=== PATIENT | male | born 1950 | race African-American/Black ===

== ENCOUNTER 2017-03-06 18:01 | Emergency (ER) | payer OTHER ==
[~2017-03-06] VITALS: Ht 175.3 cm; Wt 79.8 kg
[2017-03-06 18:10] VITALS: BP 149/79
--- NOTE | 2017-03-06 18:29 | NUR ---
Patient being evaluated by Dr. Elizabeth at bedside.
--- NOTE | 2017-03-06 18:31 | NUR ---
66/M c/o hypoglycemia since [id number] this afternoon. Hx DM, HTN. Patient is AOX4, at this time. Denies pain. Denies chest pain or SOB. Pt denies having an episode of hypoglycemia in the past, takes Metformin, no insulin use per patient. VSS at this time. No distress noted.
--- NOTE | 2017-03-06 18:42 | NUR ---
Lab at bedside for blood draw.
[2017-03-06] MEDS ORDERED: DEXTROSE 50% 50 ML SYR IVP ONE ×2 (18:45→21:00)
[2017-03-06 18:56] LABS: BASOPHILS # (AUTO) 0.2 K/uL (0.00-0.22); BASOPHILS % (AUTO) 2.3 % (0.0-2.0); EOSINOPHILS # (AUTO) 0.5 K/uL (0-0.4); EOSINOPHILS % (AUTO) 6.7 % (0.0-4.0); HEMATOCRIT 41.6 % (36-52); HEMOGLOBIN 13.8 g/dL (12.0-18.0); MEAN CORPUSCULAR HEMOGLOBIN 28 pg (27-31); MEAN CORPUSCULAR HGB CONC 33 g/dL (33-37); MEAN CORPUSCULAR VOLUME 85 fL (80-94); MONOCYTES # (AUTO) 0.7 K/uL (0.8-1.0); MONOCYTES % (AUTO) 9.8 % (1.7-9.3); NEUTROPHILS % (AUTO) 67.2 % (42.2-75.2); PLATELET COUNT (AUTO) 210 K/uL (140-450); RED BLOOD CELL COUNT(AUTO) 4.93 MIL/uL (4.20-6.10); RED CELL DISTRIBUTION WIDTH 13.6 % (11.6-13.7); WHITE BLOOD COUNT (AUTO) 7.4 K/uL (4.8-10.8)
[2017-03-06 18:58] LABS: APPEARANCE,URINE CLEAR (CLEAR); BILIRUBIN,URINE NEGATIVE (NEGATIVE); BLOOD, URINE TRACE-L (NEGATIVE); COLOR,URINE YELLOW (YELLOW); LEUKOCYTE ESTERASE ,URINE NEGATIVE (NEGATIVE); NITRITE, URINE NEGATIVE (NEGATIVE); PH,URINE 6.5 (5.0-9.0); UGLUCOSE NEGATIVE (NEGATIVE)
[2017-03-06 19:08] LABS: RBC,URINE 0-5 (RARE) /HPF (0-5); WBC,URINE NONE SEEN /HPF (0-5)
--- NOTE | 2017-03-06 19:16 | NUR ---
Pt report given to Magan LEVINE. Transfer of care at this time.
--- NOTE | 2017-03-06 19:17 | NUR ---
Food tray provided to pt.
[2017-03-06 19:18] LABS: ALBUMIN 3.6 g/dL (3.4-5.0); ANION GAP 11.1 (8-16); CARBON DIOXIDE 30.7 mmol/L (21-32); CREATININE 1.1 mg/dL (0.7-1.3); TOTAL BILIRUBIN 0.3 mg/dL (0.0-1.0)
[2017-03-06 19:22] LABS: POTASSIUM 2.8 mmol/L (3.5-5.1)
[2017-03-06] MEDS ORDERED: DEXTROSE 25% 10 ML SYR IVP ONE (20:40)
--- NOTE | 2017-03-06 20:53 | NUR ---
DEX 25 NOT AVAILABLE IN [facility], HOUSE SUP NOTIFIED, MOHAMMED.
--- NOTE | 2017-03-06 20:56 | NUR ---
PT GIVEN 2 CARTONS OF ORANGE JUICE, WHILE WAITING FOR DEX 25
--- NOTE | 2017-03-06 22:40 | NUR ---
PT PROVIDED WITH JUICE AND CRACKERS OTHERWISE, PT CALM AND COOPERATIVE. PT STATES HE IS JUST COLD, PT PROVIDED WITH WARM BLANKET
--- NOTE | 2017-03-07 00:05 | NUR ---
IV removed, catheter intact and site benign. Applied folded 4x4 gauze and tape to stop bleeding.
--- NOTE | 2017-03-07 00:09 | NUR ---
Patient discharged with v/s stable. Written and verbal after care instructions given and explained. Patient verbalized understanding. Ambulatory with steady gait. All questions addressed prior to discharge. Advised to follow up with PMD. PT GIVEN JUICE AND CRACKERS AND ENCOURAGED TO CHECK BLOOD SUGAR ROUTINELY WELL DIET AND NUTRITION TO MAINTAIN NORMAL BLOOD SUGAR RANGE >70 AND SIGNS AND SYMPTOMS OF HYPOGLYCEMIA AND HYPERGLYCEMIA.
[2017-03-07 00:11] VITALS: BP 129/76
== END 2017-03-07 00:09 | disposition home or self-care (01) ==
LOC: MED 18:01
DX: E11.649 Type 2 diabetes mellitus with hypoglycemia without coma (principal); I10 Essential (primary) hypertension; F17.210 Nicotine dependence, cigarettes, uncomplicated
CPT/HCPCS: 36415; 71010; 80053; 81001; 82948; 84484; 85025; 93005; 96374; 96375; 99285

== ENCOUNTER 2018-12-02 15:52 | Inpatient (IN) | payer OTHER ==
[~2018-12-02] VITALS: Ht 175.3 cm; Wt 114.3 kg
--- NOTE | 2018-12-02 16:00 | NUR ---
PT AMB TO BED 6 WITH STEADY GAIT
--- NOTE | 2018-12-02 16:01 | NUR ---
WITH CANE ASSISTANCE
[2018-12-02 16:02] VITALS: BP 124/58
--- NOTE | 2018-12-02 16:02 | NUR ---
DR CARCAMO AT BEDSIDE
--- NOTE | 2018-12-02 16:02 | NUR ---
C/O SOB X 2 DAYS. UPON TRIAGE PATIENT AT 72% RA. PT STARTED ON 5 L NC AND WENT UP TO 83%. PATIENT PLACED ON MASK AT 10L NOW AT 96%. WHEEZING BILATERALLY. RR 13. PITTING EDEMA IN LOWER EXTREMITIES. DENIES COPD, ASTHMA, CP, DIZZINESS, NAUSEA. BED DOWN, LOCKED, BED RAIL X 1, ERMD TO SEE PT. PMH- HTN, DM
[2018-12-02] MEDS ORDERED: ALBUTEROL 0.083% 2.5 MG/3 ML NEBU INH ONE (16:25)
[2018-12-02] MEDS ORDERED: IPRATROPIUM 0.02% 0.5 MG/2.5 ML NEBU INH ONE (16:25)
[2018-12-02] MEDS ORDERED: methylPREDNISolone SS 125 MG in WATER STERILE 2 ML IV ONE (16:25)
--- NOTE | 2018-12-02 16:30 | NUR ---
XRAY AT BEDSIDE
--- NOTE | 2018-12-02 16:36 | NUR ---
RT AT BEDSIDE
--- NOTE | 2018-12-02 16:57 | NUR ---
PATIENT STATES HE HAS BEEN SMOKING SINCE HE WAS 18
--- NOTE | 2018-12-02 16:59 | NUR ---
PT ON 5 L NC AT 93%
[2018-12-02] MEDS ORDERED: NACL 0.9% 3,000 ML IV ONE (17:44)
[2018-12-02] MEDS ORDERED: LEVOFLOXACIN 750 MG/D5W PREMIX 150 ML IV ONE (17:45)
[2018-12-02] MEDS ORDERED: VANCOMYCIN 1,000 MG in DEXTROSE 5% 250 ML IV ONE (17:45)
--- NOTE | 2018-12-02 18:01 | NUR ---
LAB AT BEDSIDE FOR BLOOD CULTURES
--- NOTE | 2018-12-02 18:02 | NUR ---
PT PLACED ON 10 L MASK. CONTINUED TO DROP INTO 80'S ON NC
[2018-12-02] MEDS ORDERED: VANCOMYCIN 1,000 MG VIAL ONE (18:04)
--- NOTE | 2018-12-02 18:23 | NUR ---
PT STATES HE DOESNT KNOW THE NAME OF ANY OF HIS MEDICATIONS
[2018-12-02 18:26] LABS: BASOPHILS % (AUTO) 0.3 % (0.0-2.0); EOSINOPHILS # (AUTO) 0.4 K/uL (0-0.4); EOSINOPHILS % (AUTO) 5.4 % (0.0-4.0); HEMATOCRIT 28.2 % (36-52); HEMOGLOBIN 8.7 g/dL (12.0-18.0); LYMPHOCYTES # (AUTO) 0.7 K/uL (2.0-11.5); LYMPHOCYTES % (AUTO) 9.6 % (20.5-51.1); MEAN CORPUSCULAR HEMOGLOBIN 22 pg (27-31); MEAN CORPUSCULAR HGB CONC 31 g/dL (33-37); MEAN CORPUSCULAR VOLUME 71.3 fL (80-94); MONOCYTES # (AUTO) 0.4 K/uL (0.8-1.0); MONOCYTES % (AUTO) 6.2 % (1.7-9.3); NEUTROPHILS # (AUTO) 5.5 K/uL (1.8-7.7); NEUTROPHILS % (AUTO) 78.5 % (42.2-75.2); PLATELET COUNT (AUTO) 204 K/uL (140-450); RED BLOOD CELL COUNT(AUTO) 3.95 MIL/uL (4.20-6.10); RED CELL DISTRIBUTION WIDTH 17.9 % (11.6-13.7)
[2018-12-02 18:45] LABS: PROTHROMBIN TIME 9.9 secs (10.8-13.4)
--- NOTE | 2018-12-02 18:45 | NUR ---
RECEIVED ENDORSEMENT FROM ED NURSE TEE. PATIENT IS AAOX4, SYRIAC SPEAKING. PATIENT IS ON 10L SIMPLE FACE MASK. RIGHT AC 20G IV INTACT, PATENT, AND INFUSING IVF. PATIENT AMBULATED TO BED WITH UNSTEADY GAIT, CANE AT BEDSIDE. VS OBTAINED, WILL ENDORSE TO OFFAL SEPARATOR. PATIENT IS STABLE AT THIS TIME.
[2018-12-02 18:47] LABS: POTASSIUM 3.6 mmol/L (3.5-5.1)
[2018-12-02 18:48] LABS: ALBUMIN 3.4 g/dL (3.4-5.0); ANION GAP 11.6 (8-16); CREATININE 1.6 mg/dL (0.7-1.3); TOTAL BILIRUBIN 0.6 mg/dL (0.0-1.0)
[2018-12-02 18:48] LABS: APPEARANCE,URINE CLEAR (CLEAR); BILIRUBIN,URINE NEGATIVE (NEGATIVE); BLOOD, URINE NEGATIVE (NEGATIVE); COLOR,URINE YELLOW (YELLOW); LEUKOCYTE ESTERASE ,URINE NEGATIVE (NEGATIVE); NITRITE, URINE NEGATIVE (NEGATIVE); PH,URINE 5.5 (5.0-9.0); UGLUCOSE NEGATIVE (NEGATIVE)
--- NOTE | 2018-12-02 18:53 | NUR ---
Patient will be admitted to care of GROBLER. Admited to TELE. Will go to room 120B. Belongings list completed. Report to ROSIE LEVINE. 100 ML OF LEVAQUIN STILL RUNNING UPON ADMIT, 2700ML OF NACL STILL RUNNING UPON ADMIT. PENDING MEDS- ODALYS
--- NOTE | 2018-12-02 19:20 | NUR ---
ENDORSED TO MANAGER FIELD SERVICE NURSE FOR CONTINUITY OF CARE. PATIENT IS STABLE AT THIS TIME.
--- NOTE | 2018-12-02 19:21 | NUR ---
REPORT RECEIVED FROM AM NURSE AT BEDSIDE. PT IN STABLE CONDITION. AAOX4. INTRODUCED SELF TO PT. BOARD UPDATED. NO COMPLAINTS OF PAIN. PT HAS SOB BUT IS ON 10L VIA SIMPLE MASK. AFEBRILE. IV SITE R AC 20G RUNNING 1/2NS@50ML/HR PATENT AND INTACT. SKIN WARM, DRY AND INTACT WITH NO OPEN WOUNDS. BED LOCKED IN LOW POSITION. CALL RUFFIN WITHIN REACH. SAFETY PRECAUTION IN PLACE. ALL NEEDS MET AT THIS TIME.
[2018-12-02 20:00] VITALS: BP 136/64
--- NOTE | 2018-12-02 20:38 | NUR ---
ODALYS JOSUE AND RUNNING. PT TOLERATING WELL.
--- NOTE | 2018-12-02 21:45 | NUR ---
PT AWAKE AND ALERT WATCHING TV AND RECEIVING BREATHING TREATMENT. PT IS SOB BUT NO OTHER S/S OF DISTRESS NOTED. WILL CONTINUE TO MONITOR.
[2018-12-02] MEDS: ALBUTEROL 0.083% 2.5 MG/3 ML NEBU IH PRN (21:51)
--- NOTE | 2018-12-02 23:45 | NUR ---
DILAUDID GIVEN FOR 01/02 GENERALIZED PAIN. PT TOLERATED WELL. BS 109. NO INSULIN COVERAGE NEEDED. Addendum: 12/02/18 at 2353 by Renzo Sherwood RN WRONG PATIENT WRONG INTERVENTION.
[2018-12-03] VITALS (66 sets, daily range): BP systolic 80–167; BP diastolic 45–114
[2018-12-03] MEDS ORDERED: methylPREDNISolone SS 40 MG in WATER STERILE 1 ML IV ONE ×2
[2018-12-03] MEDS: methylPREDNISolone SS 40 MG/ML VIAL IVP SCH ×5 (00:06→23:09)
--- NOTE | 2018-12-03 00:06 | NUR ---
SOLUMEDROL GIVEN IVP. PT TOLERATED WELL.
[2018-12-03] MEDS: ALBUTEROL 0.083% 2.5 MG/3 ML NEBU IH PRN ×2 (00:47→03:48)
[2018-12-03] MEDS: NACL 0.45% 1,000 ML IV SCH ×2 (01:00→13:16)
--- NOTE | 2018-12-03 01:01 | NUR ---
PATIENT HAVING SHORTNESS OF BREATH. HHNTX GIVEN. NO IMPROVED. PATIENT STATES HE CAN NOT BREATH. PLACED PATIENT ON BIPAP. IPAP12 EPAP 5 RR 16 FIO2 50%. WILL TITRATE FIO2 TO KEEP SATS GREATER THAN 88%. PT IS TOLERATING BIPAP AT THIS TIME. DR GREEN CALLED. NO REPONSE
--- NOTE | 2018-12-03 01:05 | NUR ---
MD NOTIFIED OF PATIENTS INCREASED WORK OF BREATHING. AWAITING CALL BACK FROM .
--- NOTE | 2018-12-03 01:15 | NUR ---
CALLED BACK. RECOMMENDED BIPAP ORDER AND ATIVAN. ORDERED [email or web address]. RR 16. FIO2 TOLERATED. ATIVAN 1MG IVP Q6H PRN FOR ANXIETY. TORB.
[2018-12-03] MEDS: LORazepam 2 MG/ML VIAL IM/IVP PRN ×2 (01:40→05:46)
--- NOTE | 2018-12-03 01:40 | NUR ---
ATIVAN GIVEN FOR AGITATION. PT TOLERATED WELL.
--- NOTE | 2018-12-03 01:50 | NUR ---
MD CALLED. TOLD TO CHANGE BIPAP SETTINGS TO IPAP 14/EPAP10 AND WANTS TO KEEP O2 SAT 90-94%. ORDERED ABG 1 HOUR AFTER BEING ON BIPAP. TORB
--- NOTE | 2018-12-03 02:04 | NUR ---
placed patient on ipap of 10 and epap of 14. patient could not tolerate it. pt became agitated. placed pt on ipap12 epap6 and patient tolerated that setting. abg pending
--- NOTE | 2018-12-03 02:49 | NUR ---
post abg dr machado asked to change bipap to ipap 18 and epap 10. pt will be transfered to icu
--- NOTE | 2018-12-03 03:15 | NUR ---
TRANS IN FROM TELEMETRY THIS 68 YEAR OLF MALE PATIENT DUE RESPIRATORY DISTRESS; ON 4O% BIPAP. PATIENT IS ALERT,BUT SOMEWHAT RESTLESS. IVF IN PROGRESS 1/2 NS AT 50 ML/HR VIA G 20 IV CANNULA ON RIGHT AC; PATENT AND INTACT.ABDOMEN SOFT, BOWEL SOUNDS ACTIVE.
--- NOTE | 2018-12-03 03:15 | NUR ---
PT TRANSFERRED TO ICU. PT NOT IN STABLE CONDITION. REPORT GIVEN TO ELTON CHARGE NURSE.
--- NOTE | 2018-12-03 03:22 | NUR ---
0315 PT TRANSFERED TO ICU 3 ON BIPAP
--- NOTE | 2018-12-03 03:53 | NUR ---
PT GIVEN HHNTX DUE TO SOB
--- NOTE | 2018-12-03 04:50 | NUR ---
CALLED RT FOR PATIENT DESATTING TO 70'S%. RT AT PATIENT BEDSIDE TO ADJUST SETTINGS
[2018-12-03 05:48] LABS: BASOPHILS % (AUTO) 0.2 % (0.0-2.0); HEMATOCRIT 30.4 % (36-52); HEMOGLOBIN 9.2 g/dL (12.0-18.0); LYMPHOCYTES # (AUTO) 0.4 K/uL (2.0-11.5); LYMPHOCYTES % (AUTO) 4.3 % (20.5-51.1); MEAN CORPUSCULAR HEMOGLOBIN 22 pg (27-31); MEAN CORPUSCULAR HGB CONC 30 g/dL (33-37); MEAN CORPUSCULAR VOLUME 72.3 fL (80-94); MONOCYTES # (AUTO) 0.1 K/uL (0.8-1.0); MONOCYTES % (AUTO) 1.2 % (1.7-9.3); NEUTROPHILS # (AUTO) 8.4 K/uL (1.8-7.7); NEUTROPHILS % (AUTO) 94.3 % (42.2-75.2); PLATELET COUNT (AUTO) 195 K/uL (140-450); RED BLOOD CELL COUNT(AUTO) 4.21 MIL/uL (4.20-6.10); RED CELL DISTRIBUTION WIDTH 17.4 % (11.6-13.7); WHITE BLOOD COUNT (AUTO) 8.9 K/uL (4.8-10.8)
--- NOTE | 2018-12-03 05:48 | NUR ---
PATIENT VERY ANXIOUS AND THRASHING HANDS UP AND AROUND, YELLING HE IS COLD, ATTEMPTED TO REORIENT PATIENT AND CALM HIM DOWN, PATIENT CONTINUING TO SCREAM AND DEGOWN. GIVEN PRN MEDS. RN AT BEDSIDE TO MONITOR CLOSELY
[2018-12-03] MEDS ORDERED: PROPOFOL 1000 MG/100 ML PREMIX 100 ML IV PRN (06:25)
--- NOTE | 2018-12-03 06:44 | NUR ---
0547 ab drawn and results given to dr machado. dr machado said to have er dr holder intubate.
--- NOTE | 2018-12-03 06:46 | NUR ---
0600 dr holder came to intubate. pt was a hard intubation so lma had to be used. size 5. pt placed on ac 12 vt 500 peep 5 and fio2 100%.
[2018-12-03 06:50] LABS: ALBUMIN 3.5 g/dL (3.4-5.0); ANION GAP 11.7 (8-16); CARBON DIOXIDE 30.7 mmol/L (21-32); CREATININE 1.3 mg/dL (0.7-1.3); POTASSIUM 4.4 mmol/L (3.5-5.1); TOTAL BILIRUBIN 0.5 mg/dL (0.0-1.0)
--- NOTE | 2018-12-03 06:52 | NUR ---
CALLED PATIENT'S FAMILY, NATALIE GRANDA TO UPDATE ON PATIENT'S MEDICAL CONDITION BUT NOBODY PRINT COLOR OPERATOR THE PHONE; LEFT MESSAGE.
--- NOTE | 2018-12-03 06:55 | NUR ---
DR. GREEN CALLED, UPDATED ON PATIENT'S MEDICAL CONDITION, NO FURTHER ORDER MADE.
[2018-12-03] MEDS ORDERED: PROPOFOL 1000 MG/100 ML PREMIX 100 ML IV ONE (06:57)
--- NOTE | 2018-12-03 07:10 | NUR ---
ORDERED ANESTHESIOLOGIST TO INTUBATE PATIENT. ONLY LMA STARTED WILL ENDORSE
--- NOTE | 2018-12-03 07:16 | NUR ---
PATIENT STABLE AT THIS TIME, ON PROPOFOL DRIP, 5MCG/KG/MIN. DRY WEIGHT OF 116KG. RASS -3
--- NOTE | 2018-12-03 07:28 | NUR ---
RECEIVED BEDSIDE REPORT FROM CANTEEN MANAGER RNCIPRIANO. PATIENT IS SEDATED, IN PREPARATION FOR INTUBATION BE DR. WILHELM, ANESTHESIOLOGIST. DR. GREEN IS AT BEDSIDE, UPDATED ON PATIENT'S CONDITION. PATIENT SKIN IS WARM, DRY, NOT INTACT, HAS OPEN WOUND TO LEFT LOWER LEG. PATIENT HAS PERIPHERAL IV SITE TO RIGHT AC, 20 GAUGE. NO SIGNS OF DISTRESS AT THIS TIME, WILL CONTINUE TO MONITOR
--- NOTE | 2018-12-03 07:35 | NUR ---
, ANESTHESIOLOGIST, AND RT AT BEDSIDE TO START INTUBATION
[2018-12-03] MEDS ORDERED: FUROSEMIDE 40 MG/4 ML VIAL IVP SCH (07:46)
--- NOTE | 2018-12-03 07:48 | NUR ---
PATIENT INTUBATED BY DR. WILHELM, RT AT BEDSIDE, DR. GREEN AT BEDSIDE. PATIENT TOLERATED WELL.
--- NOTE | 2018-12-03 08:27 | NUR ---
PATIENT HAS BEEN SCREENED AND CATEGORIZED MODERATE NUTRITION RISK. PATIENT WILL BE SEEN WITHIN 3-5 DAYS OF ADMISSION. 12/05/18JAY [address]
--- NOTE | 2018-12-03 09:00 | NUR ---
Dr ordered intubation via glide scope, hard intubation, used LMA and then pt was placed on ventilator per Dr Burnetter vent order.
[2018-12-03] MEDS ORDERED: ETOMIDATE 20 MG/10 ML VIAL IVP ONE (09:15)
[2018-12-03] MEDS ORDERED: SUCCINYLCHOLINE CHLORIDE 200 MG/10 ML VIAL IVP ONE ×2 (09:15)
[2018-12-03] MEDS: ENOXAPARIN 40 MG/0.4 ML SYR SUBQ SCH (09:27)
--- NOTE | 2018-12-03 09:33 | NUR ---
DR. WALTERS IS HERE TO SEE PATIENT, UPDATED ON PATIENT'S CONDITION
--- NOTE | 2018-12-03 09:45 | NUR ---
DR. WALTERS IS AWARE THAT WE ARE UNABLE TO GET IN CONTACT WITH PATIENT'S DAUGHTER TO OBTAIN CONSENT, HE STATES THAT CT SCAN IS NOT URGENT AND CAN WAIT UNTIL CONSENT IT OBTAINED.
[2018-12-03] MEDS ORDERED: POTASSIUM CHLORIDE 10 MEQ TABER PO PRN (09:55)
[2018-12-03] MEDS: fentaNYL 1 MG in NACL 0.9% 80 ML IV PRN (10:41)
--- NOTE | 2018-12-03 10:59 | NUR ---
STARTED PATIENT ON PROPOFOL AT 5MCG/KG/MIN, PATIENT'S DRY WEIGHT IS 116KG. ORDER IS TO MAINTAIN RASS OF -2
[2018-12-03] MEDS: PROPOFOL 1000 MG/100 ML PREMIX 100 ML IV PRN ×3 (11:08→23:07)
[2018-12-03] MEDS ORDERED: ALBUTEROL 0.083% 2.5 MG/3 ML NEBU INH PRN (11:35)
--- NOTE | 2018-12-03 12:09 | NUR ---
CONTACTED PATIENT'S PCP DR WILBERTO NAVARRO'S OFFICE AT [phone], ABLE TO SPEAK TO CRYSTAL. SHE PROVIDED ME WITH Nov AT 2155. COPY OF APPOINTMENT PROVIDED TO THE PATIENT.
[2018-12-03] MEDS: ALBUTEROL SULFATE/IPRATROPIU 3 ML SOL IH SCH ×2 (13:06→20:39)
[2018-12-03] MEDS: MIDODRINE 5 MG TAB PO SCH ×3 (13:15→23:09)
--- NOTE | 2018-12-03 14:51 | NUR ---
PATIENT'S BROTHER, OXANA JAMISON, IS HERE, STATES THAT HE WILL GET INTO CONTACT WITH PATIENT'S DAUGHTER.
--- NOTE | 2018-12-03 15:33 | NUR ---
WOUND CARE EVALUATION NOTE: REASON FOR CONSULTATION: LLE ULCER AND LOW FAUSTO SCALE WOUND ASSESSMENT DONE TO LLE TO THIS 68 Y/O MALE WITH INITIAL DX: OF SOB X 2 DAYS. PT IS SEDATED AND INTUBATED. POC DISCUSSED WITH PRIMARY RN INTEGUMENTARY: -LEFT LOWER EXTREMITY WITH OLD SKIN GRAFT / HEALED SCARS -LEFT LOWER MEDIAL LEG 2 ULCERATIONS WITH WOUND EDGE ALMOST MERGED: PROXIMAL SITE 3X3X0.8CM WOUND BED IS PINK WITH TRACE YELLOW SLOUGH, MILD SEROUS DRAINAGE, NO ODOR. DISTAL SITE 5X3X0.5 CM WOUND BED IS PINK WITH TRACE YELLOW SLOUGH, MILD SEROUS DRAINAGE, NO ODOR, PINA-WOUNDS SKIN INTACT. -XEROSIS TO RIGHT AND LEFT FEET WITH DRY CRUSTED SKIN -SACRAL COCCYX HEALING SCAR AT REMODELING STAGE, PINA WOUND BLANCHABLE REDNESS EXTENDED TO LEFT AND RIGHT BUTTOCKS. -BLANCHABLE REDNESS TO SACRALCOCCYX AND BUTTOCKS -BILATERAL HEELS BLANCHABLE REDNESS RECOMMENDATIONS: -APPLY SKIN MOISTURIZER TO L/R FEET BID -CLEANSE LLE VASCULAR ULCER WITH WOUND CLEANSING SOLUTION, PAT DRY, APPLY THERAHONEY DRESSING AND COVER WITH DRY DRESSING AND SECURE WITH TAPE 3XWEEK, M-W-F AND PRN IF SOILING -CLEANSE SACRAL COCCYX, R/L BUTTOCKS WITH SOAP AND WATER, PAT DRY, COVER WITH OPTIFORM DRESSING QD AND PRN IF SOILING -TURN AND REPOSITION Q2H, OFFLOAD RIGHT EAR, SACROCOCCYX AND BUTTOCKS -OFFLOAD BILATERAL HEELS BY PLACING PILLOWS UNDER CALVES ALWAYS, UNLESS OTHERWISE CONTRAINDICATED -PRESSURE REDISTRIBUTION SURFACE THERAPY RECOMMENDATIONS DISCUSSED WITH PRIMARY RN WILL FOLLOW UP PATIENT Q 7 -10 DAYS AND PRN. PLEASE CONTACT WOUND CARE NURSE FOR ANY CONCERNS AND CHANGES IN WOUND CONDITION
--- NOTE | 2018-12-03 16:54 | NUR ---
DR. MARTINEZ IN TO SEE PATIENT, UPDATED ON PATIENT'S CONDITION.
--- NOTE | 2018-12-03 17:31 | NUR ---
RT AT BEDSIDE, FIO2 TITRATED TO 60%, O2 SAT IS 95
--- NOTE | 2018-12-03 17:52 | NUR ---
After ABG Per DR. Carmona cont. current setting with follow-up ABG in the morning. Will indorse to LADARIUS. RN aware.
--- NOTE | 2018-12-03 19:30 | NUR ---
RECEIVED REPORT FROM DAY SHIFT RN NO ACUTE DISTRESS NOTED WILL CONTINUE TO OBSERVE.
--- NOTE | 2018-12-03 19:45 | NUR ---
PT HAS EYES CLOSED; AROUSABLE, NODS HEAD WHEN PROMPTED. PT DENIES PAIN. FLACC 0. PERIORBITAL EDEMA NOTED. 7.5 ETT TO VENT ON 60% FIO2 TV 500 PEEP 5 R 25. LUNGS CLEAR/DIMINISHED, SCANT SPUTUM THORUGH INLINE SUCTION. SR 60-70S, GENERALIZED EDEMA +1. +1 WEAK PULSES TO BILAT RADIAL AND BILAT PEDAL +1. NGT TO R NARES. FLUSHED, + PLACEMENT. ACTIVE BOWEL SOUNDS X4 QUADRANTS. NICOLE CATH IN PLACE, YELLOW URINE NOTED. SKIN NON INTACT; L LOWER LEG OPEN WOUND, DRESSING IN PLACE, CDI. PIV TO R AC 20 G. PT ON PROPOFOL DRIP @ 10 MCG/KG/MIN. FENTANYL DRIP @ 50 MCG/KG/HR. BED LOCKED IN LOWEST POSITION. SAFETY PRECAUTIONS IN PLACE. ALARMS CHECKED AND VERIFIED. DRY WEIGHT: 116 KG Addendum: 12/05/18 at 2223 by Rico Becker RN 0.5 MCG/KG/HR
[2018-12-03] MEDS: LEVOFLOXACIN 500 MG/D5W PREMIX 100 ML IV SCH (20:27)
--- NOTE | 2018-12-03 21:10 | NUR ---
RECEIVED PATIENT ENDOTRACHEALLY INTUBATED WITH 7.5 ETT TO MECHANICAL VENTILATOR AT SETTINGS: AC/VC 25, 500, +5, 60%. VENT CHECK DONE. VENT ALARMS ON AND AUDIBLE. VENT PLUGGED INTO RED OUTLET. VENT WHEELS LOCKED. AMBU BAG AT [facility]. AIRWAY SECURE AND PATENT. SUCTIONED SCANT AMOUNT OF THIN, CLEAR SECRETIONS. SCHEDULED BREATHING TREATMENT ADMINISTERED. TOLERATED TX WELL WITHOUT ADVERSE SIDE EFFECTS. NO ACUTE DISTRESS NOTED AT THIS TIME. WILL CONTINUE TO MONITOR. Addendum: 12/04/18 at 0123 by Génesis Funes RT FIO2 TITRATED TO 50%, PULSE OX SAT 98%.
--- NOTE | 2018-12-03 23:17 | NUR ---
VENT CHECK DONE. VENT ALARMS ON AND AUDIBLE. SUCTIONED SCANT AMOUNT OF THIN, CLEAR/YELLOW SECRETIONS. NO ACUTE DISTRESS. WILL CONTINUE TO MONITOR.
[2018-12-04] VITALS (102 sets, daily range): BP systolic 95–154; BP diastolic 54–116
--- NOTE | 2018-12-04 00:24 | NUR ---
PT TURNED AND REPOSITIONED. FLACC 0. VSS. NO ACUTE DISTRESS NOTED. WILL CONTINUE TO OBSERVE.
[2018-12-04] MEDS: fentaNYL 1 MG in NACL 0.9% 80 ML IV PRN (00:52)
[2018-12-04] MEDS: ALBUTEROL SULFATE/IPRATROPIU 3 ML SOL IH SCH ×4 (01:15→19:45)
--- NOTE | 2018-12-04 01:28 | NUR ---
VENT CHEK DONE. VENT ALARMS ON AND AUDIBLE. SCHEDULED BREATHING TREATMENT ADMINISTERED. TOLERATED TX WELL WITHOUT ADVERSE SIDE EFFECTS. NO ACUTE RESPIRATORY DISTRESS NOTED AT THIS TIME. WILL CONTINUE TO MONITOR.
--- NOTE | 2018-12-04 03:15 | NUR ---
AM CARE PROVIDED; LINEN CHANGED, X1 BM NOTED. PT TOLERATED WELL.
[2018-12-04] MEDS: MIDODRINE 5 MG TAB PO SCH ×3 (05:57→17:37)
[2018-12-04] MEDS: methylPREDNISolone SS 40 MG/ML VIAL IVP SCH ×3 (05:57→17:37)
[2018-12-04] MEDS: PROPOFOL 1000 MG/100 ML PREMIX 100 ML IV PRN ×3 (06:25→20:26)
--- NOTE | 2018-12-04 07:22 | NUR ---
BEDSIDE REPORT RECEIVED FROM GLOVE SEWER NURSE ERIC, POC REVIEWED, PT ON ETT TO VENT ON PROPOFOL AND FENTANYL DRIP, RESTING QUIETLY WITH EYES CLOSED, OPENS EYES TO VOICE, FOLLOWS COMMANDS, PROPERTY CONSULTANT HANDS ON COMMANDS, FLACC 0, VENT SETTING: FIO2 50%, VT 500, RR 25, PEEP 5, ETT 7.5FR, 22CM AT GUM, GOOD CHEST RISE AND FALL NOTED, HR 67, NSR ON SLASHER TENDER HELPER, 20G PIV TO RIGHT AC AND RIGHT UPPER ARM, INFUSING WELL, SITES WNL, PROPOFOL INFUSING AT 15MCG/KG/MIN (DRY WT 116KG), FENTANYL INFUSING AT 0.5MCG/KG/HR, GENERALIZED EDEMA TO BILAT UPPER AND LOWER EXT, +1-2 PITTING, NGT IN RIGHT NARE CLAMPED, ABD ROUND, SOFT, + BS TO ALL 4 QUADS, NICOLE CATH IN PLACE, DRAINING CLEAR YELLOW TO GRAVITY, SKIN WARM AND DRY, OPEN WOUND TO POSTERIOR LEFT LOWER LEG COVERED WITH DRESSING, CDI, PT WITH SOFT WRIST RESTRAINTS TO PREVENT PULLING ON LINES AND TUBINGS. BED LOCKED IN LOW POSITION, PT IN NO ACUTE DISTRESS AT THIS TIME, WILL CONTINUE TO MONITOR.
--- NOTE | 2018-12-04 07:33 | NUR ---
RECEIVED PT ON [place]ESCAPE ON DOCUMENTED SETTINGS, ALARMS ARE ON AND AUDIBLE, PTS ETT IS SECURE SIZE 7.5 AT 24 CM, PT IN HF QUIET, BS MODESTO, HHN GIVEN I\L WITH 3 MG DUONEB, BMV HOB, VENT PLUGGED INTO RED OUTET PT IS RESTRAINED
--- NOTE | 2018-12-04 07:44 | NUR ---
DECREASED FIO2 TO 35 SPO2 93
[2018-12-04 08:02] LABS: HEMATOCRIT 28.4 % (36-52); HEMOGLOBIN 8.7 g/dL (12.0-18.0); LYMPHOCYTES # (AUTO) 0.3 K/uL (2.0-11.5); LYMPHOCYTES % (AUTO) 3.5 % (20.5-51.1); MEAN CORPUSCULAR HEMOGLOBIN 22 pg (27-31); MEAN CORPUSCULAR HGB CONC 31 g/dL (33-37); MEAN CORPUSCULAR VOLUME 70.9 fL (80-94); MONOCYTES # (AUTO) 0.6 K/uL (0.8-1.0); MONOCYTES % (AUTO) 6.1 % (1.7-9.3); NEUTROPHILS # (AUTO) 8.4 K/uL (1.8-7.7); NEUTROPHILS % (AUTO) 90.4 % (42.2-75.2); PLATELET COUNT (AUTO) 194 K/uL (140-450); RED BLOOD CELL COUNT(AUTO) 4.01 MIL/uL (4.20-6.10); RED CELL DISTRIBUTION WIDTH 17.7 % (11.6-13.7); WHITE BLOOD COUNT (AUTO) 9.3 K/uL (4.8-10.8)
--- NOTE | 2018-12-04 08:35 | NUR ---
PT RESTLESS, KICKING LEGS, FENTANYL DRIP TITRATED UP TO 1MCG/KG/HR.
--- NOTE | 2018-12-04 08:40 | NUR ---
PT CALM QUIET RESTING WITH EYES CLOSED.
[2018-12-04] MEDS: ENOXAPARIN 40 MG/0.4 ML SYR SUBQ SCH (09:07)
[2018-12-04] MEDS ORDERED: DEXTROSE 50% 50 ML SYR IVP PRN (09:45)
--- NOTE | 2018-12-04 09:45 | NUR ---
DR WALTERS AT BEDSIDE FOR EVAL.
--- NOTE | 2018-12-04 09:50 | NUR ---
PROPOFOL AND FENTANYL DRIPS STOPPED PER DR WALTERS FOR WEANING, CPAP TRIAL, WILL CONTINUE TO MONITOR.
--- NOTE | 2018-12-04 09:54 | NUR ---
CPAP TRIAL STARTED BY RT.
--- NOTE | 2018-12-04 10:04 | NUR ---
SW contacted patient's daughter, Lizett Perdue [phone] to conduct assessment. SW left voicemail. SW will follow up.
--- NOTE | 2018-12-04 10:10 | NUR ---
CPAP TRIAL ENDED, VENT AUTOMATICALLY TURNED BACK TO AV/VC MODE. RT CALI MADE AWARE. PROPOFOL DRIP RESTARTED. WILL CONTINUE TO MONITOR.
--- NOTE | 2018-12-04 10:40 | NUR ---
DAUGHTER NATALIE GRANDA AT BEDSIDE, CONSENT FOR CONTRAST INJECTION SIGNED.
--- NOTE | 2018-12-04 11:12 | NUR ---
ADVANCED ETT 3 CM TO 24 CM CXR ORDERED
--- NOTE | 2018-12-04 11:28 | NUR ---
CXR AT BEDSIDE TO CONFIRM ETT PLACEMENT
[2018-12-04] MEDS ORDERED: MORPHINE SULFATE 4 MG/ML SYR IVP PRN (11:30)
--- NOTE | 2018-12-04 11:45 | NUR ---
DAUGHTER NATALIE AND FAMILY MEMBERS AT BEDSIDE. PT OPENS EYES TO VOICE, RESPONDS BY NODDING/SHAKING HEAD. PT REMAINS ON PROPOFOL DRIP, ETT TO VENT AT FIO2 35%, VT 500, RR 25, PEEP 5.
[2018-12-04 11:53] LABS: ANION GAP 13.8 (8-16); CARBON DIOXIDE 27.6 mmol/L (21-32); POTASSIUM 4.4 mmol/L (3.5-5.1)
[2018-12-04 11:54] LABS: TOTAL BILIRUBIN 0.5 mg/dL (0.0-1.0)
[2018-12-04 11:55] LABS: ALBUMIN 3.1 g/dL (3.4-5.0)
[2018-12-04] MEDS: BLOOD GLUCOSE MONITORING 1 DEV DEV FS SCH ×3 (11:56→20:49)
[2018-12-04] MEDS: INSULIN LISPRO SLIDING SCALE 100 UNITS/ML VIAL SUBQ PRN ×2 (11:57→20:48)
[2018-12-04 12:50] LABS: CREATININE 1.5 mg/dL (0.7-1.3)
--- NOTE | 2018-12-04 12:50 | NUR ---
ORAL CONTRAST VIA NGT STARTED AT THIS TIME.
--- NOTE | 2018-12-04 13:22 | NUR ---
WOUND CARE DONE, LLE WOUND CLEANED WITH NS, PAT DRY, THERAHONEY APPLIED, COVERED WITH DRESSING, SACRAL AREA WITH SLIGHT REDNESS, NO OPEN WOUND, CLEANED, PAT DRY, COVERED WITH OPTIFOAM, PT JEREL WELL, NICLOE CARE DONE, PT CONTINUES WITH ORAL CONTRAST VIA NGT,JEREL WELL, PT RESTING QUIETLY IN NO ACUTE DISTRESS AT THIS TIME, WILL CONTINUE TO MONITOR.
[2018-12-04] MEDS: THERAHONEY WOUND DRESSING TP SCH (14:01)
--- NOTE | 2018-12-04 14:22 | NUR ---
PT RESTING COMFORTABLY, APPEARS IN NO ACUTE DISTRESS, DAUGHTER NATALIE AND BROTHER AT BEDSIDE, PT OCCASIONALLY OPENS EYES TO VOICE. WILL CONTINUE TO MONITOR.
--- NOTE | 2018-12-04 14:23 | NUR ---
12/04/18 RD INITIAL ASSESSMENT COMPLETED PLEASE REFER TO NUTRITION ASSESSMENT UNDER CARE ACTIVITY FOR ESTIMATED NUTRITIONAL NEEDS. 1. RECOMMEND INCREASING TUBE FEEDINGS WITH GLUCERNA 1.2 TO 60 ML/HR WITH PROSOURCE BID -THIS WILL PROVIDE 1848 CALORIES AND 116 GM OF PROTEIN WHICH MEETS 100% OF ESTIMATED NEEDS 2. RECOMMEND FREE WATER FLUSH [address] TO FOLLOW-UP 2-3 DAYS, HIGH RISK JAY HIGHTOWER RD
--- NOTE | 2018-12-04 16:15 | NUR ---
PT TO RADIOLOGY FOR CT ABD AND CHEST WITH CONTRAST WITH RN AND RT ON MONITOR.
--- NOTE | 2018-12-04 16:50 | NUR ---
PT BACK FROM CT.
--- NOTE | 2018-12-04 16:55 | NUR ---
PT AWAKE WITH EYES OPEN, RESTLESS, WAVING HANDS, PROPOFOL RATE INCREASED, WILL CONTINUE TO MONITOR.
--- NOTE | 2018-12-04 17:15 | NUR ---
PT RESTING WITH EYES CLOSED, NO RESP DISTRESS, WILL CONTINUE TO MONITOR.
--- NOTE | 2018-12-04 18:03 | NUR ---
TUBE FEEDING GLUCERNA STARTED VIA NGT, STARTED AT 10ML/HR GOAL OF 40ML/HR WITH WATER FLUSH 50ML EVERY 6 HRS.
--- NOTE | 2018-12-04 19:17 | NUR ---
BEDSIDE REPORT GIVEN TO SURGICAL ASST NURSE, PT RESTING WITH EYES CLOSED, NO ACUTE DISTRESS NOTED AT THIS TIME.
[2018-12-04] MEDS: LEVOFLOXACIN 500 MG/D5W PREMIX 100 ML IV SCH (20:42)
[2018-12-05] VITALS (50 sets, daily range): BP systolic 121–178; BP diastolic 55–92
[2018-12-05] MEDS: ALBUTEROL SULFATE/IPRATROPIU 3 ML SOL IH SCH ×4 (01:00→19:41)
[2018-12-05] MEDS: MIDODRINE 5 MG TAB PO SCH ×4 (01:07→17:23)
[2018-12-05] MEDS ORDERED: methylPREDNISolone SS 40 MG/ML VIAL ONE ×2 (01:18→06:51)
[2018-12-05] MEDS: methylPREDNISolone SS 40 MG/ML VIAL IVP SCH ×4 (01:40→17:24)
[2018-12-05] MEDS: PROPOFOL 1000 MG/100 ML PREMIX 100 ML IV PRN ×2 (01:43→06:55)
--- NOTE | 2018-12-05 07:25 | NUR ---
RECIVED PT ON VENT WITH SETTINGS CHARTED BREATH SOUNDS PRESENT BILAT WITH RALES SXN PT WITH MOD AMT OFF WHITE SECS TRACH SITE SECURE AMBU BAG AT BEDSIDE VENT PLUGGED INTO RED OUTLET WILL CONTINUE TO MONITOR PT ON VENT
--- NOTE | 2018-12-05 07:30 | NUR ---
BEDSIDE REPORT RECEIVED FROM CHILD HEALTH ASSOCIATE RN. PT IS SEDATED, RASS -2. AFEBRILE. FLACC 0. NORMAL SINUS RHYTHM ON MONITOR. S1 +S2 HEARD. ETT TO VENT: AC VC FIO2 35%, VT 500, RR 25, PEEP 5. RHONCHI HEARD BILATERALLY. BREATHING EVEN AND UNLABORED. NGT IN PLACE TO RIGHT NARE, PLACEMENT CONFIRMED. NO RESIDUALS NOTED. PT IS ON TUBE FEEDING GLUCERNA AT 40 ML/HR AND WATER FLUSH 50 ML Q6H. PERIPHERAL IVS G20 TO RIGHT AC AND RIGHT UPPER ARM ASYMPTOMATIC, PATENT AND INTACT, RUNNING PROPOFOL DRIP AT 25 MCG/KG/MIN (DRY WEIGHT 116 KG). NICOLE CATH IN PLACE DRAINING CLEAR YELLOW URINE. SKIN IS DRY AND WARM TO TOUCH. OPEN SKIN AND SKIN GRAFT TO LEFT LOWER LEG, DRESSING CDI. PULSES PALPABLE TO ALL EXTREMITIES. HOB 30 DEGREES, BED IN LOWEST POSITION AND CALL LIGHT WITHIN REACH. WILL CONTINUE TO MONITOR.
[2018-12-05] MEDS: BLOOD GLUCOSE MONITORING 1 DEV DEV FS SCH ×4 (08:07→21:29)
[2018-12-05] MEDS: INSULIN LISPRO SLIDING SCALE 100 UNITS/ML VIAL SUBQ PRN ×3 (08:12→21:42)
[2018-12-05] MEDS: ENOXAPARIN 40 MG/0.4 ML SYR SUBQ SCH (08:12)
--- NOTE | 2018-12-05 08:30 | NUR ---
MEDICATIONS ADMINISTERED ORDERED. PT TOLERATED WELL.
--- NOTE | 2018-12-05 08:45 | NUR ---
SEDATION OFF FOR CPAP WEANING TRIAL. VSS. WILL CONTINUE TO MONITOR.
--- NOTE | 2018-12-05 09:00 | NUR ---
PT PLACED ON CPAP WITH SETTINGS CHARTED
[2018-12-05 09:36] LABS: BASOPHILS # (AUTO) 0.1 K/uL (0.00-0.22); HEMOGLOBIN 9.6 g/dL (12.0-18.0); LYMPHOCYTES # (AUTO) 0.4 K/uL (2.0-11.5); LYMPHOCYTES % (AUTO) 4.8 % (20.5-51.1); MEAN CORPUSCULAR HEMOGLOBIN 22 pg (27-31); MEAN CORPUSCULAR HGB CONC 31 g/dL (33-37); MEAN CORPUSCULAR VOLUME 70.1 fL (80-94); MONOCYTES # (AUTO) 0.4 K/uL (0.8-1.0); MONOCYTES % (AUTO) 4.5 % (1.7-9.3); NEUTROPHILS # (AUTO) 8.3 K/uL (1.8-7.7); NEUTROPHILS % (AUTO) 89.7 % (42.2-75.2); PLATELET COUNT (AUTO) 228 K/uL (140-450); RED BLOOD CELL COUNT(AUTO) 4.42 MIL/uL (4.20-6.10); RED CELL DISTRIBUTION WIDTH 18.1 % (11.6-13.7); WHITE BLOOD COUNT (AUTO) 9.2 K/uL (4.8-10.8)
[2018-12-05 09:52] LABS: ANION GAP 11.1 (8-16); CARBON DIOXIDE 27.9 mmol/L (21-32); CREATININE 1.1 mg/dL (0.7-1.3); TOTAL BILIRUBIN 0.5 mg/dL (0.0-1.0)
--- NOTE | 2018-12-05 11:45 | NUR ---
PT EXTUBATED AND PLACED ON BIPAP WITH SETTINGS CHARTED PER DR WALTERS
--- NOTE | 2018-12-05 11:50 | NUR ---
PT EXTUBATED, PUT ON BIPAP BY RT. VSS. NO SIGNS OF DISTRESS NOTED AT THIS TIME. WILL CONTINUE TO MONITOR.
--- NOTE | 2018-12-05 15:00 | NUR ---
BEDSIDE SWALLOW EVAL DONE. PT ABLE TO SWALLOW JELLO AND APPLE SAUCE WITHOUT ANY DIFFICULTY. NO COUGHING NOTED. VSS. CHARGE NURSE AT BEDSIDE AWARE.
--- NOTE | 2018-12-05 16:00 | NUR ---
PT'S BLOOD PRESSURE 160/90. DR. WALTERS MADE AWARE. ORDER RECEIVED.
[2018-12-05] MEDS: NIFEdipine 10 MG CAPLF PO SCH (16:40)
--- NOTE | 2018-12-05 17:30 | NUR ---
PT HAVING DINNER. ABLE TO EAT INDEPENDENTLY. NEEDS WELL ATTENDED. VSS. NO S/SX OF DISTRESS AT THIS TIME. WILL CONTINUE TO MONITOR.
--- NOTE | 2018-12-05 18:00 | NUR ---
TUBE FEEDING GLUCERNA STARTED VIA G- TUBE AT 15 ML/HR. GOAL RATE 60 ML/HR WITH WATER FLUSH 145 ML Q6H. Addendum: 12/05/18 at 1820 by Geoffrey Quiros RN WRONG PATIENT
--- NOTE | 2018-12-05 19:07 | NUR ---
REPORT GIVEN TO SALES MERCHANDISER RN FOR CONTINUITY OF CARE. PT IS IN STABLE CONDITION.
--- NOTE | 2018-12-05 19:08 | NUR ---
REPORT GIVEN TO BRAND ADVOCATE RN FOR CONTINUITY OF CARE. NO S/SX OF DISTRESS NOTED AT THIS TIME.
--- NOTE | 2018-12-05 19:15 | NUR ---
RECEIVED CHANGE OF SHIFT REPORT FROM AM NURSE. PATIENT IS AWAKE, ALERT, AND A/O X4. PERRLA IS PRESENT WITH PUPILS BILATERAL SIZE 3MM. SKIN IS WARM, DRY, AND INTACT EXCEPT FOR LLE OPEN WOUND FROM PREVIOUS SKIN GRAFT (HX: OF FLESH EATING BACTERIA) - DRESSING IS CLEAN DRY/INTACT PULSES 2+ BILATERAL UPPER AND LOWER EXTREMITIES, HOWEVER LEFT LOWER EXTREMITY IS 1+. NONPITTING EDEMA IS NOTED IN BILATERAL LOWER EXTREMITIES. LUNG SOUNDS ARE CLEAR THROUGHOUT, BUT SLIGHTLY DIMINISHED IN THE BIBASILAR LOBES. PATIENT USES BIPAP AT NIGHT, AND Ss02 IS TO BE KEPT BETWEEN 88-92%. NSR ON ALLOCATION ANALYST. S1 AND S2 SOUND PRESENT. RIGHT AC 20 GAUGE PATENT IV SITE WITH DRESSING/SITE DRY AND INTACT, AND SALINE LOCKED. RIGHT UPPER ARM 20 GAUGE PATENT IV SITE WITH DRESSING/SITE DRY AND INTACT. NO IV MEDICATIONS/FLUIDS RUNNER AT THIS TIME. PATIENT IS ON CCHO 60G NECTAR THICK DIET. NICOLE CATHETER IN PLACE AND URINE IS BERTRAND AND CLEAR. BOWEL MOVEMENT DURING AM SHIFT BUT NONE AT THIS TIME. BED LEFT IN LOW SEMI FOWLERS POSITION, SIDE RAILS UPX2 WITH CALL LIGHT WITHIN REACH. WILL CONTINUE TO MONITOR.
[2018-12-05] MEDS: LEVOFLOXACIN 500 MG/D5W PREMIX 100 ML IV SCH (21:17)
--- NOTE | 2018-12-05 21:25 | NUR ---
PT DESATURATED TO 83% ON 3 L NC. PLACED PT ON BIPAP WITH CHARTED SETTINGS. PT IS TOLERATING WELL. NO DISTRESS OR SOB NOTED. BIPAP CONNECTED TO RED OUTLET. ALARMS AUDIBLE.AMBU BAG AT BEDSIDE. RN AWARE. WILL CONTINUE TO MONITOR.
--- NOTE | 2018-12-05 23:14 | NUR ---
PT ASLEEP. TOLERATING BIPAP WELL. DECREASED FIO2 TO 30%. NO DISTRESS NOTED. WILL CONTINUE TO MONITOR.
[2018-12-06] VITALS (11 sets, daily range): BP systolic 108–147; BP diastolic 50–90
[2018-12-06] MEDS: MIDODRINE 5 MG TAB PO SCH
--- NOTE | 2018-12-06 00:15 | NUR ---
PATIENT ASLEEP AND ON BIPAP AT THIS TIME. WILL CONTINUE TO MONITOR
[2018-12-06] MEDS: methylPREDNISolone SS 40 MG/ML VIAL IVP SCH ×5 (00:27→18:05)
[2018-12-06] MEDS: ALBUTEROL SULFATE/IPRATROPIU 3 ML SOL IH SCH ×4 (00:53→19:00)
[2018-12-06] MEDS: NIFEdipine 10 MG CAPLF PO SCH ×3 (02:09→17:00)
--- NOTE | 2018-12-06 03:14 | NUR ---
PT ASLEEP COMFORTABLY. NO DISTRESS. TOLERATING BIPAP WELL. WILL CONTINUE TO MONITOR.
--- NOTE | 2018-12-06 03:30 | NUR ---
PATIENT ASLEEP AT THIS TIME. ADJUSTED BIPAP MASK ON PATIENT'S FACE DUE TO LEAKING AIR. PROBLEM FIXED NOW. WILL CONTINUE TO MONITOR
--- NOTE | 2018-12-06 05:30 | NUR ---
GAVE PATIENT A DRINK OF THICKENED WATER PER HIS REQUEST. WILL CONTINUE TO MONITOR
[2018-12-06] MEDS: BLOOD GLUCOSE MONITORING 1 DEV DEV FS SCH ×4 (06:58→21:00)
[2018-12-06] MEDS: INSULIN LISPRO SLIDING SCALE 100 UNITS/ML VIAL SUBQ PRN ×4 (07:05→22:38)
--- NOTE | 2018-12-06 07:30 | NUR ---
RECEIVED BEDSIDE REPORT FROM COLLISION TECHNICIAN NURSE, PT IS AAOX4, ABLE TO FOLLOW COMMANDS AND MAKE NEEDS KNOWN, VSS, DENIES PAIN, NO S/S OF DISTRESS, RHONCHI LUNG SOUNDS ENEIDA, ON O2 AT 2 L VIA NC, O2 SAT 94%, USING BIPAP AT NIGHT PER REPORT, DENIES CHEST PAIN, SR ON COMPUTER TECHNOLOGY TEACHER, SOFT ABDOMEN WITH ACTIVE BOWEL SOUNDS, NICOLE CATHETER IN PLACE WITH CLEAR YELLOW URINE VIA GRAVITY, ABLE TO MOVE ALL EXTREMITIES, BLE WEAKNESS NOTED, SKIN IS WARM AND DRY TO TOUCH, OPEN WOUND PRESENT (SEE WOUND ASSESSMENT), IV SITE TO RIGHT AC, PATENT AND SL. EXPLAINED PLAN OF CARE TO PATIENT, PATIENT VERBALIZED UNDERSTANDING, HOB ELEVATED TO 30 DEGREES, SAFETY MEASURE IN PLACE, POSITION CHANGED FOR COMFORT, CALL LIGHT WITHIN REACH, WILL CONTINUE TO MONITOR.
--- NOTE | 2018-12-06 08:10 | NUR ---
PT FINISHED 100% OF BREAKFAST, ABLE TO SWALLOW WELL AT THIS TIME.
[2018-12-06 08:47] LABS: ANION GAP 10.8 (8-16); CARBON DIOXIDE 30.9 mmol/L (21-32); POTASSIUM 4.7 mmol/L (3.5-5.1)
[2018-12-06 08:48] LABS: ALBUMIN 2.7 g/dL (3.4-5.0); CREATININE 1.1 mg/dL (0.7-1.3); TOTAL BILIRUBIN 0.5 mg/dL (0.0-1.0)
[2018-12-06] MEDS: ENOXAPARIN 40 MG/0.4 ML SYR SUBQ SCH (08:51)
--- NOTE | 2018-12-06 09:18 | NUR ---
SCHEDULED MEDICATION GIVEN, PATIENT ABLE TO SWALLOW PILLS WHOLE AND TOLERATED WELL.
[2018-12-06] MEDS: THERAHONEY WOUND DRESSING TP SCH (09:26)
--- NOTE | 2018-12-06 10:00 | NUR ---
PT RESTING IN BED, TALKING TO FAMILY MEMBERS ON THE PHONE, VSS, DENIES PAIN, POSITION CHANGED FOR COMFORT.
[2018-12-06 10:15] LABS: BASOPHILS % (AUTO) 0.4 % (0.0-2.0); EOSINOPHILS # (AUTO) 0.1 K/uL (0-0.4); EOSINOPHILS % (AUTO) 0.8 % (0.0-4.0); HEMATOCRIT 29.5 % (36-52); HEMOGLOBIN 9.1 g/dL (12.0-18.0); LYMPHOCYTES # (AUTO) 0.5 K/uL (2.0-11.5); LYMPHOCYTES % (AUTO) 6.1 % (20.5-51.1); MEAN CORPUSCULAR HEMOGLOBIN 22 pg (27-31); MEAN CORPUSCULAR HGB CONC 31 g/dL (33-37); MEAN CORPUSCULAR VOLUME 70.1 fL (80-94); MONOCYTES # (AUTO) 0.8 K/uL (0.8-1.0); MONOCYTES % (AUTO) 9.3 % (1.7-9.3); NEUTROPHILS # (AUTO) 6.8 K/uL (1.8-7.7); NEUTROPHILS % (AUTO) 83.4 % (42.2-75.2); PLATELET COUNT (AUTO) 210 K/uL (140-450); RED BLOOD CELL COUNT(AUTO) 4.21 MIL/uL (4.20-6.10); RED CELL DISTRIBUTION WIDTH 17.9 % (11.6-13.7); WHITE BLOOD COUNT (AUTO) 8.2 K/uL (4.8-10.8)
--- NOTE | 2018-12-06 10:20 | NUR ---
DR. WALTERS CAME IN TO SEE PATIENT AT BEDSIDE, UPDATED PATIENT CONDITION, OK TO DOWN GRADE PATIENT TO MED/SURG, POSSIBLE D/C HOME TOMORROW.
--- NOTE | 2018-12-06 11:25 | NUR ---
PT TRANSFERRED TO ROOM 107B VIA BED, REPORT GIVEN TO NAILA RN AT BEDSIDE, PT IS IN STABLE CONDITION, VSS, ALL BELONGS GOES WITH PATIENT INCLUDING CANE AND TEETH, NO INCIDENT OCCUR.
--- NOTE | 2018-12-06 11:30 | NUR ---
RECEIVED PT FROM ICU NURSE SANYA. PT IS AWAKE AND ALERT, NO S/S OF ACUTE DISTRESS NOTED. PT IS ON 2 L O2 NC. PT IS A FALL RISK AND USES A CANE TO AMBULATE. LLE STASIS ULCER IS DRESSED WITH THERAHONEY AND WRAPPED WITH GAUZE. LLE IS ALSO NOTED TO HAVE OLD SCARRING, ACCORDING TO PT IT IS DUE TO FLESH-EATING BACTERIA. OTHERWISE SKIN IS INTACT. TWO IV SITES NOTED RUE 20 G, AND R FA 20 G, SALINE LOCKED. ACCORDING TO ICU NURSE PT USES BIPAP AT NIGHT. PT IS ON A PUREED CCHO 60 DIET AND NECTAR THICK LIQUIDS. FALL PRECAUTIONS ARE IN PLACE, CALL LIGHT GIVEN WITHIN REACH. WILL CONTINUE TO MONITOR.
--- NOTE | 2018-12-06 11:45 | NUR ---
PT PROVIDED A BEDSIDE COMMODE AND URINAL. PT WAS CLEANED AND CHANGED, HE ACCIDENTALLY HAD A BM IN BED.
--- NOTE | 2018-12-06 13:01 | NUR ---
CALLED ICU NURSE SANYA TO MAKE SURE PT CAN EAT HIS LUNCH, SINCE HE IS STATING THAT HE ATE BREAKFAST THIS MORNING, AND HAS A PENDING SWALLOW EVAL. SANYA SAID THAT PT CAN EAT LUNCH. PT CURRENTLY EATING AND TOLERATING HIS PUREED CONSISTENCY LUNCH WELL.
--- NOTE | 2018-12-06 14:18 | NUR ---
ASSISTED PT TO THE BEDSIDE COMMODE, PT HAD A LARGE SOFT BM.
--- NOTE | 2018-12-06 14:36 | NUR ---
*S.T. Bedside swallow eval completed* Pt presents w/ adequate oropharyngeal swallow function w/o overt s/s aspiration. Pt able to self-feed without difficulty. Pt has loose-fitting U/L dentures and needs denture adhesive. He reported that he is unable to make outgoing calls to family members to request that they bring adhesive in. Recommend: 1) Advance to regular diet, thin liquids okay. Straws okay. 2) P.O. meds okay whole, one at a time. 3) Nsg to assist w/ tray set up to promote self-feeding 4) Nsg to call family to request denture adhesive. Pt is functioning at reported baseline. No further tx indicated at this time. DC to nsg care. Endorsed to JULIANNA Lubin. Please also note that on 12/05/18, JULIANNA Quiros charted in note that "bedside swallow eval was completed." However, what was performed was a nursing bedside swallow screening. Clarification was made with RN/Director Jo. Time [id number]
--- NOTE | 2018-12-06 16:04 | NUR ---
PT VISITING WITH HIS BROTHER AND GRANDDAUGHTER AT THIS TIME. NO S/S OF ANY DISTRESS. BLOOD GLUCOSE IS 289, WILL NEED INSULIN COVERAGE BEFORE DINNER.
--- NOTE | 2018-12-06 17:55 | NUR ---
PAGED DR GREEN REGARDING WHETHER PT SHOULD TAKE THE ORDERED NIFEDIPINE, SINCE PT'S LATEST BP IS 130/50. ACCORDING TO THE PHARMACIST, THIS MEDICATION CAN CAUSE A RAPID DECREASE IN BP. DR GREEN SAID TO HOLD THE NIFEDIPINE.
--- NOTE | 2018-12-06 19:18 | NUR ---
PT ENDORSED TO DRILLING RIG OPERATOR NURSE IN STABLE CONDITION.
--- NOTE | 2018-12-06 19:18 | NUR ---
RECIEVED PT AAOX4 , WITH SLIGHTLY LABORED BREATHING - O2 SAT -95 % TO 96% , ON O2 2LPM/NC , IV SITES INTACT AND PATENT , WITH LEFT STASIS ULCER AND OLD SCARS ON THE LEFT LEG , PLAN OF CARE DISCUSSED AND VERBALIZED UNDERSTANDING , ON SAFETY/ FALL PRECAUTION PROTOCOL - CALL LIGHT WITH INREACH , USES URINAL , BEDSIDE COMMODE STANDBY ON BEDSIDE , WILL CONT. TO MONITOR.
--- NOTE | 2018-12-06 20:38 | NUR ---
PATIENT REFUSED HHN TX. REPORTS NO SOB OR DISTRESS. ALSO REFUSED BIPAP, STATING IT PREVENTS HIM FROM SLEEPING. RN AWARE. ENCOURAGED PT TO CALL IF HE FEELS ANY SOB OR REQUESTS BIPAP. WILL CONTINUE TO MONITOR.
--- NOTE | 2018-12-06 22:00 | NUR ---
O2 SAT 95% - NO COMPLAIN MADE AT THIS TIME , CALL LIGHT WITHIN REACH.
[2018-12-06] MEDS: LEVOFLOXACIN 500 MG/D5W PREMIX 100 ML IV SCH (22:27)
--- NOTE | 2018-12-07 | NUR ---
MADE ROUNDS , O2 SAT 95% - NO COMPLAIN MADE AT THIS TIME, CALL LIGHT WITHIN REACH.
[2018-12-07] MEDS: ALBUTEROL SULFATE/IPRATROPIU 3 ML SOL IH SCH ×4 (00:39→19:26)
[2018-12-07] MEDS: NIFEdipine 10 MG CAPLF PO SCH ×3 (01:00→18:18)
--- NOTE | 2018-12-07 02:00 | NUR ---
O2 SAT 955 , NO COMPLAIN MADE AT THIS TIME , CALL LIGHT WITHIN REACH.
[2018-12-07] MEDS: methylPREDNISolone SS 40 MG/ML VIAL IVP SCH ×4 (02:49→18:18)
[2018-12-07 04:00] VITALS: BP 130/80
[2018-12-07] MEDS: BLOOD GLUCOSE MONITORING 1 DEV DEV FS SCH ×3 (06:45→16:26)
--- NOTE | 2018-12-07 06:46 | NUR ---
PT REFUSED BREATHING TX NO SIGNS OF DISTRESS NOTED AT THIS TIME
[2018-12-07] MEDS: INSULIN LISPRO SLIDING SCALE 100 UNITS/ML VIAL SUBQ PRN ×3 (06:48→18:20)
--- NOTE | 2018-12-07 07:10 | NUR ---
PT RECEIVED FROM NIGHT RNZINA. PT IN BED. AAOX4. IV SALINE LOCK TO RUE. PULSE OX READS 94% ON ROOM AIR. BREATHING EVEN AND UNLABORED. WILL CONTINUE TO ASSESS FOR CHANGES IN CONDITION.
--- NOTE | 2018-12-07 08:15 | NUR ---
PT 2L NC REMOVED TO ASSESS O2 SAT ON ROOM AIR. O2 SAT WAS 94% ON 2L NC THEN DROPPED TO 84-86% ON ROOM AIR. BREATHING WAS EVEN AND UNLABORED WITH INTERMITTENT COUGHING. SUPPLEMENTAL O2 WAS REAPPLIED AND O2 SAT RETURNED TO 95% ON 2L NC.
[2018-12-07] MEDS ORDERED: PRED20TA5 PO (08:20)
[2018-12-07] MEDS: ENOXAPARIN 40 MG/0.4 ML SYR SUBQ SCH (08:46)
--- NOTE | 2018-12-07 09:00 | NUR ---
Sewage Screen Operator Note: I faxed MD's order for home O2, face sheet, 's consultation, and History of Present Illness to [facility].
--- NOTE | 2018-12-07 09:04 | NUR ---
Magazine Hand Note: I faxed 's home O2 order to [facility] (contracted with [facility]), fax , phone number ([place]) , office .
[2018-12-07 09:42] LABS: BASOPHILS # (AUTO) 0.1 K/uL (0.00-0.22); BASOPHILS % (AUTO) 0.8 % (0.0-2.0); EOSINOPHILS # (AUTO) 0.1 K/uL (0-0.4); EOSINOPHILS % (AUTO) 0.7 % (0.0-4.0); HEMATOCRIT 30.7 % (36-52); HEMOGLOBIN 9.4 g/dL (12.0-18.0); LYMPHOCYTES # (AUTO) 0.4 K/uL (2.0-11.5); LYMPHOCYTES % (AUTO) 4.4 % (20.5-51.1); MEAN CORPUSCULAR HEMOGLOBIN 22 pg (27-31); MEAN CORPUSCULAR HGB CONC 31 g/dL (33-37); MEAN CORPUSCULAR VOLUME 70.5 fL (80-94); MONOCYTES # (AUTO) 0.5 K/uL (0.8-1.0); MONOCYTES % (AUTO) 5.7 % (1.7-9.3); NEUTROPHILS # (AUTO) 7.5 K/uL (1.8-7.7); NEUTROPHILS % (AUTO) 88.4 % (42.2-75.2); PLATELET COUNT (AUTO) 209 K/uL (140-450); RED BLOOD CELL COUNT(AUTO) 4.35 MIL/uL (4.20-6.10); RED CELL DISTRIBUTION WIDTH 17.5 % (11.6-13.7); WHITE BLOOD COUNT (AUTO) 8.5 K/uL (4.8-10.8)
[2018-12-07 10:24] LABS: ALBUMIN 2.9 g/dL (3.4-5.0); ANION GAP 9.5 (8-16); CARBON DIOXIDE 31.1 mmol/L (21-32); CREATININE 0.9 mg/dL (0.7-1.3); POTASSIUM 4.6 mmol/L (3.5-5.1); TOTAL BILIRUBIN 0.5 mg/dL (0.0-1.0)
--- NOTE | 2018-12-07 10:30 | NUR ---
CONSULTED WITH CHARGE NURSE, HAL, ABOUT CONFIRMING WITH DR. GREEN THAT HE STILL WANTED PT ASSESSMENT OF O2 BEFORE AND AFTER AMBULATION BECAUSR O2 SAT AT 84% ON ROOM AIR WHEN LAYING IN BED. CHARGE NURSE STATED MD IS AWARE AND PT ASSESSMENT IS COMPLETE. PT ASSESSMENT NOTES VERIFIED. WILL WAIT FOR HOME O2 CONFIRMATION FOR DISCHARGE.
--- NOTE | 2018-12-07 10:37 | NUR ---
had pt off o2 for resting [id number] and o2 sat was 84% on room air placed pt back on o2 at 2lnc and informed mayra prince with results she will call dr. machado with results to see if dr. machado still wants pt to walk for o2 saturation
[2018-12-07 12:00] VITALS: BP 137/69
--- NOTE | 2018-12-07 12:09 | NUR ---
Churn Tender Note: Per Shabbir from [facility] (contracted with [facility]), fax , , he is not early interventionist on weekends, he referred me to call , I called and spoke with Charo from dispatch dept, she stated someone from early interventionist dept will contact me regarding home O2 referral. I provided Charo with my contact information. Per Migratory Game Bird Biologist Maria Guadalupe from [facility] , home health referral should be faxed to [facility] and home O2 referral to [facility]. I faxed Maria Guadalupe home health order and physical therapy notes. I also faxed inquiry to [facility], phone number .
--- NOTE | 2018-12-07 13:00 | NUR ---
ADMINISTERED ORDERED MEDICATIONS. PT IN BED. PT TOLERATED MEDICATION ADMINISTRATION. NO SIGNS OF ACUTE DISTRESS AT THIS TIME. WILL CONTINUE TO ASSESS FOR CHANGES IN CONDITION.
--- NOTE | 2018-12-07 13:28 | NUR ---
PT REFUSED BREATHING TX NO SIGNS OF DISTRESS NOTED PT WILL CALL IF HE NEEDS TX.
--- NOTE | 2018-12-07 14:02 | NUR ---
PT SITTING AT BEDSIDE. STATED HE WAS TIRED OF LAYING DOWN. BED ALARM ON. PT EDUCATED ABOUT CALLING FOR ANY ASSISTANCE. WILL CONTINUE TO MONITOR FOR CHANGES IN CONDITION.
--- NOTE | 2018-12-07 14:39 | NUR ---
Folding Machine Tender Note: I called [facility] again (contracted with [facility]) and spoke with Shyla from dispatch dept, I explained to her I called earlier and was told someone from their company would contact me regarding home O2 but no one did. I also told her that home O2 referral was faxed around 9am today and plan is to discharge patient today. Per Shyla, she will notify their intermediate manager of this and relay message to call me soon.
--- NOTE | 2018-12-07 15:08 | NUR ---
Tap Out Operator Note: Per Front End Ui Developer Maria Guadalupe from [facility] , authorization for [facility] is [id number] and authorization for [facility] is [id number]. I received a call from Martinez from [facility] (contracted with [facility]) , he stated portable O2 tank will be delivered to hospital before 6pm today. I provided Martinez with authorization from [facility].
--- NOTE | 2018-12-07 16:25 | NUR ---
Lead Ruby On Rails Developer Note: Per Anca from [facility], phone number / , they will send a nurse to patient's home on Sunday12/09/18. I provided Anca with [facility] authorization.
--- NOTE | 2018-12-07 18:22 | NUR ---
OXYGEN DELIVERY AT BEDSIDE.
--- NOTE | 2018-12-07 18:45 | NUR ---
DC INSTRUCTION AND RX GIVEN AND EXPLAINED TO PT, PT GIVEN APPOINTMENT SLIP FOR SUNDAY WITH Noreen FRY. PT TO CALL AGRICULTURAL CONSULTANT FOR APPOINTMENT IN 3-4 WEEKS, PT PROVIDED WITH PHONE NUMBER FOR [facility]. PT INFO GIVEN, PT VERBALIZED FULL UNDERSTANDING. OLIVE GRADER TO ASSIST PATIENT CHANGING CLOTHES.
--- NOTE | 2018-12-07 19:00 | NUR ---
PT ENDORSED TO NIGHT NURSE. PT IN BED. AAOX4. NO SIGNS OF ACUTE DISTRESS.
--- NOTE | 2018-12-07 19:35 | NUR ---
RECIEVED PT - ENDORSED BY CHARGE NURSE FABIAN - PT FOR DISCHARGE TODAY - WITH DISCHARGE ORDER , PT AAOX4 , NID - O2 SAT 95% , STILL WITH SALINE LOCK ON RIGHT UPPER ARM - INTACT AND PATENT . - PT IS JUST WAITING FOR A RIDE - REMIND PT THE SALINE LAOCK WILLBE REMOVED ONCE HE IS ABOUT TO READY TO LEAVE . CALL LIGHT WITHIN REACH .PT REQUESTING PARTIAL SPONGE BATH -LILIA INFORMED. Addendum: 12/07/18 at 2323 by Milagros Nice RN IV CANULLA REMOVED - NEEDLE INTACT - MINIMAL BLEEDING. Addendum: 12/07/18 at 2324 by Milagros Nice RN IV CANNULA REMOVED - NEEDLE INTACT - MIN. BLEEDING
--- NOTE | 2018-12-07 21:20 | NUR ---
DISCHARGED WITH STABLE CONDITION ACCOMPANY WITH NEPHEW.
== END 2018-12-07 21:20 | disposition home health service (06) | DRG 208 ==
LOC: MED 15:52 → MTU 18:13 → MIC 12-03 03:12 → OBSVTOIN 12-03 10:21 → MTU 12-06 11:05
PROVIDERS: ADMIT Internal Medicine; ATTEND Internal Medicine
PROC: 5A1945Z Respiratory Ventilation, 24-96 Consecutive Hours (ICD-10-PCS; principal; 2018-12-03)
PROC: 0BH17EZ Insertion of Endotracheal Airway into Trachea, Via Natural or Artificial Opening (ICD-10-PCS; 2018-12-03)
PROC: 5A09357 Assistance with Respiratory Ventilation, Less than 24 Consecutive Hours, Continuous Positive Airway Pressure (ICD-10-PCS; 2018-12-05)
DX: J69.0 Pneumonitis due to inhalation of food and vomit (principal); J96.21 Acute and chronic respiratory failure with hypoxia; J96.22 Acute and chronic respiratory failure with hypercapnia; J44.1 Chronic obstructive pulmonary disease with (acute) exacerbation; G93.40 Encephalopathy, unspecified; J44.0 Chronic obstructive pulmonary disease with (acute) lower respiratory infection; N17.9 Acute kidney failure, unspecified; Z68.37 Body mass index [BMI] 37.0-37.9, adult; F17.200 Nicotine dependence, unspecified, uncomplicated; F17.210 Nicotine dependence, cigarettes, uncomplicated; E66.01 Morbid (severe) obesity due to excess calories; N18.9 Chronic kidney disease, unspecified; I12.9 Hypertensive chronic kidney disease with stage 1 through stage 4 chronic kidney disease, or unspecified chronic kidney disease; E11.22 Type 2 diabetes mellitus with diabetic chronic kidney disease; I95.9 Hypotension, unspecified; D64.9 Anemia, unspecified; G47.33 Obstructive sleep apnea (adult) (pediatric)
CPT/HCPCS: 96374; 99291; G0378; 36415; 36600; 71045; 71260; 76770; 80053; 81003; 82803; 82948; 83605; 83690; 83880; 85025; 85610; 85730; 87040; 87070; 87081; 87086; 87205; 92610; 93005; 94002; 94003; 94640; 94660; 97116; 97161-GP; 97530; J0330; J1650; J1940; J1956; J2060; J2704; J2920; J2930; J3010; J3370; J3490; J7030; J7060; J7613; J7620; J7644; Q0092; Q9967

== ENCOUNTER 2019-01-13 16:11 | Inpatient (IN) | payer OTHER ==
[~2019-01-13] VITALS: Ht 177.8 cm; Wt 91.6 kg
[~2019-01-13 16:11] MED LIST: PRED20TA5 PO
[2019-01-13 16:17] VITALS: BP 127/57
--- NOTE | 2019-01-13 16:17 | NUR ---
PT BIBA C/O SOB, SYNCOPE AND GEN WEAKNESS X 3 DAYS. PT IS ON 3.5L NC, LUNG SOUNDS CLEAR THORUGHOUT. +1 PTTING EDEMA BLE. NO RESP DISTRESS NOTED. VSS. A &O X4. ATIENT POSITIONED FOR COMFORT; HOB ELEVATED; BEDRAILS UP X2; BED DOWN. ER MD MADE AWARE OF PT STATUS. NKA. PMH: ASTHMA, COPD, DM.
--- NOTE | 2019-01-13 16:25 | NUR ---
PT ON 4 L NC
[2019-01-13] MEDS ORDERED: INSULIN REGULAR, HUMAN 100 UNIT/ML VIAL SUBQ ONE (17:10)
[2019-01-13] MEDS ORDERED: NACL 0.9% 500 ML IV ONE (17:10)
[2019-01-13 17:54] LABS: HEMATOCRIT 32.8 % (36-52); HEMOGLOBIN 9.8 g/dL (12.0-18.0); MEAN CORPUSCULAR HEMOGLOBIN 20 pg (27-31); MEAN CORPUSCULAR HGB CONC 30 g/dL (33-37); MEAN CORPUSCULAR VOLUME 67.6 fL (80-94); PLATELET COUNT (AUTO) 228 K/uL (140-450); RED BLOOD CELL COUNT(AUTO) 4.85 MIL/uL (4.20-6.10); RED CELL DISTRIBUTION WIDTH 18.7 % (11.6-13.7); WHITE BLOOD COUNT (AUTO) 20.4 K/uL (4.8-10.8)
--- NOTE | 2019-01-13 18:12 | NUR ---
RADIOLGOLY AT BEDSIDE TO TRANFERR PT TO GET CT ASCAN VIA GURNEY.
[2019-01-13] MEDS ORDERED: NACL 0.9% 2,000 ML IV ONE (18:15)
[2019-01-13] MEDS ORDERED: ALBUTEROL SULFATE/IPRATROPIU 3 ML SOL IH ONE (18:15)
[2019-01-13] MEDS ORDERED: VANCOMYCIN 1,000 MG in DEXTROSE 5% 250 ML IV ONE (18:15)
[2019-01-13] MEDS ORDERED: PIPERACILLIN/TAZOBACTAM 3.375 GM in DEXTROSE 5% 50 ML IV ONE (18:15)
[2019-01-13] MEDS ORDERED: VANCOMYCIN 1,000 MG VIAL ONE (18:32)
[2019-01-13] MEDS ORDERED: PIPERACILLIN/TAZOBACTAM 3.375 GM VIAL IV ONE (18:32)
[2019-01-13 18:51] LABS: ANION GAP 15.1 (8-16); CARBON DIOXIDE 28.5 mmol/L (21-32); POTASSIUM 3.6 mmol/L (3.5-5.1)
[2019-01-13 18:53] LABS: TOTAL BILIRUBIN 0.8 mg/dL (0.0-1.0)
--- NOTE | 2019-01-13 18:53 | NUR ---
PT RETURNED BACK FROM CT.
[2019-01-13 18:54] LABS: ALBUMIN 2.4 g/dL (3.4-5.0)
--- NOTE | 2019-01-13 19:02 | NUR ---
RT AT BEDSIDE.
[2019-01-13 19:06] LABS: LYMPHOCYTES % (MANUAL) 2 % (20-46); MONOCYTES % (MANUAL) 4 % (5-12)
[2019-01-13 19:09] LABS: APPEARANCE,URINE CLOUDY (CLEAR); BILIRUBIN,URINE 1+ (NEGATIVE); BLOOD, URINE 3+ (NEGATIVE); COLOR,URINE YELLOW (YELLOW); LEUKOCYTE ESTERASE ,URINE 2+ (NEGATIVE); NITRITE, URINE NEGATIVE (NEGATIVE); PH,URINE 5.5 (5.0-9.0); UGLUCOSE NEGATIVE (NEGATIVE)
[2019-01-13 19:10] LABS: PROTHROMBIN TIME 9.8 secs (10.8-13.4)
[2019-01-13 19:18] LABS: BARBITURATE, URINE NEGATIVE ng/ml (NEG <=200); BENZODIAZEPINE, URINE NEGATIVE ng/mL (NEG <=200); CANNABINOID, URINE POSITIVE ng/mL (NEG <=50); COCAINE, URINE NEGATIVE ng/mL (NEG <=300); OPIATE, URINE NEGATIVE ng/mL (NEG <=2000); PHENCYCLIDINE SCREEN,URINE NEGATIVE ng/mL (NEG <=25)
[2019-01-13] MEDS: NACL 0.9% 1,000 ML IV SCH (19:25)
[2019-01-13] MEDS ORDERED: DEXTROSE 50% 50 ML SYR IVP PRN (19:25)
[2019-01-13] MEDS ORDERED: ONDANSETRON 4 MG/2 ML VIAL IVP PRN (19:25)
--- NOTE | 2019-01-13 19:27 | NUR ---
Pt report given to BHARAT LEVINE. Transfer of care at this time.
--- NOTE | 2019-01-13 19:29 | NUR ---
Pt report given to JULIANNA NICHOLSON. Transfer of care at this time.
[2019-01-13 19:33] LABS: WBC,URINE 20-60 /HPF (0-5); YEAST,URINE None Seen /HPF (None Seen)
--- NOTE | 2019-01-13 20:24 | NUR ---
ENDORSED TO NIGHTSHIFT JULIANNA CACERES OF NS BOLUS AND VANCO STILL INFUSING AT TIME OF TRANSFER TO TELE FLOOR. ALL LINES AND MEDS LABELED. PT STABLE. NADR
--- NOTE | 2019-01-13 20:25 | NUR ---
Patient will be admitted to care of GISELA WALTERS Admited to TELE. Will go to room 107A. Belongings list completed. Report to NICKI.
[2019-01-13 20:45] VITALS: BP 140/94
--- NOTE | 2019-01-13 20:45 | NUR ---
RECIEVED PT. AAOX3 , CAN OBEY SIMPLE COMMANDS , BUT POOR HISTORIAN - HAD EPISODE OF SYNCOPE PROIR TO ADMISSION , ON LABORED BREATHING - O2 SAT 91% WITH NASAL FLARRING , ON O2 AT 2LPM/NC , PER TUYET FROM ER , IV SITE INTACT AND PATENT , SKIN INTACT ALTHOUGHT THERE IS OLD SCARS ON THE RIGHT LOWER LEG , TRANSFER TO BED BY 4 PERSONS MANUAL LIFT , ADMISSION ASSESSMENT DONE - MRSA SPECIMEN COLLECTED AND SENT TO LAB. FALL RISK - ON SAFETY / FALL PRECAUTION PROTOCOL - BED ALARM ON . PLAN OF CARE DISCUSSED BUT ONLY FAIR UNDERSTANDING , HE NODS HIS HEAD HIS RESPONSE TO QUESTION AND DISCUSSION BUT NOT SAYING YES OR NO . ON CLOSELY WATCH .
[2019-01-13] MEDS: BLOOD GLUCOSE MONITORING 1 DEV DEV FS SCH (21:00)
--- NOTE | 2019-01-13 22:00 | NUR ---
VOIDED FREELY , ALTHOUGH PT REQUESTING URINAL BUT HE CAN ABLE TO HOLD STILL THE URINAL DUE TO SEV. GEN. WEAKNESS - PUT ON DIAPER TEMP. STILL ON LABORED BREATHING O2 SAT 93% - WILL CONT. TO MNIOTOR - CALL LIGHT WITH IN REACH.
[2019-01-13] MEDS: INSULIN LISPRO SLIDING SCALE 100 UNITS/ML VIAL SUBQ PRN (22:40)
[2019-01-13] MEDS: ACETAMINOPHEN 325 MG TAB PO PRN (22:50)
--- NOTE | 2019-01-13 22:50 | NUR ---
TYLENOL /TAB GIVEN ORDERED - TEMP 100.4 F - WILL CONT. TO MONITOR.
[2019-01-14] VITALS: BP 140/93
[2019-01-14] MEDS: IPRATROPIUM 0.02% 0.5 MG/2.5 ML NEBU INH SCH ×4 (01:20→18:55)
[2019-01-14] MEDS: ALBUTEROL 0.083% 2.5 MG/3 ML NEBU INH PRN (01:20)
--- NOTE | 2019-01-14 02:00 | NUR ---
MADE ROUNDS , SLEEPING ,STILL LABORED BREATHING BUT O2 SAT IS WNL .96%
[2019-01-14] MEDS ORDERED: PIPERACILLIN/TAZOBACTAM 2.25 GM VIAL IV ONE (03:58)
[2019-01-14 04:00] VITALS: BP 140/93
--- NOTE | 2019-01-14 04:00 | NUR ---
O2 SAT 98% , NO COMPLAIN MADE AT THIS TIME -WILL CONT. TO MONITOR.
[2019-01-14] MEDS: PIPERACILLIN/TAZOBACTAM 2.25 GM in DEXTROSE 5% 50 ML IV SCH ×3 (04:08→20:50)
[2019-01-14] MEDS: HYDROcodone/APAP 5/325 MG 1 TAB TAB PO PRN (06:24)
--- NOTE | 2019-01-14 06:24 | NUR ---
C/O ABDOMINAL PAIN - NARCO /TAB GIVEN ORDERED,WILL CONT. TO MONITOR,
[2019-01-14 06:31] LABS: HEMATOCRIT 32.4 % (36-52); HEMOGLOBIN 9.7 g/dL (12.0-18.0); MEAN CORPUSCULAR HEMOGLOBIN 20 pg (27-31); MEAN CORPUSCULAR HGB CONC 30 g/dL (33-37); MEAN CORPUSCULAR VOLUME 67.6 fL (80-94); PLATELET COUNT (AUTO) 198 K/uL (140-450); RED CELL DISTRIBUTION WIDTH 19.4 % (11.6-13.7); WHITE BLOOD COUNT (AUTO) 21.9 K/uL (4.8-10.8)
[2019-01-14] MEDS: INSULIN LISPRO SLIDING SCALE 100 UNITS/ML VIAL SUBQ PRN ×4 (06:47→20:48)
--- NOTE | 2019-01-14 07:30 | NUR ---
ENDORSED TO AM SHIFT FOR CONT. OF CARE WITH LATEST O2 SAT 97%
--- NOTE | 2019-01-14 07:32 | NUR ---
RECEIVED REPORT FROM NIGHT RN. PT RESTING IN BED. AAOX4. NO S/S OF ACUTE DISTRESS. ON O2 2L NC. PT DENIES PAIN. IV SITE PATENT AND INTACT. CALL LIGHT WITHIN REACH. SAFETY MEASURES ENSURED. WILL CONTINUE TO MONITOR.
[2019-01-14] MEDS: BLOOD GLUCOSE MONITORING 1 DEV DEV FS SCH ×4 (07:44→20:55)
[2019-01-14 08:00] VITALS: BP 140/81
--- NOTE | 2019-01-14 08:25 | NUR ---
PATIENT HAS BEEN SCREENED AND CATEGORIZED HIGH NUTRITION RISK. PATIENT WILL BE SEEN WITHIN 1-2 DAYS OF ADMISSION. 01/14/19-01/15/[address]
[2019-01-14 09:05] LABS: LYMPHOCYTES % (MANUAL) 4 % (20-46); MONOCYTES % (MANUAL) 10 % (5-12)
[2019-01-14] MEDS: NACL 0.9% 1,000 ML IV SCH (09:23)
[2019-01-14] MEDS: ENOXAPARIN 30 MG/0.3 ML SYR SUBQ SCH (09:23)
[2019-01-14 10:14] LABS: ANION GAP 18.6 (8-16); CARBON DIOXIDE 23.9 mmol/L (21-32); POTASSIUM 3.5 mmol/L (3.5-5.1)
[2019-01-14 11:57] VITALS: BP 158/87
--- NOTE | 2019-01-14 11:59 | NUR ---
PT RESTING IN BED. NO S/S OF ACUTE DISTRESS. PT DENIES PAIN. IV SITE PATENT AND INTACT. CALL LIGHT WITHIN REACH. SAFETY MEASURE ENSURED. WILL CONTINUE TO MONITOR.
[2019-01-14] MEDS ORDERED: MAG SULF 2000 MG/WATER PREMIX 50 ML IV SCH (12:00)
[2019-01-14] MEDS ORDERED: TAMSULOSIN 0.4 MG CAP PO SCH (12:00)
--- NOTE | 2019-01-14 13:42 | NUR ---
PATIENT REFUSED NICOLE. DR. GROVES AWARE. CONDOM CATHETER USED.
[2019-01-14 16:00] VITALS: BP 148/93
--- NOTE | 2019-01-14 16:40 | NUR ---
PT SLEEPING IN BED. NO S/S OF ACUTE DISTRESS. CALL LIGHT WITHIN REACH. SAFETY MEASURES ENSURED. WILL CONTINUE TO MONITOR.
[2019-01-14] MEDS ORDERED: FUROSEMIDE 40 MG/4 ML VIAL IVP SCH (18:00)
--- NOTE | 2019-01-14 18:00 | NUR ---
SPOKE TO DR. WALTERS REGARDING PATIENT'S CONFUSION, SOB, AND LABORED BREATHING. EXPLAINED PATIENT HAS ONLY HAD 450 OUTPUT DESPITE BEING ON FLUIDS AT 75, PT'S LUNG SOUNDS DIMINISHED WITH RHONCHI. MD ORDERS PUT IN. PT'S BUN AND CREAT LEVELS REPORTED TO MD IN REGARDS TO LASIX. RECOMMENDED LACTIC ACID REPEAT. PER MD NOT NECESSARY AT THIS TIME.
--- NOTE | 2019-01-14 19:30 | NUR ---
PATIENT IS LAYING IN BED AWAKE WITH SON OXANA AT BEDSIDE. PT IS AAOX2 PERSON AND PLACE. CHANGE CONDITION NOTED TODAY PT WAS AAOX4 IN AM PER RN MD IS AWARE. PT IS ON NC 3L O2 SAT 100%. LUNG SOUNDS SOUND DIMINISHED. SKIN INTACT. SOME SWELLING NOTED ON LOWER EXTREMITIES. PT WITH NICOLE CATH DRAINING CLOUDY YELLOW URINE. PT IS ST. MD AWARE WELL. PT ON BREATHING TREATMENTS. BLOOD SUGAR HAS BEEN ELEVATED LATEST PER RN 426. IV ON L HAND 24G TKO. POC DISCUSSED WITH PT. WILL ROUND FREQUENTLY.
[2019-01-14 20:00] VITALS: BP 147/72
[2019-01-14] MEDS: ACETAMINOPHEN 325 MG TAB PO PRN (20:50)
--- NOTE | 2019-01-14 20:50 | NUR ---
VITAL SIGNS: 147/72 HR 106 100% 3L, 26 99.6 DENIES PAIN. ON COOLING MEASURES AND GAVE TYLENOL. BLOOD SUGAR 356 GAVE INSULIN PER ORDERS. WILL CONTINUE TO MONITOR.
--- NOTE | 2019-01-14 21:00 | NUR ---
DR ENGEL IN TO SEE PT. EXPLAINED TO PT IS RR HIGH ON NC HX COPD PT HAD CHANGE IN ALOC TODAY AND MD WALTERS IS AWARE. DR AGREEABLE TO ORDER LACTIC ACID AND NO CHANGE ON ANTIBIOTIC. WILL CONTINUE TO MONITOR.
--- NOTE | 2019-01-14 22:00 | NUR ---
TEMP DOWN 98.2. SITTING UP GAVE WATER PER REQUEST. SAFETY MEASURES ARE IN PLACE. WILL CONTINUE TO MONITOR.
[2019-01-15] VITALS (8 sets, daily range): BP systolic 138–184; BP diastolic 70–98
--- NOTE | 2019-01-15 | NUR ---
PT VITAL SIGNS RR REMAIN IN 26 SAT 90% ON NC 3L O2. HOB ELEVATED. SAFETY MEASURES ARE IN PLACE. WILL CONTINUE TO MONITOR.
[2019-01-15] MEDS: HYDROcodone/APAP 5/325 MG 1 TAB TAB PO PRN ×2 (01:44→11:42)
--- NOTE | 2019-01-15 02:14 | NUR ---
PATIENT IS SLEEPING COMFORTABLY IN BED. NO DISTRESS NOTED. CALL LIGHT IS WITHIN REACH. BED ALARM ON.
--- NOTE | 2019-01-15 03:20 | NUR ---
RECEIVED CALL FROM LAB PTS BLOOD CULTURE POSITIVE FOR NEGATIVE RODS. ALREADY MADE AWARE THIS AM BY CHARGE NURSE ELIZABETH.
--- NOTE | 2019-01-15 04:20 | NUR ---
VITAL SIGNS ARE WITHIN NORMAL LIMITS. CHANGED AND CLEANED PT. PT TRYING TO GET OUT OF BED. REORIENTED PT TO ROOM AND STAFF WILL CONTINUE TO MONITOR.
[2019-01-15] MEDS: PIPERACILLIN/TAZOBACTAM 2.25 GM in DEXTROSE 5% 50 ML IV SCH ×3 (05:18→20:40)
[2019-01-15 06:16] LABS: HEMATOCRIT 31.2 % (36-52); HEMOGLOBIN 9.5 g/dL (12.0-18.0); MEAN CORPUSCULAR HEMOGLOBIN 20 pg (27-31); MEAN CORPUSCULAR HGB CONC 30 g/dL (33-37); MEAN CORPUSCULAR VOLUME 66.8 fL (80-94); PLATELET COUNT (AUTO) 219 K/uL (140-450); RED BLOOD CELL COUNT(AUTO) 4.68 MIL/uL (4.20-6.10); RED CELL DISTRIBUTION WIDTH 19.2 % (11.6-13.7)
[2019-01-15] MEDS: INSULIN LISPRO SLIDING SCALE 100 UNITS/ML VIAL SUBQ PRN ×4 (06:16→20:38)
[2019-01-15] MEDS: BLOOD GLUCOSE MONITORING 1 DEV DEV FS SCH ×4 (06:16→20:41)
--- NOTE | 2019-01-15 06:16 | NUR ---
PT IS SITTING UP IN BED WATCHING TV NO S/S OF DISTRESS. BLOOD SUGAR 278 GAVE INSULIN PER SLIDING SCALE. WILL CONTINUE TO MONITOR.
[2019-01-15 06:41] LABS: ALBUMIN 1.9 g/dL (3.4-5.0); ANION GAP 15.9 (8-16); CARBON DIOXIDE 27.3 mmol/L (21-32); CREATININE 3.8 mg/dL (0.7-1.3); POTASSIUM 3.2 mmol/L (3.5-5.1); TOTAL BILIRUBIN 0.7 mg/dL (0.0-1.0)
[2019-01-15 06:42] LABS: PHOSPHORUS 2.7 mg/dL (2.5-4.9)
[2019-01-15] MEDS: IPRATROPIUM 0.02% 0.5 MG/2.5 ML NEBU INH SCH ×3 (07:08→20:05)
--- NOTE | 2019-01-15 07:18 | NUR ---
GAVE BEDSIDE REPORT TO DAY RN. PT ENDORSED IN STABLE CONDITION.
--- NOTE | 2019-01-15 07:25 | NUR ---
Received report from hotel night auditor nurse. Pt sleeping in bed. No signs of distress noted. No C/O pain. Call light in reach. [id number]
--- NOTE | 2019-01-15 08:10 | NUR ---
Noted left hand IV pulled out. IV cath lying in bed, intact, site with scant bleeding, covered with gauze and tape. Pt states "I don't know why it came off."
[2019-01-15 08:36] LABS: EOSINOPHILS % (MANUAL) 1 % (0-4); LYMPHOCYTES % (MANUAL) 10 % (20-46); MONOCYTES % (MANUAL) 7 % (5-12)
[2019-01-15] MEDS: TAMSULOSIN 0.4 MG CAP PO SCH (09:14)
[2019-01-15] MEDS: ENOXAPARIN 30 MG/0.3 ML SYR SUBQ SCH (09:20)
[2019-01-15] MEDS: ACETAMINOPHEN 325 MG TAB PO PRN (10:13)
[2019-01-15] MEDS ORDERED: CALCIUM CARBONATE 500 MG TAB.CHEW PO PRN (11:45)
--- NOTE | 2019-01-15 12:30 | NUR ---
Spoke to Dr Carmona on the phone, notified of elevated BP & low potassium level. New orders received, noted & carried out. Pt currently resting in bed, no signs of distress. Call light within reach.
[2019-01-15] MEDS ORDERED: POTASSIUM CHLORIDE 10 MEQ TABER PO SCH (12:55)
[2019-01-15] MEDS ORDERED: METOPROLOL SUCCINATE 50 MG TABER PO SCH (13:05)
--- NOTE | 2019-01-15 13:20 | NUR ---
01/15/19 RD INITIAL ASSESSMENT COMPLETED PLEASE REFER TO NUTRITION ASSESSMENT UNDER CARE ACTIVITY FOR ESTIMATED NUTRITIONAL NEEDS. 1. CONTINUE CCHO 60GM DIET TOLERATED 2. ENCOURAGE INCREASING PO INTAKE 3. RD TO FOLLOW-UP 3-5 DAYS, MODERATE RISK JAY HIGHTOWER, RD
--- NOTE | 2019-01-15 14:30 | NUR ---
Pt attempting to get out of bed, stating he needs pee. Shaver cath intact & draining clear yellow urine. Explained pt has shaver cath, verbalized understanding & went back to bed with min assist. Bed alarm on. Call light within reach.
--- NOTE | 2019-01-15 19:30 | NUR ---
Report given to pm shift nurse. Pt resting in bed, no signs of distress.
--- NOTE | 2019-01-15 19:31 | NUR ---
PATIENT IS ATTEMPTING TO GET OUT OF BED. STATES, "WHERE ARE MY BOOTS I NEED TO ENGINEER BOOSTER AND EXHAUSTER MY BROTHER." PT IS AAOX1 PERSON. ORIENTED PT TO ROOM AND STAFF. REMAINS CONFUSED. POSITION HIM BACK IN BED WITH ASSIST OF ANOTHER RN. PT IS ON NC 3L O2. LUNG SOUNDS SOUND DIMINISHED. SKIN INTACT. SOME SWELLING NOTED ON LOWER EXTREMITIES. PT WITH NICOLE CATH DRAINING CLOUDY YELLOW URINE. PT IS ST. PT ON BREATHING TREATMENTS. HOB ELEVATED. BED ALARM ON AND LOWEST POSITION. IV ON L FA 22G SL. POC DISCUSSED WITH PT. WILL ROUND FREQUENTLY.
--- NOTE | 2019-01-15 20:40 | NUR ---
VITAL SIGNS: 161/78 HR 100 RR 24 90% 3L NC, NO PAIN TEMP 98.9 BLOOD SUGAR 274 ADMINISTERED INSULIN PER SLIDING SCALE, ALL JOYCE MEDICATIONS GIVEN PER ORDERS, SAFETY MEASURES ARE IN PLACE, WILL CONTINUE TO MONITOR
[2019-01-15] MEDS: METOPROLOL SUCCINATE 50 MG TABER PO SCH (20:42)
--- NOTE | 2019-01-15 20:50 | NUR ---
DR CLARKE IN TO SEE PT. NO NEW CHANGES AT THIS TIME. PER DOCTOR CONTINUE ANTIBIOTICS.
[2019-01-15] MEDS: LORazepam 2 MG/ML VIAL IVP PRN (21:40)
--- NOTE | 2019-01-15 21:40 | NUR ---
PATIENT KEEPS TRYING TO GET OUT OF BED DESPITE ORIENTING HIM TO ROOM AND STAFF. PT REMAINS AAOX1 PERSON. ADMINISTERED ATIVAN IVP WILL CONTINUE TO MONITOR. BED ALARM ON AND BED NEAR NURSES STATION
[2019-01-15] MEDS ORDERED: cefTRIAXone 1,000 MG VIAL ONE (22:14)
--- NOTE | 2019-01-15 22:17 | NUR ---
ROCEPHIN NOW INFUSING PER ORDERS. SAFETY MEASURES ARE IN PLACE. WILL CONTINUE TO MONITOR
--- NOTE | 2019-01-15 23:00 | NUR ---
PAGED MULTIPLE SCLEROSIS NURSE MD FOR B/P 180/94 HR 97 NEW ORDERS PUT IN WILL F/U
--- NOTE | 2019-01-15 23:30 | NUR ---
RECHECKED B/P 138/87 HR 97 SAT 90% RR HIGH WITH LABORED BREATHING. PAGED RT. WILL WAIT FOR RECOMMENDATIONS.
--- NOTE | 2019-01-15 23:40 | NUR ---
RT AT BEDSIDE. PT IS MAINLY MOUTH BREATHER. SAT 90% RR 25. PER RT WILL GIVE BREATHING TX.
[2019-01-16] MEDS: IPRATROPIUM 0.02% 0.5 MG/2.5 ML NEBU INH SCH ×4 (00:10→21:36)
[2019-01-16] MEDS: cloNIDine 0.1 MG TAB PO PRN ×5 (00:27→23:02)
--- NOTE | 2019-01-16 02:00 | NUR ---
PATIENT IS SLEEPING COMFORTABLY IN BED WITH EYES CLOSED. RESPIRATIONS ARE SYMMETRICAL REMAIN ON NC 3L O2. HOB ELEVATED. BED ALARM ON. CALL LIGHT IS WITHIN REACH. WILL CONTINUE TO MONITOR.
[2019-01-16 04:00] VITALS: BP 167/92
--- NOTE | 2019-01-16 04:11 | NUR ---
VITAL SIGNS: 167/92 HR 106 90% ON 3L 98.6 RR 25. PT WAS CLEANED AND REPOSITION FOR COMFORT. HOB ELEVATED. EMPTIED NICOLE TOTAL 1300 OUTPUT. PT REMAINS ASLEEP WITH TACHYPNEA. ALL SAFETY MEASURES ARE IN PLACE. CALL LIGHT IS WITHIN REACH.
[2019-01-16] MEDS: INSULIN LISPRO SLIDING SCALE 100 UNITS/ML VIAL SUBQ PRN ×4 (06:44→21:01)
[2019-01-16] MEDS: BLOOD GLUCOSE MONITORING 1 DEV DEV FS SCH ×4 (06:47→20:55)
[2019-01-16 06:55] LABS: HEMATOCRIT 33.2 % (36-52); HEMOGLOBIN 9.9 g/dL (12.0-18.0); MEAN CORPUSCULAR HEMOGLOBIN 20 pg (27-31); MEAN CORPUSCULAR HGB CONC 30 g/dL (33-37); PLATELET COUNT (AUTO) 265 K/uL (140-450); RED BLOOD CELL COUNT(AUTO) 4.95 MIL/uL (4.20-6.10); RED CELL DISTRIBUTION WIDTH 19.4 % (11.6-13.7); WHITE BLOOD COUNT (AUTO) 19.3 K/uL (4.8-10.8)
--- NOTE | 2019-01-16 07:18 | NUR ---
GAVE BEDSIDE REPORT TO DAY RN. PT ENDORSED IN STABLE CONDITION.
[2019-01-16 07:25] LABS: ALBUMIN 1.8 g/dL (3.4-5.0); ANION GAP 15.4 (8-16); CARBON DIOXIDE 27.4 mmol/L (21-32); CREATININE 3.5 mg/dL (0.7-1.3); POTASSIUM 3.8 mmol/L (3.5-5.1); TOTAL BILIRUBIN 0.6 mg/dL (0.0-1.0)
[2019-01-16 08:00] VITALS: BP 176/94
[2019-01-16] MEDS: TAMSULOSIN 0.4 MG CAP PO SCH (08:50)
[2019-01-16] MEDS: METOPROLOL SUCCINATE 50 MG TABER PO SCH (08:51)
[2019-01-16] MEDS: LORazepam 2 MG/ML VIAL IVP PRN (08:51)
--- NOTE | 2019-01-16 09:00 | NUR ---
Pt was agitating. Pt was given lorazepam. [id number]
[2019-01-16] MEDS: ENOXAPARIN 30 MG/0.3 ML SYR SUBQ SCH (09:06)
[2019-01-16] MEDS: ALBUTEROL 0.083% 2.5 MG/3 ML NEBU INH PRN (09:09)
[2019-01-16 09:54] LABS: LYMPHOCYTES % (MANUAL) 12 % (20-46); MONOCYTES % (MANUAL) 8 % (5-12)
--- NOTE | 2019-01-16 10:00 | NUR ---
On reassessment pt was calm and resting in bed. No distress. No C/O pain. Call light in reach.
--- NOTE | 2019-01-16 11:10 | NUR ---
Pt was restless. On assessing his blood pressure. Pt's blood pressure was 173/87. Blood pressure medication catapres PRN was given. Call light in reach.
[2019-01-16 12:00] VITALS: BP 187/79
--- NOTE | 2019-01-16 12:00 | NUR ---
On reassessment of his blood pressure. Pt's blood pressure was still high at 187/79. Informed Dr. Carmona.
[2019-01-16] MEDS ORDERED: ENALAPRIL 10 MG TAB PO SCH (12:45)
[2019-01-16] MEDS ORDERED: CARVEDILOL 12.5 MG TAB PO SCH (12:47)
--- NOTE | 2019-01-16 15:07 | NUR ---
SCHEDULE THE F/U APPOINTMENT FOR HIGH RISK CLINIC ON JAN 30 2019 AT 3:[address] ROMEO HIGGINS THE ADDRESS [id number] [facility] [address] REMINDER GIVEN TO THE PT.
[2019-01-16 16:00] VITALS: BP 152/80
--- NOTE | 2019-01-16 17:00 | NUR ---
Pt resting in bed. Pt is restless. Provided comfort measures. Repositioned patient. Benji light in reach. [id number]
--- NOTE | 2019-01-16 19:27 | NUR ---
Shift report given to assistant casino shift manager nurse. Pt in bed resting. Call light in reach. [id number]
--- NOTE | 2019-01-16 19:28 | NUR ---
RECEIVED PT ON BED, AAOX1, RESTLESS AND CONFUSED, UNABLE TO FOLLOW COMMANDS, REORIENT TO PLACE AND TIME, UNABLE TO COMPREHEND, VITAL SIGNS TAKEN, BP ELEVATED, NO SIGNS OF PAIN NOTED, WILL GIVE DUE BP MEDICATION, TACHYPNEIC WITH RR-28, SAT-95% ON 3L NC, IV LINE SALINE LOCK, SAFETY MEASURES WITH SIDE RAILS UP AND BED ALARM ON, WILL DO FREQUENT ROUNDS, CALL LIGHT WITHIN REACH.
[2019-01-16 20:00] VITALS: BP 171/84
[2019-01-16] MEDS: CARVEDILOL 12.5 MG TAB PO SCH (20:52)
--- NOTE | 2019-01-16 21:00 | NUR ---
PT OCCASIONALLY TAKES OFF O2 AND TELE, REORIENT PT TO PLACE AND TIME, DUE BP MEDICATION CRUSHED AND GIVEN WITH APPLE SAUCE, REPOSITIONED AND OFFLOAD PRESSURE AREAS,
--- NOTE | 2019-01-16 21:40 | NUR ---
RT TRACIE GIVING BREATHING TX TO PT, RT AWARE THAT PT IS TACHYPNEIC, SAT RANGING FROM 93-96% ON O2 3L NC, PT MONITORED CLOSELY.
[2019-01-16] MEDS ORDERED: NACL 0.9% 500 ML IV SCH (22:35)
[2019-01-16] MEDS: MORPHINE SULFATE 2 MG/ML SYR IVP PRN (23:06)
--- NOTE | 2019-01-16 23:06 | NUR ---
PT SEEN RESTLESS, MOANING AND GRIMACING, VITAL SIGNS TAKEN, BP STILL ELEVATED, PT NODS WHEN ASK IF HE IS IN PAIN, MEDICATED WITH MORPHINE FOR PAIN AND CLONIDINE FOR ELEVATED BP, TACHYPNEIC WITH RR-26, SAT-95% ON O2 AT 3L NC, IVF INFUSING WELL, SIDE RAILS UP AND BED ALARM ON, CONTINUE TO MONITOR CLOSELY.
[2019-01-16 23:10] VITALS: BP 171/79
[2019-01-17 00:40] VITALS: BP 161/82
--- NOTE | 2019-01-17 00:40 | NUR ---
BP RECHECKED-161/82, HR-97, OPEN EYES TO TOUCH BUT DROWSY, SIDE RAILS UP AND BED ALARM ON, MONITORED CLOSELY.
[2019-01-17] MEDS: IPRATROPIUM 0.02% 0.5 MG/2.5 ML NEBU INH SCH ×4 (02:38→19:19)
[2019-01-17 04:00] VITALS: BP 149/84
--- NOTE | 2019-01-17 04:00 | NUR ---
SEEN PT SLEEPING WITH GOWN OFF, AROUSABLE BUT DROWSY, PUT BACK GOWN, VITAL SIGNS TAKEN, BP STABLE, SAT-96%, NO RESP DISTRESS NOTED, IVF INFUSING WELL, MONITORED CLOSELY.
[2019-01-17] MEDS: INSULIN LISPRO SLIDING SCALE 100 UNITS/ML VIAL SUBQ PRN ×4 (05:55→21:44)
[2019-01-17 06:27] LABS: HEMATOCRIT 31.8 % (36-52); HEMOGLOBIN 9.4 g/dL (12.0-18.0); MEAN CORPUSCULAR HEMOGLOBIN 20 pg (27-31); MEAN CORPUSCULAR HGB CONC 30 g/dL (33-37); MEAN CORPUSCULAR VOLUME 68.2 fL (80-94); PLATELET COUNT (AUTO) 284 K/uL (140-450); RED BLOOD CELL COUNT(AUTO) 4.66 MIL/uL (4.20-6.10); WHITE BLOOD COUNT (AUTO) 17.2 K/uL (4.8-10.8)
[2019-01-17] MEDS: BLOOD GLUCOSE MONITORING 1 DEV DEV FS SCH ×4 (06:37→21:29)
[2019-01-17 07:01] LABS: ALBUMIN 1.8 g/dL (3.4-5.0); ANION GAP 12.5 (8-16); CARBON DIOXIDE 31.5 mmol/L (21-32); CREATININE 3.1 mg/dL (0.7-1.3); TOTAL BILIRUBIN 0.4 mg/dL (0.0-1.0)
--- NOTE | 2019-01-17 07:24 | NUR ---
PT SLEEPING, OPEN EYES TO TOUCH, NO DISTRESS NOTED, REPORT GIVEN TO JULIANNA WILLIS FOR CONTINUITY OF CARE.
--- NOTE | 2019-01-17 07:28 | NUR ---
RECEIVED REPORT FROM TALENT ACQUISITION PROJECT MANAGER NURSE. PT AROUSABLE TO NAME, ORIENTED X1. PT ON DUNGEON MASTER. IV ON LT HAND 22 GA RUNNING IVF PER ORDER. RESPIRATIONS EVEN, RATE IS 38 BUT IN NO DISTRESS, O2 3L VIA N/C. ABD SOFT, BS ACTIVE. SKIN IS INTACT, WARM TO TOUCH. PT IS ON FALL RISK PRECAUTIONS, BED ON LOW POSITION, SAFETY MEASURES IN PLACE, CALL LIGHT WITHIN REACH. REVIEWED POC WITH PT, PT VERBALIZED UNDERSTANDING.
--- NOTE | 2019-01-17 07:30 | NUR ---
PAGED DR. GROVES TO REPORT PT'S BUN LEVEL OF 63, AWAITING CALL BACK.
--- NOTE | 2019-01-17 07:50 | NUR ---
RECEIVED CALL FROM DR. GROVES, PER PHYSICIAN DECREASE IVF RATE TO 40 ML/HR, GIVEN 1 L AFTER CURRENT BAG, THEN STOP. ORDERS CARRIED OUT.
[2019-01-17 08:00] VITALS: BP 131/67
[2019-01-17] MEDS: TAMSULOSIN 0.4 MG CAP PO SCH (09:26)
[2019-01-17] MEDS: CARVEDILOL 12.5 MG TAB PO SCH ×2 (09:26→21:31)
--- NOTE | 2019-01-17 09:26 | NUR ---
ADMINISTERED MORNING MEDICATIONS PER ORDER, REVIEWED INDICATIONS AND POTENTIAL SIDE EFFECTS OF MEDICATIONS TO PT.
--- NOTE | 2019-01-17 09:30 | NUR ---
DR. GROVES AT BEDSIDE DOING ASSESSMENT ON PT. PER PHYSICIAN, MONITOR PT'S INTAKE AND OUTPUT. F/C IN PLACE, NOTED 500 ML OF CLEAR, DARK YELLOW URINE IN COLLECTION BAG. WILL CONTINUE TO MONITOR.
[2019-01-17] MEDS: ENOXAPARIN 30 MG/0.3 ML SYR SUBQ SCH (09:36)
[2019-01-17] MEDS: DEXTROSE 5% 1,000 ML IV SCH (09:37)
--- NOTE | 2019-01-17 09:37 | NUR ---
IVF CHANGED TO DEXTROSE 5% RUNNING 65 ML/HR. WILL CONTINUE TO MONITOR INTAKE AND OUTPUT.
[2019-01-17 11:16] LABS: LYMPHOCYTES % (MANUAL) 6 % (20-46); MONOCYTES % (MANUAL) 6 % (5-12)
--- NOTE | 2019-01-17 11:45 | NUR ---
PER AMOR/PHYSICAL THERAPIST, PT WAS ABLE TO STAND UP AND WALK SIDEWAYS WITH ASSISTANCE.
[2019-01-17 12:00] VITALS: BP 122/66
--- NOTE | 2019-01-17 12:55 | NUR ---
WOUND CARE DONE, PICTURES TAKEN. PT TOLERATED WELL.
--- NOTE | 2019-01-17 14:00 | NUR ---
PT'S HAVE VISITORS AT BEDSIDE, PT STATES "I KNOW THEM FROM [place]". PT STILL SHOWS SIGNS OF DROWSINESS. WILL CONTINUE TO MONITOR.
[2019-01-17] MEDS: SKINTEGRITY HYDROGEL TP SCH (14:42)
[2019-01-17 16:00] VITALS: BP 146/76
[2019-01-17] MEDS: MORPHINE SULFATE 2 MG/ML SYR IVP PRN ×2 (17:02→23:03)
--- NOTE | 2019-01-17 17:17 | NUR ---
ADMINISTERED HUMALOG PER SLIDING SCALE FOR BLOOD SUGAR 418. WILL CONTINUE TO MONITOR.
--- NOTE | 2019-01-17 19:05 | NUR ---
ENDORSED PT TO CHIEF ACCOUNTING OFFICER NURSE. PT HAS NO SIGNS OF DISTRESS AT THIS TIME.
--- NOTE | 2019-01-17 19:05 | NUR ---
RECEIVED REPORT FORM ALBA LEVINE DAYSHIFT NURSE AT BEDSIDE FOR CONTINUITY OF CARE, PT IN STABLE CONDITION,
[2019-01-17] MEDS: ALBUTEROL 0.083% 2.5 MG/3 ML NEBU INH PRN (19:19)
[2019-01-17 20:00] VITALS: BP 140/62
--- NOTE | 2019-01-17 20:00 | NUR ---
PT IN BED, HE TOOK OFF YELLOW GOWN AND SAID HE WAS HOT AND REFUSED TO PUT GOWN BACK ON. ALL OTHER FALLS PROTOCOL IN PLACE. IV LUNGS SOUNDS DIMINISHED AND BOWELS ACTIVE. V/S FOLLOWS: T 98.3 P 90 R 18 B/P 140/62 02 95% WITH 3 LITERS VIA N/C. IV SITE INTACT AND RUNNING D5 AT 65MLS/HR.
--- NOTE | 2019-01-17 21:00 | NUR ---
PT GIVEN ORDERED COREG MEDICATION EDUCATION PROVIDED TO PT. PT FINGERSTICK IS 405, PT GIVEN 12 UNITS HUMALOG PER S/S.
--- NOTE | 2019-01-17 22:00 | NUR ---
PT GIVEN IV ABT ROCEPHIN, WHICH IS HUNG AND RUNNING ORDERED.AT 100MLS/HR.
--- NOTE | 2019-01-17 23:03 | NUR ---
PT GIVEN MORPHINE FOR LEFT LEG PAIN. DRESSING INTACT WITH MODERATE SEROSANGUINEOUS DRAINAGE, WILL CHANGE LATER.
[2019-01-18] VITALS: BP 115/70
--- NOTE | 2019-01-18 00:30 | NUR ---
PT IN BED NO S/S OF PAIN OR DISTRESS NOTED V/S FOLLOWS T 99.5 P 82 R 20 B/P 115/70 02 93% WITH 3 LITERS VIA N/C. ALL FALLS PRECAUTIONS IN PLACE.
[2019-01-18] MEDS: DEXTROSE 5% 1,000 ML IV SCH ×2 (00:56→18:24)
[2019-01-18] MEDS: ALBUTEROL 0.083% 2.5 MG/3 ML NEBU INH PRN ×2 (01:39→07:32)
[2019-01-18] MEDS: IPRATROPIUM 0.02% 0.5 MG/2.5 ML NEBU INH SCH ×4 (01:39→19:54)
--- NOTE | 2019-01-18 02:00 | NUR ---
PT DRESSING ON LOWER LEG CLEANED WITH NORMAL SALINE AND DRESSED WITH HYDROGEL AND DRY DRESSING.
[2019-01-18 04:00] VITALS: BP 160/81
--- NOTE | 2019-01-18 04:00 | NUR ---
PT IN BED ALL FALLS PRECAUTIONS IN PLACE AND CALL RUFFIN IN REACH. V/S FOLLOWS T 98.9 P 93 R 18 B/P 160/81 02 935 WITH 3 LITERS VIA N/C. PT NOT GIVEN PRN BECAUSE PRN BLOOD PRESSURE MEDS IS FOR ABOVE 160. WILL CONTINUE TO MONITOR BLOOD PRESSURE.
[2019-01-18] MEDS: INSULIN LISPRO SLIDING SCALE 100 UNITS/ML VIAL SUBQ PRN ×5 (06:19→20:19)
--- NOTE | 2019-01-18 06:45 | NUR ---
PT FINGERSTICK IS 378, PT GIVEN 10 UNITS OF HUMALOG COVERAGE.
--- NOTE | 2019-01-18 07:10 | NUR ---
RECEIVED PT FROM NIGHT NURSE IN STABLE CONDITION. PT AWAKE AAOX1. RESPIRATIONS EVEN AND UNLABORED ON 3L NC. SKIN WARM AND DRY. NICOLE CATHETER IN PLACE. IV IN PLACE L H 22G PATENT AND ASYMPTOMATIC INFUSING PER ORDER. PT DENIES PAIN. NO DISTRESS NOTED. SAFETY MEASURES IN PLACE. BED IN LOW POSITION. CALL LIGHT WITHIN REACH. WILL CONTINUE TO MONITOR.
[2019-01-18] MEDS: BLOOD GLUCOSE MONITORING 1 DEV DEV FS SCH ×4 (07:30→20:21)
[2019-01-18 08:00] VITALS: BP 138/76
[2019-01-18] MEDS: ENOXAPARIN 30 MG/0.3 ML SYR SUBQ SCH (09:01)
[2019-01-18] MEDS: TAMSULOSIN 0.4 MG CAP PO SCH (09:03)
[2019-01-18] MEDS: CARVEDILOL 12.5 MG TAB PO SCH ×2 (09:05→20:21)
[2019-01-18 09:06] LABS: HEMOGLOBIN 8.7 g/dL (12.0-18.0); MEAN CORPUSCULAR HEMOGLOBIN 20 pg (27-31); MEAN CORPUSCULAR HGB CONC 30 g/dL (33-37); MEAN CORPUSCULAR VOLUME 67.2 fL (80-94); PLATELET COUNT (AUTO) 307 K/uL (140-450); RED BLOOD CELL COUNT(AUTO) 4.31 MIL/uL (4.20-6.10); RED CELL DISTRIBUTION WIDTH 19.9 % (11.6-13.7); WHITE BLOOD COUNT (AUTO) 19.7 K/uL (4.8-10.8)
--- NOTE | 2019-01-18 09:14 | NUR ---
MEDICATIONS ADMINISTERED PER ORDER. PT TOLERATED WELL. WILL CONTINUE TO MONITOR.
[2019-01-18 09:25] LABS: BASOPHILS % (MANUAL) 0 % (0-2); EOSINOPHILS % (MANUAL) 0 % (0-4); LYMPHOCYTES % (MANUAL) 5 % (20-46); MONOCYTES % (MANUAL) 6 % (5-12)
--- NOTE | 2019-01-18 11:30 | NUR ---
BLOOD GLUCOSE CHECKED 471 AND 14 UNITS GIVEN. PAGED TO BE NOTIFIED
[2019-01-18 12:00] VITALS: BP 138/75
[2019-01-18 12:13] LABS: ANION GAP 15.3 (8-16); CARBON DIOXIDE 28.5 mmol/L (21-32); POTASSIUM 3.8 mmol/L (3.5-5.1)
[2019-01-18 12:15] LABS: ALBUMIN 1.8 g/dL (3.4-5.0); TOTAL BILIRUBIN 0.4 mg/dL (0.0-1.0)
--- NOTE | 2019-01-18 13:05 | NUR ---
INFORMED DR EID OF BLOOD GLUCOSE OF [address] EID ORDERED 10 UNITS OF HUMALOG TO BE GIVEN ON TOP OF THE 14 GIVEN COVERAGE FOR A TOTAL OF 24 UNITS
--- NOTE | 2019-01-18 13:37 | NUR ---
10 ADDITIONAL UNITS OF HUMALOG GIVEN TO PT PER ORDER OF DR NAPIER.
[2019-01-18 16:00] VITALS: BP 134/52
--- NOTE | 2019-01-18 16:02 | NUR ---
MEDICATIONS ADMINISTERED PER ORDER. PT TOLERATED WELL. WILL CONTINUE TO MONITOR.
--- NOTE | 2019-01-18 18:00 | NUR ---
WOUND DRESSING CHANGE DONE. CLEANSED WITH NORMAL SALINE. ADAPTIC DRESSING AND DRY GAUZE.
[2019-01-18] MEDS: SKINTEGRITY HYDROGEL TP SCH (18:24)
--- NOTE | 2019-01-18 19:05 | NUR ---
RECEIVED REPORT AT BEDSIDE FOR CONTINUITY OF CARE, PT IN STABLE CONDITION.
--- NOTE | 2019-01-18 19:05 | NUR ---
BEDSIDE REPORT GIVEN TO NIGHT NURSE FOR CONTINUITY OF CARE.
[2019-01-18 20:00] VITALS: BP 149/54
--- NOTE | 2019-01-18 20:04 | NUR ---
RECEIVED PATIENT ON 3L NASAL CANNULA, PULSE OX SAT 95%. SCHEDULED BREATHING TREATMENTS ADMINISTERED. TOLERATED TX WELL WITHOUT ADVERSE SIDE EFFECTS. NO ACUTE DISTRESS NOTED AT THIS TIME. WILL CONTINUE TO MONITOR.
--- NOTE | 2019-01-18 20:30 | NUR ---
PT IN BED WITH 3 LITERS VIA N/C PT HAS NO S/S OF DISTRESS NOTED. PT DINNER AT BEDSIDE, FOOD REHEATED AND PT ASSISTED WITH MEAL AT BEDSIDE. MD QUIROZ HERE AT BEDSIDE FOR NEPHRO CONSULT. V/S FOLLOWS T 98.6 P 88 R 18 B/P 149/54 02 95% ON 3 LITERS VIA N/C. FINGERSTICK IS 247. WILL PROVIDE COVERAGE.
--- NOTE | 2019-01-18 21:00 | NUR ---
PT GIVEN ORDERED COREG FOR HTN AND 4 UNITS OF HUMALOG COVERAGE FOR INCREASED BLOOD SUGAR. EDUCATION REGARDING MEDICATION PROVIDED TO PT. AT BEDSIDE. ALL FALLS PRECAUTIONS IN PLACE. BOWEL SOUNDS ACTIVE AND LUNG SOUNDS DIMINISHED.
--- NOTE | 2019-01-18 22:30 | NUR ---
ROCEPHIN HUNG ORDERED. PT WAS TURNED, CLEANED AND REPOSITIONED IN BED. PT IS CONFUSED AND HE TOOK OFF N/C NO S/S OF DISTRESS NOTED.
[2019-01-19] VITALS: BP 143/68
--- NOTE | 2019-01-19 | NUR ---
PT IN BED, HE PULLED OF HIS O2 AND HE PULED OUT HIS IV SITE. NEW IV SITE 22G ON RIGHT F/A, INTACT AND FLUSHED PATENT. V/S FOLLOWS T 98.7 P 86 R 18 B/P 143/68 02 98% WITH 3 LITERS VIA N/C. NO S/S OF PAIN OR DISTRESS NOTED.
[2019-01-19] MEDS: IPRATROPIUM 0.02% 0.5 MG/2.5 ML NEBU INH SCH ×4 (01:48→20:16)
--- NOTE | 2019-01-19 01:53 | NUR ---
SCHEDULED BREATHING TREATMENT ADMINISTERED. TOLERATED TX WELL WITHOUT ADVERSE SIDE EFFECTS. NO ACUTE RESPIRATORY DISTRESS NOTED. WILL CONTINUE TO MONITOR.
--- NOTE | 2019-01-19 02:30 | NUR ---
PT TURNED, CHANGED AND REPOSITIONED.ALL FALLS PRECAUTIONS IN PLACE. WOUND CARE PROVIDED.
[2019-01-19 04:00] VITALS: BP 135/45
--- NOTE | 2019-01-19 04:00 | NUR ---
PT PULLED OUT IV SITE RIGHT F/ARM 22G, CANNULA CAME OUT INTACT. NEW IV SITE PROVIDED R WRIST 22G INTACT AND FLUSHED PATENT. PT RUNNING D5 AT 656MLS/HR.
--- NOTE | 2019-01-19 04:30 | NUR ---
PT IN BED ALL FALLS PRECAUTIONS IN PLACE V/S FOLLOWS T 98.0 P 82 R 18 B/P 135/45 02 95% WITH 3 LITERS VIA N/C. HR 90 ON TELEMONITORING WITH NSR.
[2019-01-19] MEDS: INSULIN LISPRO SLIDING SCALE 100 UNITS/ML VIAL SUBQ PRN ×5 (05:38→20:10)
--- NOTE | 2019-01-19 06:00 | NUR ---
FINGERSTICK IS 312, PT GIVEN 8 UNITS OF HUMALOG COVERAGE.
[2019-01-19] MEDS: BLOOD GLUCOSE MONITORING 1 DEV DEV FS SCH ×4 (07:30→20:06)
[2019-01-19] MEDS: DEXTROSE 5% 1,000 ML IV SCH ×2 (07:42→22:17)
[2019-01-19 08:00] VITALS: BP 127/51
[2019-01-19] MEDS: TAMSULOSIN 0.4 MG CAP PO SCH (08:50)
[2019-01-19] MEDS: CARVEDILOL 12.5 MG TAB PO SCH ×2 (08:50→20:04)
[2019-01-19] MEDS: ENOXAPARIN 30 MG/0.3 ML SYR SUBQ SCH (08:53)
--- NOTE | 2019-01-19 08:56 | NUR ---
MEDICATIONS ADMINISTERED PER ORDER. PT TOLERATED WELL. WILL CONTINUE TO MONITOR.
[2019-01-19 11:47] LABS: BASOPHILS % (AUTO) 0.3 % (0.0-2.0); EOSINOPHILS # (AUTO) 0.1 K/uL (0-0.4); EOSINOPHILS % (AUTO) 0.7 % (0.0-4.0); HEMATOCRIT 27.3 % (36-52); HEMOGLOBIN 8.1 g/dL (12.0-18.0); LYMPHOCYTES # (AUTO) 0.8 K/uL (2.0-11.5); MEAN CORPUSCULAR HEMOGLOBIN 20 pg (27-31); MEAN CORPUSCULAR HGB CONC 30 g/dL (33-37); MEAN CORPUSCULAR VOLUME 67.3 fL (80-94); MONOCYTES % (AUTO) 6.1 % (1.7-9.3); NEUTROPHILS # (AUTO) 15.2 K/uL (1.8-7.7); PLATELET COUNT (AUTO) 309 K/uL (140-450); RED BLOOD CELL COUNT(AUTO) 4.06 MIL/uL (4.20-6.10); RED CELL DISTRIBUTION WIDTH 19.3 % (11.6-13.7); WHITE BLOOD COUNT (AUTO) 17.2 K/uL (4.8-10.8)
[2019-01-19 12:00] VITALS: BP 91/52
--- NOTE | 2019-01-19 12:14 | NUR ---
MEDICATIONS ADMINISTERED PER ORDER. PT TOLERATED WELL. DRESSING CHANGE DONE AT THIS TIME.
[2019-01-19 12:31] LABS: ALBUMIN 1.8 g/dL (3.4-5.0); ANION GAP 7.9 (8-16); CARBON DIOXIDE 31.9 mmol/L (21-32); CREATININE 2.4 mg/dL (0.7-1.3); POTASSIUM 3.8 mmol/L (3.5-5.1); TOTAL BILIRUBIN 0.4 mg/dL (0.0-1.0)
[2019-01-19] MEDS: SKINTEGRITY HYDROGEL TP SCH (13:05)
[2019-01-19 13:14] LABS: LYMPHOCYTES % (AUTO) 4.4 % (20.5-51.1); NEUTROPHILS % (AUTO) 88.5 % (42.2-75.2)
--- NOTE | 2019-01-19 14:32 | NUR ---
MEDICATIONS ADMINISTERED PER ORDER. PT TOLERATED WELL. WILL CONTINUE TO MONITOR.
[2019-01-19 16:00] VITALS: BP 155/65
--- NOTE | 2019-01-19 17:08 | NUR ---
MEDICATIONS ADMINISTERED PER ORDER. PRN TYLENOL GIVEN FOR TEMP OF 100.4. WILL CONTINUE TO MONITOR.
[2019-01-19] MEDS: ACETAMINOPHEN 325 MG TAB PO PRN (17:21)
--- NOTE | 2019-01-19 19:13 | NUR ---
REPORT GIVEN TO NIGHT NURSE FOR CONTINUITY OF CARE.
--- NOTE | 2019-01-19 19:14 | NUR ---
Received report from AM shift RN for continuity of care. Patient A/Ox1. Resting in bed comfortably. Introduced self and updated board. On 3 LPM via Nasal Cannula. O2sat at 3LPM. Fall precautions observed at all times. Call light within reach. Evans cath patent with yellow colored output. IV site on Right wrist patent and intact running IV fluid. Will continue to monitor.
[2019-01-19 20:00] VITALS: BP 140/68
--- NOTE | 2019-01-19 21:10 | NUR ---
Due medications given as ordered. Assisted patient to reposition. Patient pulled out nasal cannula. Placed back. O2 sat at 97%. Redirected patient. Will continue to monitor.
--- NOTE | 2019-01-19 22:04 | NUR ---
Received order from [employer] Worker Dr. Thorne to d/c IV fluid to heplock. Noted and carried out.
[2019-01-20] VITALS: BP 149/76
--- NOTE | 2019-01-20 | NUR ---
ROUNDS DONE. PATIENT ASLEEP. NOTED WITH VISIBLE CHEST RISE AND FALL. NO RESPIRATORY DISTRESS NOTED. SAFETY ENSURED. WILL CONTINUE TO MONITOR.
[2019-01-20] MEDS: LORazepam 2 MG/ML VIAL IVP PRN (01:54)
--- NOTE | 2019-01-20 01:55 | NUR ---
Patient given PRN Ativan for anxiety. No respiratory distress noted. Safety ensured. Bed alarm on. Call light within reach. Will continue to monitor.
[2019-01-20] MEDS: IPRATROPIUM 0.02% 0.5 MG/2.5 ML NEBU INH SCH ×4 (02:08→21:07)
--- NOTE | 2019-01-20 03:42 | NUR ---
Rounds done. Patient asleep in bed. Visible chest rise and fall noted. Safety ensured. Bed alarm on. Call light within reach. Will continue to monitor.
[2019-01-20 04:00] VITALS: BP 148/69
--- NOTE | 2019-01-20 05:35 | NUR ---
Rounds done. Patient removed nasal cannula. Placed back. No distress noted. Calm and cooperative. Will continue to monitor.
[2019-01-20] MEDS: BLOOD GLUCOSE MONITORING 1 DEV DEV FS SCH ×4 (05:49→20:19)
[2019-01-20] MEDS: INSULIN LISPRO SLIDING SCALE 100 UNITS/ML VIAL SUBQ PRN ×4 (06:00→20:17)
--- NOTE | 2019-01-20 06:22 | NUR ---
FSBG check done and insulin coverage per order given. Patient awake, lying in bed. Safety ensured. Bed in low position. Bed alarm on. Will endorse to AM shift RN for continuity of care.
[2019-01-20 06:45] LABS: BASOPHILS % (AUTO) 0.2 % (0.0-2.0); EOSINOPHILS # (AUTO) 0.1 K/uL (0-0.4); EOSINOPHILS % (AUTO) 0.6 % (0.0-4.0); HEMATOCRIT 27.5 % (36-52); HEMOGLOBIN 8.2 g/dL (12.0-18.0); LYMPHOCYTES # (AUTO) 0.9 K/uL (2.0-11.5); LYMPHOCYTES % (AUTO) 4.7 % (20.5-51.1); MEAN CORPUSCULAR HEMOGLOBIN 20 pg (27-31); MEAN CORPUSCULAR HGB CONC 30 g/dL (33-37); MEAN CORPUSCULAR VOLUME 67.7 fL (80-94); MONOCYTES # (AUTO) 0.9 K/uL (0.8-1.0); MONOCYTES % (AUTO) 4.9 % (1.7-9.3); NEUTROPHILS # (AUTO) 16.2 K/uL (1.8-7.7); NEUTROPHILS % (AUTO) 89.6 % (42.2-75.2); PLATELET COUNT (AUTO) 338 K/uL (140-450); RED BLOOD CELL COUNT(AUTO) 4.06 MIL/uL (4.20-6.10); RED CELL DISTRIBUTION WIDTH 19.3 % (11.6-13.7); WHITE BLOOD COUNT (AUTO) 18.1 K/uL (4.8-10.8)
[2019-01-20 06:50] LABS: ANION GAP 12.1 (8-16); CARBON DIOXIDE 31.1 mmol/L (21-32); CREATININE 2.1 mg/dL (0.7-1.3); POTASSIUM 4.2 mmol/L (3.5-5.1)
--- NOTE | 2019-01-20 07:10 | NUR ---
Received bedside report from pm nurse. Pt resting in bed, awake, aaox1, no signs of distress, no c/o discomfort. IV cath to right hand out, site with no bleeding, IV removed & covered with dry gauze. Per pt, "I don't know what happened there." Bed alarm on, call light within reach.
[2019-01-20 07:53] VITALS: BP 146/66
[2019-01-20] MEDS: CARVEDILOL 12.5 MG TAB PO SCH ×2 (08:25→20:11)
[2019-01-20] MEDS: TAMSULOSIN 0.4 MG CAP PO SCH (08:25)
[2019-01-20] MEDS: ENOXAPARIN 30 MG/0.3 ML SYR SUBQ SCH (08:29)
--- NOTE | 2019-01-20 09:30 | NUR ---
Daughter Lizett came in to visit pt. Informed her admitting papers need to be signed, agreed to drop by admitting department later. Pt resting in bed, no signs of distress, no c/o discomfort, respirations even & nonlabored with O2 @ 2Lpm via n/c. Bed alarm on. Call light within reach.
[2019-01-20 12:00] VITALS: BP 140/58
--- NOTE | 2019-01-20 12:30 | NUR ---
Pt in high fowlers in bed, aaox2, eating lunch independently. Daughter at bedside. Pt in no distress, no c/o discomfort. Call light within reach.
[2019-01-20] MEDS: SKINTEGRITY HYDROGEL TP SCH (13:00)
--- NOTE | 2019-01-20 14:13 | NUR ---
01/20/19 RD FOLLOW UP COMPLETED PLEASE REFER TO NUTRITION ASSESSMENT UNDER CARE ACTIVITY FOR ESTIMATED NUTRITIONAL NEEDS. 1. CONTINUE CCHO 60GM DIET TOLERATED 2. ENCOURAGE INCREASING PO INTAKE 3. RD TO FOLLOW-UP 3-5 DAYS, MODERATE RISK JAY HIGHTOWER, RD
--- NOTE | 2019-01-20 14:25 | NUR ---
Discharge planning. Clinicals faxed to [facility] .
[2019-01-20 16:00] VITALS: BP 129/52
--- NOTE | 2019-01-20 19:12 | NUR ---
Report given to pm nurse Melanie. Pt resting in bed, no signs of distress.
--- NOTE | 2019-01-20 19:13 | NUR ---
RECEIVED REPORT FROM AM SHIFT RN FOR CONTINUITY OF CARE. PATIENT A/O X1. RESTING IN BED COMFORTABLY. DENIES PAIN NOR DISCOMFORT. NASAL CANNULA ON BED. PLACED BACK ON PATIENT AND EDUCATED IMPORTANCE OF USE. ON 3L AT 97%. SAFETY ENSURED. BED IN LOW POSITION. BED ALARM ON. NICOLE CATHETER NOTED WITH YELLOW OUTPUT. WILL CONTINUE TO MONITOR.
[2019-01-20 20:00] VITALS: BP 137/64
--- NOTE | 2019-01-20 21:05 | NUR ---
PATIENT RESTING IN BED. DUE MEDICATIONS GIVEN ORDERED. INSERTED LEFT FOREARM 22G PERIPHERAL IV LINE. NO DISTRESS NOTED. TOLERATED WELL. SAFETY ENSURED. BED ALARM IN LOW POSITION. WILL CONTINUE TO MONITOR.
[2019-01-20] MEDS: ALBUTEROL 0.083% 2.5 MG/3 ML NEBU INH PRN (21:07)
--- NOTE | 2019-01-20 23:00 | NUR ---
ROUNDS DONE. PATIENT ASLEEP IN BED. VISIBLE CHEST RISE AND FALL NOTED. NO DISTRESS NOTED. SAFETY ENSURED. BED ALARM ON. BED IN LOW POSITION.
[2019-01-21] VITALS: BP 125/75
[2019-01-21] MEDS: IPRATROPIUM 0.02% 0.5 MG/2.5 ML NEBU INH SCH ×4 (01:21→20:20)
--- NOTE | 2019-01-21 01:52 | NUR ---
CHECKS DONE. PATIENT ASLEEP IN BED. VISIBLE CHEST RISE AND FALL NOTED. SAFETY ENSURED. BED IN LOW POSITION. CALL LIGHT WITHIN REACH. NO DISTRESS NOTED. WILL CONTINUE TO MONITOR.
--- NOTE | 2019-01-21 02:50 | NUR ---
ROUNDS DONE. PATIENT ASLEEP IN BED. NO DISTRESS NOTED. VISIBLE CHEST RISE AND FALL NOTED. BED IN LOW POSITION. BED ALARM ON. WILL CONTINUE TO MONITOR.
[2019-01-21 04:00] VITALS: BP 110/60
--- NOTE | 2019-01-21 04:48 | NUR ---
CHECKS DONE. PATIENT AWAKE IN BED, WATCHING TV. NO DISTRESS NOTED. SAFETY ENSURED. BED IN LOW POSITION. BED ALARM ON.
[2019-01-21] MEDS: INSULIN LISPRO SLIDING SCALE 100 UNITS/ML VIAL SUBQ PRN ×3 (05:23→16:53)
[2019-01-21] MEDS: BLOOD GLUCOSE MONITORING 1 DEV DEV FS SCH ×4 (05:24→21:00)
--- NOTE | 2019-01-21 06:21 | NUR ---
ROUNDS DONE. PATIENT AWAKE IN BED, TALKING TO SOMEONE ON HIS CELLPHONE. DENIES PAIN AT THIS TIME. NO DISTRESS NOTED. SAFETY ENSURED. BED IN LOW POSITION. BED ALARM ON. WILL ENDORSE TO NEXT NURSE FOR CONTINUITY OF CARE.
--- NOTE | 2019-01-21 07:20 | NUR ---
RECEIVED REPORT FROM TRUCK SHOP MECHANIC NURSE. PATIENT LYING DOWN IN BED RECEIVING A BREATHING TREATMENT. NO DISTRESS NOTED. DENIES ANY PAIN. AAOX2, FORGETFUL, SKIN COLOR APPROPRIATE TO ETHNICITY, WARM TO TOUCH. HAS LLE SORE, DRESSING DRY AND INTACT. IV SITE INTACT, PATENT, AND ON SALINE LOCK. RESPIRATIONS EVEN, UNLABORED, ON O2 3L/MIN VIA NC. REVIEWED PLAN OF CARE WITH PATIENT. PATIENT VERBALIZED UNDERSTANDING. SAFETY MEASURES IN PLACE, CALL LIGHT WITHIN REACH. WILL CONTINUE TO MONITOR.
[2019-01-21 07:52] LABS: BASOPHILS % (AUTO) 0.3 % (0.0-2.0); EOSINOPHILS # (AUTO) 0.1 K/uL (0-0.4); EOSINOPHILS % (AUTO) 0.9 % (0.0-4.0); HEMATOCRIT 26.6 % (36-52); HEMOGLOBIN 7.9 g/dL (12.0-18.0); LYMPHOCYTES # (AUTO) 0.8 K/uL (2.0-11.5); LYMPHOCYTES % (AUTO) 5.4 % (20.5-51.1); MEAN CORPUSCULAR HEMOGLOBIN 20 pg (27-31); MEAN CORPUSCULAR HGB CONC 30 g/dL (33-37); MONOCYTES # (AUTO) 0.8 K/uL (0.8-1.0); MONOCYTES % (AUTO) 5.1 % (1.7-9.3); NEUTROPHILS # (AUTO) 13.4 K/uL (1.8-7.7); NEUTROPHILS % (AUTO) 88.3 % (42.2-75.2); PLATELET COUNT (AUTO) 336 K/uL (140-450); RED BLOOD CELL COUNT(AUTO) 3.91 MIL/uL (4.20-6.10); RED CELL DISTRIBUTION WIDTH 19.8 % (11.6-13.7); WHITE BLOOD COUNT (AUTO) 15.1 K/uL (4.8-10.8)
[2019-01-21 08:00] VITALS: BP_SYST 127; BP_SYST 143; BP_DIAS 52; BP_DIAS 68
[2019-01-21 08:10] LABS: ALBUMIN 1.9 g/dL (3.4-5.0); ANION GAP 9.7 (8-16); CARBON DIOXIDE 32.3 mmol/L (21-32); CREATININE 1.8 mg/dL (0.7-1.3); MAGNESIUM 1.5 mg/dL (1.8-2.4); TOTAL BILIRUBIN 0.3 mg/dL (0.0-1.0)
[2019-01-21] MEDS ORDERED: CALCIUM CARBONATE 500 MG TAB.CHEW PO PRN (08:40)
[2019-01-21] MEDS: CARVEDILOL 12.5 MG TAB PO SCH ×2 (09:24→21:00)
[2019-01-21] MEDS: ENOXAPARIN 30 MG/0.3 ML SYR SUBQ SCH (09:24)
[2019-01-21] MEDS: TAMSULOSIN 0.4 MG CAP PO SCH (09:24)
--- NOTE | 2019-01-21 09:31 | NUR ---
PATIENT SITTING IN BED TALKING ON THE PHONE. NO DISTRESS NOTED. DENIES ANY PAIN. SCHEDULED MEDICATIONS DUE GIVEN. WILL CONTINUE TO MONITOR.
--- NOTE | 2019-01-21 10:02 | NUR ---
Spoke with Maria Guadalupe [facility] . Transportation AUTH # [id number], [facility] AUTH #[id number].
--- NOTE | 2019-01-21 10:19 | NUR ---
Clinicals faxed to [facility] . Addendum: 01/21/19 at 1032 by Lyubov Cage CM Disregard above notes.
--- NOTE | 2019-01-21 10:23 | NUR ---
Spoke with Francia from [facility] , they don't have a male bed available at this time.
--- NOTE | 2019-01-21 10:31 | NUR ---
Clinicals faxed to [facility] .
--- NOTE | 2019-01-21 11:48 | NUR ---
Spoke with Latosha from [facility] , no male bed available today and tomorrow.
[2019-01-21 12:00] VITALS: BP 143/68
--- NOTE | 2019-01-21 12:58 | NUR ---
PATIENT SITTING IN BED. NO DISTRESS NOTED. DENIES ANY PAIN. SCHEDULED MEDICATIONS DUE GIVEN. WILL CONTINUE TO MONITOR.
[2019-01-21] MEDS ORDERED: MAG SULF 2000 MG/WATER PREMIX 50 ML IV SCH (13:00)
--- NOTE | 2019-01-21 13:13 | NUR ---
Sharath Lerma from [facility] pt is going to [facility] today.
[2019-01-21] MEDS: SKINTEGRITY HYDROGEL TP SCH (13:18)
[2019-01-21 16:00] VITALS: BP 145/64
--- NOTE | 2019-01-21 16:08 | NUR ---
Transportation arranged with [facility] (will call) .
--- NOTE | 2019-01-21 16:50 | NUR ---
[facility].
--- NOTE | 2019-01-21 16:53 | NUR ---
Randy will pick and shovel worker pt at 1999 and will be transported to [address] [id number] MD is Dr. Kingston.
--- NOTE | 2019-01-21 16:54 | NUR ---
PATIENT LYING DOWN IN BED SLEEPING, AROUSABLE BY VOICE. NO DISTRESS NOTED. DENIES ANY PAIN. SCHEDULED MEDICATIONS DUE GIVEN. WILL CONTINUE TO MONITOR.
[2019-01-21] MEDS ORDERED: METF500T PO (18:27)
[2019-01-21] MEDS ORDERED: AMLO5TAB1 PO (18:27)
[2019-01-21] MEDS ORDERED: ROC1PM IV (18:29)
--- NOTE | 2019-01-21 18:48 | NUR ---
CALLED [facility] AND GAVE REPORT TO JULIANNA CONTRERAS. ANSWERED ALL OF BEN'S QUESTIONS REGARDING TRANSFER. NOTIFIED BEN OF PICKUP TIME SCHEDULED 1999 BY [facility]. BEN VERBALIZED COMPLETE UNDERSTANDING AND AWAITING FOR PATIENT'S ARRIVAL. WILL CONTINUE TO MONITOR.
--- NOTE | 2019-01-21 19:25 | NUR ---
GAVE REPORT TO HOG SCALDER NURSE FOR CONTINUITY OF CARE. PATIENT IN STABLE CONDITION.
--- NOTE | 2019-01-21 20:31 | NUR ---
RECEIVED PT ON 2L NC, SPO2 96%. BREATH SOUNDS: COARSE. NO RESPIRATORY DISTRESS NOTED AT THIS TIME. TX GIVEN ORDERED. PT TOLERATED TX WELL. NO ADVERSE REACTION. WILL CONTINUE TO MONITOR PT.
--- NOTE | 2019-01-21 22:00 | NUR ---
PT RECEIVED AWAKE ALERTAND ORIENTED. NO C/O 0F ANY DISCOMFORT . VITAL SIGN STABLE PT SIGNED ALL THE PAPERS UPDATE GIVEN TO THE PARAPEDICS .PAPERS GIVEN TO THE PARAMEDICS ..
--- NOTE | 2019-01-21 22:00 | NUR ---
PT RECIEVED AWAKE ALERT AND ORIENTED X3 PT WARM AND INTACT .NO C/O PAIN .. NO SOB ,PT IS GOING TO BE TRANSFER TO ANOTHER FACILITY . PT IS TRANSFER WITH [facility] . PT RECEIVED ROCEPHIN .PT,S BLOOD SUGAR 125. VITAL SIGN .SIGNED ALL PAPER .PRPORT GIVEN TO THE AMBULANCE DRIVERS . PT SIGNED ALL THE PAPERS THAT NEEDS TO BE SIGNED .
[2019-01-22 00:19] VITALS: BP 128/75
--- NOTE | 2019-01-22 09:48 | NUR ---
Wound care consult not done pt. discharged.
== END 2019-01-21 22:30 | DRG 871 ==
LOC: MED 16:11 → MTU 19:36
PROVIDERS: ADMIT Internal Medicine Pulmonary Disease; ATTEND Internal Medicine Pulmonary Disease
DX: A41.51 Sepsis due to Escherichia coli [E. coli] (principal); N17.0 Acute kidney failure with tubular necrosis; G93.41 Metabolic encephalopathy; N12 Tubulo-interstitial nephritis, not specified as acute or chronic; J44.1 Chronic obstructive pulmonary disease with (acute) exacerbation; I12.9 Hypertensive chronic kidney disease with stage 1 through stage 4 chronic kidney disease, or unspecified chronic kidney disease; E66.9 Obesity, unspecified; E11.22 Type 2 diabetes mellitus with diabetic chronic kidney disease; N18.9 Chronic kidney disease, unspecified; H70.90 Unspecified mastoiditis, unspecified ear; E11.65 Type 2 diabetes mellitus with hyperglycemia; D64.9 Anemia, unspecified; W18.30XA Fall on same level, unspecified, initial encounter; Y93.89 Activity, other specified; Z99.81 Dependence on supplemental oxygen; Z87.891 Personal history of nicotine dependence; Z68.29 Body mass index [BMI] 29.0-29.9, adult; Y92.009 Unspecified place in unspecified non-institutional (private) residence as the place of occurrence of the external cause; Y99.8 Other external cause status
CPT/HCPCS: 36415; 36600; 70450; 71045; 76770; 80048; 80053; 80305; 81001; 82550; 82803; 82948; 83605; 83735; 83880; 84100; 84484; 85025; 85610; 85730; 87040; 87081; 87086; 87186; 93005; 94640; 96365; 96367; 96372; 97110; 97112; 97116; 97161-GP; 97530; 99291; A6248; C1758; J0696; J1650; J1815; J1940; J2060; J2270; J2543; J3370; J3475; J7030; J7042; J7060; J7613; J7620; J7644; Q0092

== ENCOUNTER 2019-01-27 19:20 | Inpatient (IN) | payer OTHER ==
[~2019-01-27] VITALS: Ht 172.7 cm; Wt 97.1 kg
[~2019-01-27 19:20] MED LIST changes: +AMLO5TAB1 PO; +METF500T PO; -PRED20TA5 PO; +ROC1PM IV
[2019-01-27 19:27] VITALS: BP 105/54
--- NOTE | 2019-01-27 19:42 | NUR ---
PT BIBA BLS FROM [facility] C/O HIGH BLOOD SUGAR AND FALL. DENIES LOC. PER EMT PT WAS GIVEN 8 UNITS INSULIN AND SUGAR WAS 473, PT GIVEN 10 MORE UNITS AND SUGAR RECHECK WAS 417, ON SCENE SUGAR WAS 434. PT SKIN DRY AND COOL. PT PLACED ON MONITOR. VSS. RR EVEN AN UNLABORED. PT POSITIONED COMFORTABLY IN BED. MEDHX: COPD, DM ALLERGIES: DENIES
--- NOTE | 2019-01-27 20:52 | NUR ---
LAB AT BEDSIDE FOR DRAW.
--- NOTE | 2019-01-27 21:00 | NUR ---
PT RESTING IN COMFORTABLE POSTION. BED LOCKED AND IN LOW POSITION. VSS. WILL CONTINUE TO MONITOR.
[2019-01-27 21:20] LABS: BASOPHILS # (AUTO) 0.1 K/uL (0.00-0.22); BASOPHILS % (AUTO) 0.7 % (0.0-2.0); EOSINOPHILS # (AUTO) 0.1 K/uL (0-0.4); EOSINOPHILS % (AUTO) 0.9 % (0.0-4.0); LYMPHOCYTES # (AUTO) 1.5 K/uL (2.0-11.5); LYMPHOCYTES % (AUTO) 10.7 % (20.5-51.1); MEAN CORPUSCULAR HEMOGLOBIN 22 pg (27-31); MEAN CORPUSCULAR HGB CONC 31 g/dL (33-37); MEAN CORPUSCULAR VOLUME 70.7 fL (80-94); MONOCYTES # (AUTO) 0.6 K/uL (0.8-1.0); NEUTROPHILS # (AUTO) 11.5 K/uL (1.8-7.7); NEUTROPHILS % (AUTO) 83.7 % (42.2-75.2); PLATELET COUNT (AUTO) 403 K/uL (140-450); RED BLOOD CELL COUNT(AUTO) 2.23 MIL/uL (4.20-6.10); RED CELL DISTRIBUTION WIDTH 20.3 % (11.6-13.7); WHITE BLOOD COUNT (AUTO) 13.7 K/uL (4.8-10.8)
--- NOTE | 2019-01-27 21:30 | NUR ---
XRAY AT BEDSIDE
[2019-01-27 21:32] LABS: ANION GAP 7.1 (8-16); CARBON DIOXIDE 33.9 mmol/L (21-32); CREATININE 1.7 mg/dL (0.7-1.3)
[2019-01-27 21:35] LABS: BILIRUBIN,URINE NEGATIVE (NEGATIVE); BLOOD, URINE TRACE-I (NEGATIVE); COLOR,URINE YELLOW (YELLOW); LEUKOCYTE ESTERASE ,URINE 2+ (NEGATIVE); NITRITE, URINE NEGATIVE (NEGATIVE); UGLUCOSE NEGATIVE (NEGATIVE)
[2019-01-27 21:39] LABS: APPEARANCE,URINE CLOUDY (CLEAR)
[2019-01-27 21:39] LABS: ALBUMIN 2.1 g/dL (3.4-5.0); TOTAL BILIRUBIN 0.2 mg/dL (0.0-1.0)
[2019-01-27 21:42] LABS: HEMATOCRIT 15.8 % (36-52); HEMOGLOBIN 4.8 g/dL (12.0-18.0)
[2019-01-27 21:50] LABS: BARBITURATE, URINE NEG. ng/ml (NEG <=200); BENZODIAZEPINE, URINE NEG. ng/mL (NEG <=200); CANNABINOID, URINE NEG. ng/mL (NEG <=50); COCAINE, URINE NEG. ng/mL (NEG <=300); OPIATE, URINE NEG. ng/mL (NEG <=2000); PHENCYCLIDINE SCREEN,URINE NEG. ng/mL (NEG <=25)
[2019-01-27] MEDS ORDERED: NACL 0.9% 1,000 ML IV ONE (21:50)
[2019-01-27] MEDS ORDERED: cefTRIAXone 1,000 MG VIAL ONE (21:56)
[2019-01-27 22:03] LABS: RBC,URINE 0-5 /HPF (0-5); WBC,URINE TOO MANY TO COUNT /HPF (0-5)
[2019-01-27 22:20] LABS: PROTHROMBIN TIME 10.1 secs (10.8-13.4)
[2019-01-27] MEDS ORDERED: PANTOPRAZOLE 80 MG in NACL 0.9% 100 ML IV SCH (22:30)
[2019-01-27] MEDS ORDERED: PANTOPRAZOLE 40 MG INJ VIAL IVP ONE (22:30)
[2019-01-27] MEDS ORDERED: PANTOPRAZOLE 40 MG INJ VIAL ONE (22:38)
--- NOTE | 2019-01-27 23:05 | NUR ---
PT RESTING IN BED WITH EYES CLOSED. VSS. WILL CONTINUE TO MONITOR.
[2019-01-27] MEDS ORDERED: MORPHINE SULFATE 4 MG/ML SYR IVP PRN (23:40)
[2019-01-27] MEDS ORDERED: ONDANSETRON 4 MG/2 ML VIAL IVP PRN (23:40)
[2019-01-27] MEDS ORDERED: MORPHINE SULFATE 2 MG/ML SYR IVP PRN (23:40)
[2019-01-27] MEDS ORDERED: ZOLPIDEM 5 MG TAB PO PRN (23:40)
[2019-01-28] VITALS (8 sets, daily range): BP systolic 138–152; BP diastolic 59–82
[2019-01-28] MEDS ORDERED: FERR325E14 PO (00:10)
[2019-01-28] MEDS ORDERED: FURO40TA9 PO (00:12)
[2019-01-28] MEDS ORDERED: INSU100S22 SUBQ (00:13)
[2019-01-28] MEDS ORDERED: LEVOFLOXACIN 500 MG/D5W PREMIX 100 ML IV SCH (00:20)
--- NOTE | 2019-01-28 00:20 | NUR ---
Patient arrived in unit via [facility], accompanied by two DENTAL COORDINATOR's; patient A/Ox4, able to make needs known, Australian speaking, bedrest, uses cane at baseline. Patient transferred from [facility] to bed with assistance. Introduced self, updated board, oriented patient to room and hospital environment. Chief complaint fo elevated glucose levels, DX is Symptomatic anemia and GI bleed. SOB or distress noted, on O2 2LPM via nasal cannula. IV site noted on left forearm, 202 gauge, running Protonix at 10mL/hr., powerhouse mechanic Taylor inserted new IV site at right forearm, 20 gauge for blood transfusion. Skin intact, but patient noted with BLE pitting edema +2. Bed in the lowest position, call light within reach. Initial assessment done. Will continue to monitor.
[2019-01-28] MEDS ORDERED: METF1000 PO (00:21)
[2019-01-28] MEDS ORDERED: LOVA20TA8 PO (00:22)
[2019-01-28] MEDS ORDERED: FLONAS NS (00:24)
[2019-01-28] MEDS ORDERED: GABA300C PO (00:27)
[2019-01-28] MEDS ORDERED: CALC-784 PO (00:28)
[2019-01-28] MEDS ORDERED: OMEP20TC10 PO (00:29)
--- NOTE | 2019-01-28 00:29 | NUR ---
Patient will be admitted to care of DR GREEN. Admited to TELE. Will go to room 110A. Belongings list completed. Report to JULIANNA HAWKINS.
--- NOTE | 2019-01-28 01:00 | NUR ---
Blood transfusion started at this time.
--- NOTE | 2019-01-28 03:00 | NUR ---
At bedside with patient, blood transfusion still running at this time.
[2019-01-28] MEDS: NACL 0.9% 1,000 ML IV SCH ×2 (04:06→09:36)
--- NOTE | 2019-01-28 04:10 | NUR ---
Blood transfusion completed at 0400. No adverse reaction noted throughout transfusion.
--- NOTE | 2019-01-28 06:00 | NUR ---
Vitals stable, due meds given. Will endorse to AM shift RN for continuity of care.
[2019-01-28 07:30] LABS: BASOPHILS # (AUTO) 0.1 K/uL (0.00-0.22); BASOPHILS % (AUTO) 0.9 % (0.0-2.0); EOSINOPHILS # (AUTO) 0.1 K/uL (0-0.4); EOSINOPHILS % (AUTO) 1.3 % (0.0-4.0); LYMPHOCYTES # (AUTO) 1.2 K/uL (2.0-11.5); LYMPHOCYTES % (AUTO) 10.8 % (20.5-51.1); MEAN CORPUSCULAR HEMOGLOBIN 24 pg (27-31); MEAN CORPUSCULAR HGB CONC 32 g/dL (33-37); MEAN CORPUSCULAR VOLUME 74.6 fL (80-94); MONOCYTES # (AUTO) 0.5 K/uL (0.8-1.0); MONOCYTES % (AUTO) 4.4 % (1.7-9.3); NEUTROPHILS % (AUTO) 82.6 % (42.2-75.2); PLATELET COUNT (AUTO) 358 K/uL (140-450); RED BLOOD CELL COUNT(AUTO) 2.22 MIL/uL (4.20-6.10); RED CELL DISTRIBUTION WIDTH 25.2 % (11.6-13.7); WHITE BLOOD COUNT (AUTO) 10.8 K/uL (4.8-10.8)
--- NOTE | 2019-01-28 07:34 | NUR ---
RECEIVED HAND OFF REPORT ON PT PT APPEARS STABLE AND IN NO APPARENT DISTRESS. ALL SAFETY MEASURES ARE IN PLACE WILL CONTINUE TO MONITOR
[2019-01-28 08:08] LABS: HEMATOCRIT 16.5 % (36-52); HEMOGLOBIN 5.2 g/dL (12.0-18.0)
--- NOTE | 2019-01-28 08:54 | NUR ---
PATIENT HAS BEEN SCREENED AND CATEGORIZED MODERATE NUTRITION RISK. PATIENT WILL BE SEEN WITHIN 3-5 DAYS OF ADMISSION. 01/30/19 02/01/[address]
[2019-01-28] MEDS ORDERED: LEVOFLOXACIN 750 MG/D5W PREMIX 150 ML IV SCH (09:00)
[2019-01-28] MEDS: PANTOPRAZOLE 40 MG INJ VIAL IVP SCH ×2 (09:17→22:28)
[2019-01-28 09:37] LABS: CREATININE 1.6 mg/dL (0.7-1.3); MAGNESIUM 1.2 mg/dL (1.8-2.4); POTASSIUM 4.9 mmol/L (3.5-5.1); TOTAL BILIRUBIN 0.3 mg/dL (0.0-1.0)
--- NOTE | 2019-01-28 09:42 | NUR ---
FREQUENT ROUNDING ON PT PT APPEARS STABLE AND IN NO APPARENT DISTRESS, ALL SAFETY MEASURES ARE IN PLACE WILL CONTINUE TO MONITOR.
--- NOTE | 2019-01-28 11:34 | NUR ---
FREQUENT ROUNDING ON PT PT APPEARS STABLE AND IN NO APPARENT DISTRESS. ALL SAFETY MEASURES ARE IN PLACE. WILL CONTINUE TO MONITOR.
[2019-01-28 11:39] LABS: ANION GAP 11.9 (8-16)
--- NOTE | 2019-01-28 12:08 | NUR ---
BLOOD TRANSFUSION HAS BEEN STARTED PT AWAKE IN BED PT VITALS APPEAR STABLE WILL CONTINUE AT PT BEDSIDE FOR THE FIRST 15 MINUTES TO WATCH FOR ANY ADVERSE REACTION
--- NOTE | 2019-01-28 13:27 | NUR ---
FREQUENT ROUNDING ON PT PT AWAKE IN BED PT APPEARS STABLE AND IN NO APPARENT DISTRESS, ALL SAFETY MEASURES ARE IN PLACE. BLOOD TRANSFUSION INFUSING NO SIGNS OF ADVERSE REACTION. IV SITE PATENT NO SIGNS OF INFILTRATION OR INFLAMMATION. WILL CONTINUE TO MONITOR.
[2019-01-28] MEDS ORDERED: fentaNYL 0.05 MG/ML VIAL ONE (16:05)
[2019-01-28] MEDS ORDERED: diphenhydrAMINE 50 MG/ML VIAL ONE (16:06)
[2019-01-28] MEDS ORDERED: MIDAZOLAM 2 MG/2 ML VIAL ONE (16:06)
[2019-01-28] MEDS: MIDAZOLAM 2 MG/2 ML VIAL IVP ONE ×2 (16:07→16:48)
[2019-01-28] MEDS: fentaNYL 0.05 MG/ML VIAL IVP ONE ×2 (16:08→16:47)
--- NOTE | 2019-01-28 16:10 | NUR ---
PT TAKEN OFF THE UNIT VIA BED TO OR FOR EGD. CONSENT SIGNED AND IN CHART. PT APPEARS STABLE AND IN NO APPARENT DISTRESS ALL SAFETY MEASURES ARE IN PLACE.
--- NOTE | 2019-01-28 16:40 | NUR ---
PT ARRIVED BACK ON UNIT. 2L NASAL CANULA ALL SAFETY MEASURES ARE IN PLACE WILL CONTINUE TO MONITOR
[2019-01-28] MEDS ORDERED: FUROSEMIDE 20 MG/2 ML VIAL IVP SCH (17:00)
--- NOTE | 2019-01-28 17:45 | NUR ---
ADMINISTERED UNIT OF BLOOD VITALS AT BEDSIDE. WILL CONTINUE TO MONITOR
[2019-01-28] MEDS ORDERED: SODIUM FERRIC GLUCONATE 125 MG in NACL 0.9% 100 ML IV SCH (18:00)
[2019-01-28] MEDS: SENNA 8.6 MG TAB PO SCH (18:26)
--- NOTE | 2019-01-28 19:23 | NUR ---
RECIEVED PT AAOX4 , NID O2 SAT. 95% , IV SITES INTACT AND PATENT , WITH ON GOING BT #3RD UNIT OF PRBC - NO BT RXN NOTED AT THIS TIME , SKIN INTACT , WITH PITTING EDEMA ON THE LEGS . BEDREST FOR AWHILE , USES URINAL - URINAL AT BEDSIDE REACHABLE BY PT.WITH O2 INH. AT 2LPM/NC . PLAN OF CARE DISCUSSED AND VERBALIZE UNDERSTANDING - CALL LIGHT WITHIN REACH , ON FALL /SAFETY PRECAUTION PROTOCOL - BED ALARM ON. WILL CONT. TO MONITOR
--- NOTE | 2019-01-28 19:23 | NUR ---
ENDORSED PT TO PM RN PT APPEARS STABLE AND IN NO APPARENT DISTRESS. FERROUS SULFATE INFUSING BLOOD TRANSFUSION INFUSING ALL SAFETY MEASURES ARE IN PLACE 2L 02 VIA NASAL CANULA
--- NOTE | 2019-01-28 19:46 | NUR ---
RECEIVED PATIENT ON 2L NASAL CANNULA, PULSE OX SAT 100%. NO ACUTE RESPIRATORY DISTRESS NOTED AT THIS TIME. WILL CONTINUE TO MONITOR.
--- NOTE | 2019-01-28 20:10 | NUR ---
ENDORSED TO GAS PLUMBING INSPECTOR NURSE MANAGER CULTURE FOR CONT. OF CARE .NO BT RXN NOTED AT THIS TIME
--- NOTE | 2019-01-28 20:10 | NUR ---
RECEIVED REPORT FROM OTHER DIRECTOR OF SALES MARKETING NURSE. BLOOD TRANSFUSION ON GOING. PT RESTING IN BED WITH EYES CLOSED. NO S/S OF PAIN OR RESP DISTRESS NOTED. ON O2 AT 2L/MIN VIA NC. SAFETY PRECAUTION IN PLACE. CALL LIGHT WITHIN REACH.
--- NOTE | 2019-01-28 21:45 | NUR ---
BLOOD TRANSFUSION COMPLETED. NO ADVERSE REACTION NOTED. NO C/O PAIN OR SOB.
[2019-01-28] MEDS: LACTULOSE 20 GM/30 ML UDC PO SCH (22:28)
[2019-01-28] MEDS: SUPREP BOWEL PREP KIT 354 ML SOLN.RECON PO SCH (22:29)
--- NOTE | 2019-01-28 22:30 | NUR ---
BOWEL PREP GIVEN TO PT. NO C/O PAIN OR DISCOMFORT.
--- NOTE | 2019-01-28 23:00 | NUR ---
V/S TAKEN. STARTED ANOTHER BAG OF PRBC/ BLOOD TRANSFUSION .
[2019-01-29] VITALS (7 sets, daily range): BP systolic 146–156; BP diastolic 59–83
--- NOTE | 2019-01-29 01:00 | NUR ---
BLOOD TRANSFUSION ON GOING. PT HAD BM WITH BLOOD. DENIES PAIN OR SOB.
--- NOTE | 2019-01-29 02:10 | NUR ---
BLOOD TRANSFUSION COMPLETED. NO REACTION NOTED. PT DENIES PAIN OR SOB.
--- NOTE | 2019-01-29 03:00 | NUR ---
PT'S MAG 1.2 THIS MORNING. AWARE PER NOTES. WILL ENDORSE TO DAY SHIFT. Addendum: 01/29/19 at 0357 by Renetta Danielle RN PT'S MAG 1.2 ON 01/28/[address] GREEN AWARE PER NOTES. WILL ENDORSE TO DAY SHIFT.
[2019-01-29] MEDS ORDERED: LEVOFLOXACIN 250 MG/D5 PREMIX 50 ML IV SCH (05:00)
--- NOTE | 2019-01-29 05:00 | NUR ---
PT HAD BM MULTIPLE TIMES. PT AWAKE AT THIS TIME. NO C/O PAIN OR SOB. ALL NEEDS ATTENDED AT THIS TIME.
--- NOTE | 2019-01-29 05:23 | NUR ---
PAGED DR. GREEN FOR PT'S MAG 1.2. ORDERED MAG SULFATE 2GM IV X1.
[2019-01-29] MEDS ORDERED: MAG SULF 2000 MG/WATER PREMIX 50 ML IV SCH (06:00)
--- NOTE | 2019-01-29 07:00 | NUR ---
ENDORSED PT TO DAY SHIFT NURSE. PT IN STABLE CONDITION.
[2019-01-29 07:15] LABS: HEMATOCRIT 25.6 % (36-52); HEMOGLOBIN 8.4 g/dL (12.0-18.0); MEAN CORPUSCULAR HEMOGLOBIN 26 pg (27-31); MEAN CORPUSCULAR HGB CONC 33 g/dL (33-37); MEAN CORPUSCULAR VOLUME 78.9 fL (80-94); PLATELET COUNT (AUTO) 327 K/uL (140-450); RED BLOOD CELL COUNT(AUTO) 3.24 MIL/uL (4.20-6.10); RED CELL DISTRIBUTION WIDTH 24.4 % (11.6-13.7); WHITE BLOOD COUNT (AUTO) 8.4 K/uL (4.8-10.8)
--- NOTE | 2019-01-29 07:38 | NUR ---
RECEIVED HAND OFF REPORT FROM PM RN PT AWAKE IN BED PT APPEARS STABLE AND IN NO APPARENT DISTRESS. ALL SAFETY MEASURES ARE IN PLACE WILL CONTINUE TO MONITOR
[2019-01-29] MEDS: SUPREP BOWEL PREP KIT 354 ML SOLN.RECON PO SCH (09:00)
--- NOTE | 2019-01-29 09:05 | NUR ---
FREQUENT ROUNDING ON PT PT APPEARS STABLE AND IN NO APPARENT DISTRESS, ALL SAFETY MEASURES ARE IN PLACE WILL CONTINUE TO MONITOR
[2019-01-29] MEDS: NACL 0.9% 1,000 ML IV SCH (09:36)
[2019-01-29] MEDS: LACTULOSE 20 GM/30 ML UDC PO SCH (09:49)
[2019-01-29] MEDS: PANTOPRAZOLE 40 MG INJ VIAL IVP SCH (09:49)
[2019-01-29] MEDS: SENNA 8.6 MG TAB PO SCH ×2 (09:49→12:44)
[2019-01-29] MEDS: SODIUM FERRIC GLUCONATE 125 MG in NACL 0.9% 100 ML IV SCH ×2 (09:50→20:05)
--- NOTE | 2019-01-29 10:24 | NUR ---
SECOND ROUND OF BOWEL PREP KIT MISSING. CALLED PHARMACY THEY BROUGHT ME A NEW KIT ADMINISTERED IT TO THE PATIENT. PT AWARE OF PROCESS OF DRINKING THE SOLUTIO ALONG WITH 2 16 OZ OF WATER. WITHIN 1 HOUR
[2019-01-29 11:11] LABS: EOSINOPHILS % (MANUAL) 3 % (0-4); LYMPHOCYTES % (MANUAL) 9 % (20-46); MONOCYTES % (MANUAL) 5 % (5-12)
--- NOTE | 2019-01-29 11:15 | NUR ---
FREQUENT ROUNDING ON PT PT APPEARS STABLE AND IN NO APPARENT DISTRESS. ALL SAFETY MEASURES ARE IN PLACE WILL CONTINUE TO MONITOR
[2019-01-29] MEDS ORDERED: diphenhydrAMINE 50 MG/ML VIAL ONE (12:12)
[2019-01-29] MEDS ORDERED: MIDAZOLAM 2 MG/2 ML VIAL ONE (12:12)
[2019-01-29] MEDS ORDERED: fentaNYL 0.05 MG/ML VIAL ONE (12:12)
--- NOTE | 2019-01-29 13:12 | NUR ---
ROSETTE FROM GI LAB AT BEDSIDE TO TAKE PATIENT FOR COLONOSCOPY. PT AWAKE IN BED PT STABLE AND IN NO APPARENT DISTRESS. ALL SAFETY MEASURES ARE IN PLACE
[2019-01-29] MEDS ORDERED: MIDAZOLAM 2 MG/2 ML VIAL IVP ONE (14:40)
[2019-01-29] MEDS ORDERED: fentaNYL 0.05 MG/ML VIAL IVP ONE (14:40)
--- NOTE | 2019-01-29 15:21 | NUR ---
PT ARRIVED BACK ON THE UNIT POST COLONOSCOPY. PT APPEARS STABLE AND IN NO APPARENT DISTRESS. ALL SAFETY MEASURES ARE IN PLACE WILL CONTINUE TO MONITOR.
--- NOTE | 2019-01-29 17:34 | NUR ---
FREQUENT ROUNDING ON PT PT APPEARS STABLE AND IN NO APPARENT DISTRESS. ALL SAFETY MEASURES ARE IN PLACE PT FAMILY AT BEDSIDE. WILL CONTINUE TO MONITOR.
[2019-01-29] MEDS: FERROUS SULFATE 325 MG TABEC PO SCH (18:20)
--- NOTE | 2019-01-29 19:13 | NUR ---
ENDORSED PT TO PM RN PT AWAKE IN BED PT APPEARS STABLE AND IN NO APPARENT DISTRESS. ALL SAFETY MEASURES ARE IN PLACE
--- NOTE | 2019-01-29 19:14 | NUR ---
REPORT RECEIVED FROM AM NURSE AT BEDSIDE. PT IN STABLE CONDITION. AAOX4. INTRODUCED SELF TO PT. BOARD UPDATED. NO COMPLAINTS OF PAIN. NO SOB. AFEBRILE. PT IS ON BEDREST BUT HAS PHYSICAL THERAPY DAILY. ABLE TO AMBULATE AROUND ROOM BUT WAS SOB. IV SITE L FA 22G RUNNING NS@20ML/HR PATENT AND INTACT. R FA 20G SL PATENT AND INTACT. SKIN WARM, DRY, AND INTACT WITH NO OPEN WOUNDS. BED LOCKED IN LOW POSITION. CALL RUFFIN WITHIN REACH. SAFETY PRECAUTION IN PLACE. ALL NEEDS MET AT THIS TIME.
--- NOTE | 2019-01-29 20:05 | NUR ---
POP HUNG AND RUNNING. PT TOLERATING WELL.
--- NOTE | 2019-01-29 21:25 | NUR ---
PT SLEEPING COMFORTABLY BUT AROUSABLE. NO S/S OF DISTRESS NOTED. WILL CONTINUE TO MONITOR.
--- NOTE | 2019-01-29 23:15 | NUR ---
PT SLEEPING COMFORTABLY BUT AROUSABLE. NO S/S OF DISTRESS NOTED. NO COMPLAINTS OF PAIN. NO SOB. AFEBRILE. WILL CONTINUE TO MONITOR.
[2019-01-30] VITALS: BP 159/65
--- NOTE | 2019-01-30 01:50 | NUR ---
PT SLEEPING COMFORTABLY BUT AROUSABLE. NO S/S OF DISTRESS NOTED. RESPIRATIONS EVEN, UNLABORED, AND WNL. WILL CONTINUE TO MONITOR.
--- NOTE | 2019-01-30 03:15 | NUR ---
PT SLEEPING COMFORTABLY BUT AROUSABLE. NO S/S OF DISTRESS NOTED. WILL CONTINUE TO MONITOR.
[2019-01-30 04:00] VITALS: BP 152/56
--- NOTE | 2019-01-30 05:25 | NUR ---
PT SLEEPING COMFORTABLY BUT AROUSABLE. TELE MONITORING. NO S/S OF DISTRESS NOTED. WILL CONTINUE TO MONITOR.
--- NOTE | 2019-01-30 06:30 | NUR ---
PT SLEEPING COMFORTABLY BUT AROUSABLE. NO S/S OF DISTRESS NOTED. PT IN STABLE CONDITION.
--- NOTE | 2019-01-30 07:20 | NUR ---
RECEIVED REPORT FROM NIGHT NURSE. PT WITH EYES CLOSED, AROUSABLE TO SPEECH, AAOX4. RESPIRATIONS EVEN AND UNLABORED ON ROOM AIR, BREATH SOUNDS CLEAR, O2 SAT 94%. PT DENIES PAIN. IV IN PLACE PATENT AND ASYMPTOMATIC INFUSING PER ORDER IN L FA 22G. IV IN PLACE R FA 20G SALINE LOCKED. SKIN INTACT. BED IN LOW POSITION. SAFETY MEASURES IN PLACE. CALL LIGHT WITHIN REACH. WILL CONTINUE TO MONITOR.
[2019-01-30 08:00] VITALS: BP 109/67
[2019-01-30] MEDS ORDERED: PANTOPRAZOLE 40 MG TABEC PO SCH (09:00)
[2019-01-30] MEDS ORDERED: LACTULOSE 20 GM/30 ML UDC PO SCH (09:00)
[2019-01-30] MEDS ORDERED: SENNA 8.6 MG TAB PO SCH (09:00)
[2019-01-30] MEDS: FERROUS SULFATE 325 MG TABEC PO SCH (09:32)
[2019-01-30] MEDS: SODIUM FERRIC GLUCONATE 125 MG in NACL 0.9% 100 ML IV SCH (09:33)
--- NOTE | 2019-01-30 09:37 | NUR ---
MEDICATIONS ADMINISTERED PER ORDER. PT TOLERATED WELL. NO DISTRESS NOTED. DENIES PAIN. WILL CONTINUE TO MONITOR.
--- NOTE | 2019-01-30 10:52 | NUR ---
PT ROUNDS DONE AT THIS TIME. PT SITTING IN BED WATCHING TV. NO DISTRESS NOTED. PT DENIES PAIN. SAFETY MEASURES IN PLACE. WILL CONTINUE TO MONITOR.
[2019-01-30 12:00] VITALS: BP 180/86
[2019-01-30 12:01] LABS: BASOPHILS % (AUTO) 0.5 % (0.0-2.0); EOSINOPHILS # (AUTO) 0.1 K/uL (0-0.4); EOSINOPHILS % (AUTO) 1.6 % (0.0-4.0); HEMATOCRIT 26.8 % (36-52); HEMOGLOBIN 8.5 g/dL (12.0-18.0); LYMPHOCYTES % (AUTO) 11.4 % (20.5-51.1); MEAN CORPUSCULAR HEMOGLOBIN 26 pg (27-31); MEAN CORPUSCULAR HGB CONC 32 g/dL (33-37); MEAN CORPUSCULAR VOLUME 80.6 fL (80-94); MONOCYTES # (AUTO) 0.6 K/uL (0.8-1.0); MONOCYTES % (AUTO) 6.7 % (1.7-9.3); NEUTROPHILS # (AUTO) 6.8 K/uL (1.8-7.7); NEUTROPHILS % (AUTO) 79.8 % (42.2-75.2); PLATELET COUNT (AUTO) 331 K/uL (140-450); RED BLOOD CELL COUNT(AUTO) 3.33 MIL/uL (4.20-6.10); RED CELL DISTRIBUTION WIDTH 24.8 % (11.6-13.7); WHITE BLOOD COUNT (AUTO) 8.5 K/uL (4.8-10.8)
--- NOTE | 2019-01-30 12:20 | NUR ---
INFORMED DR GREEN OF CRITICAL VALUE OF BLOOD SUGAR 452 VIA TELEPHONE AND RECEIVED A TORB FOR 20UNITS HUMALOG SUBQ ONCE AT 1400 AND REEVALUATE IN 90 MINUTES. WILL CONTINUE TO MONITOR.
[2019-01-30 12:22] LABS: ALBUMIN 2.4 g/dL (3.4-5.0); ANION GAP 10.7 (8-16); CARBON DIOXIDE 30.7 mmol/L (21-32); CREATININE 1.5 mg/dL (0.7-1.3); POTASSIUM 4.4 mmol/L (3.5-5.1); TOTAL BILIRUBIN 0.3 mg/dL (0.0-1.0)
--- NOTE | 2019-01-30 13:05 | NUR ---
Mask Designer Note: Per Maddi from [facility] , patient may return to room 6A today, accepting MD is . Per Transfer Station Attendant Maira Guadalupe from [facility] , transportation auth is [id number]. She stated she will provide [facility] with snf auth.
--- NOTE | 2019-01-30 13:30 | NUR ---
20 UNITS OF HUMALOG SUBQ GIVEN PER ORDER FROM DR GREEN. WILL REEVALUATE IN 90 MINUTES.
[2019-01-30] MEDS ORDERED: INSULIN LISPRO 100 UNITS/ML VIAL SUBQ SCH ×2 (14:00→16:00)
--- NOTE | 2019-01-30 14:37 | NUR ---
DC PLANNING : PT IS GOING BACK TO [facility] ROOM 6 A ARRANGED TRANSPORT WITH [facility] SPOKE WITH GILBERTO B[employer] UMPIRE FOR LITTLE LEAGUE TIME 6PM
--- NOTE | 2019-01-30 15:20 | NUR ---
BLOOD GLUCOSE REEVALUATED. RESULT IS 253MG/DL. WILL CONTACT DR GREEN
--- NOTE | 2019-01-30 15:27 | NUR ---
CALLED DR GREEN, INFORMED HIM OF PTS LATEST BLOOD SUGAR OF 253. ORDERED 8 UNITS OF HUMALOG SUBQ AND REEVALUATION IN 60 MINUTES. WILL CONTINUE TO MONITOR
[2019-01-30 16:00] VITALS: BP 158/74
--- NOTE | 2019-01-30 16:50 | NUR ---
TALKED TO DR GREEN ON THE PHONE. INFORMED HIM OF PTS LAST BLOOD GLUCOSE OF 92. PT CLEARED FOR DISCHARGE BY DR GREEN.
[2019-01-30 17:19] VITALS: BP 158/74
--- NOTE | 2019-01-30 17:37 | NUR ---
CALLED [facility] AND GAVE REPORT TO RAJIV POR PT TRANSFER.
--- NOTE | 2019-01-30 18:30 | NUR ---
PT DISCHARGED AT THIS TIME. DISCHARGE AND FOLLOWUP TEACHINGS PROVIDED, PT VERBALIZED UNDERSTANDING. BOTH IV SIGHTS REMOVED WITH MINIMAL BLOOD LOSS AND LUMEN INTACT. ID BANDS REMOVED. BELONGINGS RETURNED TO PT. PT IN STABLE CONDITION. RESPIRATIONS EVEN AND UNLABORED ON ROOM AIR. PT PICKED UP MY [facility] TRANSPORT SERVICE AND ESCORTED OFF THE UNIT VIA GURNEY.
== END 2019-01-30 18:41 | DRG 377 ==
LOC: MED 19:20 → MTU 23:44
PROVIDERS: ADMIT Internal Medicine; ATTEND Internal Medicine
PROC: 0DB68ZX Excision of Stomach, Via Natural or Artificial Opening Endoscopic, Diagnostic (ICD-10-PCS; 2019-01-28)
PROC: 30233N1 Transfusion of Nonautologous Red Blood Cells into Peripheral Vein, Percutaneous Approach (ICD-10-PCS; principal; 2019-01-28 16:00)
PROC: 0DJD8ZZ Inspection of Lower Intestinal Tract, Via Natural or Artificial Opening Endoscopic (ICD-10-PCS; 2019-01-29)
DX: K25.4 Chronic or unspecified gastric ulcer with hemorrhage (principal); E43 Unspecified severe protein-calorie malnutrition; N39.0 Urinary tract infection, site not specified; E87.2 Acidosis; D62 Acute posthemorrhagic anemia; J96.11 Chronic respiratory failure with hypoxia; N17.9 Acute kidney failure, unspecified; K22.10 Ulcer of esophagus without bleeding; E83.42 Hypomagnesemia; E11.65 Type 2 diabetes mellitus with hyperglycemia; F17.200 Nicotine dependence, unspecified, uncomplicated; J44.9 Chronic obstructive pulmonary disease, unspecified; K21.9 Gastro-esophageal reflux disease without esophagitis; Z87.39 Personal history of other diseases of the musculoskeletal system and connective tissue; I95.9 Hypotension, unspecified; N18.9 Chronic kidney disease, unspecified; I12.9 Hypertensive chronic kidney disease with stage 1 through stage 4 chronic kidney disease, or unspecified chronic kidney disease; E11.22 Type 2 diabetes mellitus with diabetic chronic kidney disease; Z68.32 Body mass index [BMI] 32.0-32.9, adult
CPT/HCPCS: 36415; 70450; 71045; 80053; 80305; 81001; 82550; 82948; 83605; 83735; 84484; 85025; 85610; 85730; 86677; 86870; 86886; 86900; 86901; 86920; 87040; 87081; 87086; 93005; 96365; 96367; 96375; 97110; 97116; 97161-GP; 97530; 99285; C9113; J0696; J1200; J1815; J1940; J1956; J2250; J2916; J3010; J3475; J7030; J7060; P9016; Q0092

== ENCOUNTER 2019-02-10 12:50 | Inpatient (IN) | payer OTHER ==
[~2019-02-10] VITALS: Ht 182.9 cm; Wt 102.5 kg
[2019-02-10] MEDS: IPRATROPIUM 0.02% 0.5 MG/2.5 ML NEBU INH SCH (01:18)
[~2019-02-10 12:50] MED LIST changes: -AMLO5TAB1 PO; +CALC-784 PO; +FERR325E14 PO; +FLONAS NS; +FURO40TA9 PO; +GABA300C PO; +INSU100S22 SUBQ; +LOVA20TA8 PO; +METF1000 PO; -METF500T PO; +OMEP20TC10 PO; -ROC1PM IV
[2019-02-10 12:52] VITALS: BP 205/87
--- NOTE | 2019-02-10 12:52 | NUR ---
PATIENT BIBA TO BED 7 AT THIS TIME.
--- NOTE | 2019-02-10 12:55 | NUR ---
Pt placed on soft restraints to bilateral wrists per Dr. Romo order. Pt very restless and making attempts to get out of bed. Pt re-oriented and redirected to stay in bed. Pt also having hallucinations.
--- NOTE | 2019-02-10 12:55 | NUR ---
68/M shannen ALS from [facility] with complaints of fever this am. Per EMS, pt had temperature at the SNF of 100 and then elevated to 102. Pt arrived to ED very agitated and restless on EMS gurney. Pt yelling "I wanna get up! Help me! I need to sit up." Pt in a high calderón's position while he is yelling. Pt restless and trying to get up from gurney. Pt was moved from EMS gurney to bed 7. Pt assisted into a standing and pivot to bed with 2 person assist. Pt yelling "I need to pee!" Pt assisted with using urinal. Pt extremely agitated and restless, unable to sit still on gurney, continuing to yell "Help me! I need to sit up!" Patient is AOX2, to name and place. Patient GCS 14, follows commands. Pt skin hot to touch, dry, mucous membranes dry and tacky. Pt placed on flat surfacer showing sinus tachycardia, pulse oximetry, O2 sat 89% on room air, with blood pressure monitoring. Pt placed on 2L oxygen via nasal canula. Pt now 93% on oxygen.
--- NOTE | 2019-02-10 12:57 | NUR ---
DR. STEELE AT BEDSIDE EVALUATING PATIENT.
[2019-02-10] MEDS ORDERED: ACETAMINOPHEN EXTRA STRENGTH 500 MG TAB PO ONE (13:00)
[2019-02-10] MEDS ORDERED: NACL 0.9% 2,000 ML IV ONE (13:00)
[2019-02-10] MEDS ORDERED: HALOPERIDOL IM 5 MG/ML VIAL IM ONE (13:00)
[2019-02-10 13:42] LABS: BASOPHILS % (AUTO) 0.4 % (0.0-2.0); EOSINOPHILS # (AUTO) 0.3 K/uL (0-0.4); EOSINOPHILS % (AUTO) 3.6 % (0.0-4.0); HEMATOCRIT 31.3 % (36-52); HEMOGLOBIN 9.9 g/dL (12.0-18.0); LYMPHOCYTES # (AUTO) 0.4 K/uL (2.0-11.5); MEAN CORPUSCULAR HEMOGLOBIN 25 pg (27-31); MEAN CORPUSCULAR HGB CONC 32 g/dL (33-37); MEAN CORPUSCULAR VOLUME 80.7 fL (80-94); MONOCYTES # (AUTO) 0.2 K/uL (0.8-1.0); MONOCYTES % (AUTO) 2.5 % (1.7-9.3); NEUTROPHILS # (AUTO) 8.2 K/uL (1.8-7.7); NEUTROPHILS % (AUTO) 89.5 % (42.2-75.2); PLATELET COUNT (AUTO) 169 K/uL (140-450); RED BLOOD CELL COUNT(AUTO) 3.88 MIL/uL (4.20-6.10); RED CELL DISTRIBUTION WIDTH 22.2 % (11.6-13.7); WHITE BLOOD COUNT (AUTO) 9.2 K/uL (4.8-10.8)
--- NOTE | 2019-02-10 13:45 | NUR ---
Soft restraints removed. Pt is now resting comfortably in bed. No longer restless and thrashing in [facility]. Dr. Romo aware.
[2019-02-10 13:51] LABS: ANION GAP 11.1 (8-16); CARBON DIOXIDE 33.2 mmol/L (21-32); CREATININE 1.5 mg/dL (0.7-1.3); POTASSIUM 4.3 mmol/L (3.5-5.1)
[2019-02-10 13:56] LABS: ALBUMIN 3.1 g/dL (3.4-5.0); TOTAL BILIRUBIN 0.4 mg/dL (0.0-1.0)
--- NOTE | 2019-02-10 13:58 | NUR ---
Pt resting quietly in bed, no longer yelling. Pt no longer yelling, resless or agitated. Pt receiving IV fluids.
[2019-02-10] MEDS ORDERED: ERGO500028 PO (14:23)
[2019-02-10] MEDS ORDERED: PRON INH (14:23)
[2019-02-10] MEDS ORDERED: GABA300C PO (14:23)
[2019-02-10] MEDS ORDERED: HYDR-5122 PO (14:23)
[2019-02-10] MEDS ORDERED: NAPR-54 PO (14:23)
[2019-02-10] MEDS ORDERED: CALC1CAP PO (14:23)
[2019-02-10] MEDS ORDERED: ATRN INH (14:23)
--- NOTE | 2019-02-10 14:31 | NUR ---
Patient noted to have existing wounds upon arrival to ER. Photos taken of wound and placed in chart. Wound covered with dressing. Physician informed. Wound culture obtained and sent to lab.
--- NOTE | 2019-02-10 14:32 | NUR ---
EMT PHOTOGRAPHING WOUND ON L ANKLE AT BEDSIDE
[2019-02-10 14:56] LABS: PROTHROMBIN TIME 9.3 secs (10.8-13.4)
[2019-02-10] MEDS ORDERED: LEVOFLOXACIN 750 MG/D5W PREMIX 150 ML IV ONE (15:00)
[2019-02-10 15:20] LABS: APPEARANCE,URINE CLEAR (CLEAR); BILIRUBIN,URINE NEGATIVE (NEGATIVE); BLOOD, URINE 1+ (NEGATIVE); LEUKOCYTE ESTERASE ,URINE TRACE (NEGATIVE); NITRITE, URINE NEGATIVE (NEGATIVE); UGLUCOSE 1+ (NEGATIVE)
[2019-02-10] MEDS: LACTATED RINGERS 1,000 ML IV SCH (15:29)
[2019-02-10] MEDS ORDERED: LORazepam 2 MG/ML VIAL IVP PRN (15:30)
[2019-02-10] MEDS ORDERED: MORPHINE SULFATE 4 MG/ML SYR IVP PRN (15:30)
[2019-02-10] MEDS ORDERED: HYDROcodone/APAP 5/325 MG 1 TAB TAB PO PRN (15:30)
[2019-02-10] MEDS ORDERED: ONDANSETRON 4 MG/2 ML VIAL IVP PRN (15:30)
[2019-02-10] MEDS ORDERED: ALBUTEROL 0.083% 2.5 MG/3 ML NEBU INH PRN ×2 (15:30)
[2019-02-10] MEDS ORDERED: DEXTROSE 50% 50 ML SYR IVP PRN (15:30)
[2019-02-10 15:52] LABS: COLOR,URINE STRAW (YELLOW)
[2019-02-10] MEDS: BLOOD GLUCOSE MONITORING 1 DEV DEV FS SCH ×2 (16:30→20:39)
--- NOTE | 2019-02-10 16:36 | NUR ---
PT TRANSFERRED TO TELE.
--- NOTE | 2019-02-10 16:50 | NUR ---
Patient will be admitted to care of DR WALTERS. Admited to TELE. Will go to room 107B. Belongings list completed. Report to JOHNATHAN LEVINE.
--- NOTE | 2019-02-10 16:50 | NUR ---
RECEIVED PATIENT FROM RECOVERY COORDINATOR. PATIENT IS FULL CODE, NKA. PATIENT IS AAOX3/4. PATIENT IS ON NASAL CANNULA 2L. PT HAS TWO IV SITES: LEFT HAND 22G, RIGHT AC 20G. PT USES URINAL. HAS A LEFT ANKLE ULCER- STATES IT WAS FROM THE HEEL OF HIS SHOES. WILL REVIEW PLAN OF CARE
--- NOTE | 2019-02-10 17:10 | NUR ---
ADMINISTERED 6U OF INSULIN FOR BLOOD SUGAR OF 253
[2019-02-10] MEDS: INSULIN LISPRO SLIDING SCALE 100 UNITS/ML VIAL SUBQ PRN ×2 (17:54→20:56)
--- NOTE | 2019-02-10 18:58 | NUR ---
PATIENT HAS LACTATED RINGERS INFUSING AT 80ML/HR. RESTING QUIETLY IN BED, NASAL CANNULA AT 2L. NO COMPLAINTS AT THIS TIME. WILL ENDORSE TO NEXT SHIFT FOR CONTINUITY OF CARE.
--- NOTE | 2019-02-10 19:05 | NUR ---
RECEIVED BEDSIDE REPORT FROM DAY SHIFT NURSE. PT BREATHING EVEN AND UNLABORED WITH 2LPM VIA NC. IV SITED ON LH 22G, SL, RAC, 20G, RUNNING WITH LR @80MLS/HR. PATENT, INTACT, ASYMPTOMATIC. SKIN WARM AND DRY TO TOUCH. PT USES URINAL. BOARD UPDATED, POC REVIEWED, PT VERBALIZED UNDERSTANDING. BED IN LOW POSITION, CALL LIGHT WITHIN REACH.
[2019-02-10 20:00] VITALS: BP 158/81
--- NOTE | 2019-02-10 20:39 | NUR ---
GIVEN NAPROXEN AND ZOCOR MD ORDERED. BS CHECKED, 240. WILL COVER WITH INSULIN. PT TOLERATED WELL.
[2019-02-10] MEDS: NAPROXEN 500 MG TAB PO SCH (20:41)
--- NOTE | 2019-02-10 20:56 | NUR ---
GIVEN LANTUS MD ORDERED, GIVEN HUMALOG SLIDING SCALE. PT TOLERATED WELL.
[2019-02-10] MEDS ORDERED: NON-FORMULARY ITEM (Lovastatin 1 TAB) PO SCH (21:00)
[2019-02-10] MEDS ORDERED: NON-FORMULARY ITEM (Insulin Glargine,Hum.rec.anlog (Lantus Solostar) 10 UNIT) SUBQ SCH (21:00)
[2019-02-10] MEDS ORDERED: SIMVASTATIN 10 MG TAB PO SCH (21:00)
[2019-02-10] MEDS ORDERED: INSULIN LANTUS 100 UNITS/ML 10 ML VIAL SUBQ SCH (21:00)
--- NOTE | 2019-02-10 21:41 | NUR ---
RECEIVED PATIENT ON 2L NASAL CANNULA, PULSE OX SAT 99%. PATIENT DENIES SOB. PRN HHN NOT INDICATED. NO RESPIRATORY DISTRESS NOTED. WILL CONTINUE TO MONITOR.
[2019-02-11] VITALS: BP 156/59
--- NOTE | 2019-02-11 | NUR ---
VS CHECKED, WITHIN PT'S BASELINE. WILL CONTINUE TO MONITOR.
--- NOTE | 2019-02-11 01:34 | NUR ---
PT HAD BM USING BEDSIDE COMMODE. LH IV WAS REMOVED. RESTART IV WITH RAC, 20, INFUSING WELL. PT TOLERATED WELL.
[2019-02-11] MEDS ORDERED: NON ADHERENT DRESSING TP PRN (02:55)
[2019-02-11] MEDS ORDERED: NACL 0.9% IRR 250 ML BOTTLE IR PRN (02:55)
--- NOTE | 2019-02-11 03:55 | NUR ---
VS CHECKED, WITHIN PT'S BASELINE. WILL CONTINUE TO MONITOR.
[2019-02-11] MEDS: LACTATED RINGERS 1,000 ML IV SCH ×2 (03:59→06:35)
[2019-02-11 04:00] VITALS: BP 150/81
[2019-02-11] MEDS: BLOOD GLUCOSE MONITORING 1 DEV DEV FS SCH ×2 (06:15→11:53)
--- NOTE | 2019-02-11 06:15 | NUR ---
BS CHECKED, 169, INSULIN WILL COVER BASED ON SLIDING SCALE.
[2019-02-11] MEDS: INSULIN LISPRO SLIDING SCALE 100 UNITS/ML VIAL SUBQ PRN ×2 (06:34→12:12)
--- NOTE | 2019-02-11 06:34 | NUR ---
GIVEN INSULIN AND PROTONIX MD ORDERED. IVF DONE, HANG NEW IV BAG MD ORDERED. PT TOLERATED WELL.
[2019-02-11] MEDS: IPRATROPIUM 0.02% 0.5 MG/2.5 ML NEBU INH SCH (06:45)
[2019-02-11 07:19] LABS: BASOPHILS % (AUTO) 0.3 % (0.0-2.0); EOSINOPHILS # (AUTO) 0.3 K/uL (0-0.4); HEMATOCRIT 28.7 % (36-52); HEMOGLOBIN 9.2 g/dL (12.0-18.0); LYMPHOCYTES # (AUTO) 0.8 K/uL (2.0-11.5); LYMPHOCYTES % (AUTO) 9.1 % (20.5-51.1); MEAN CORPUSCULAR HEMOGLOBIN 26 pg (27-31); MEAN CORPUSCULAR HGB CONC 32 g/dL (33-37); MEAN CORPUSCULAR VOLUME 80.6 fL (80-94); MONOCYTES # (AUTO) 0.9 K/uL (0.8-1.0); NEUTROPHILS # (AUTO) 6.7 K/uL (1.8-7.7); NEUTROPHILS % (AUTO) 77.6 % (42.2-75.2); PLATELET COUNT (AUTO) 155 K/uL (140-450); RED BLOOD CELL COUNT(AUTO) 3.56 MIL/uL (4.20-6.10); RED CELL DISTRIBUTION WIDTH 22.3 % (11.6-13.7); WHITE BLOOD COUNT (AUTO) 8.7 K/uL (4.8-10.8)
--- NOTE | 2019-02-11 07:19 | NUR ---
Shift report received from toaster operator nurse. Pt is in bed in stable condition. Call light in reach.
[2019-02-11] MEDS ORDERED: PANTOPRAZOLE 40 MG TABEC PO SCH (07:30)
[2019-02-11 07:41] LABS: ALBUMIN 2.6 g/dL (3.4-5.0); CARBON DIOXIDE 31.8 mmol/L (21-32); CREATININE 1.2 mg/dL (0.7-1.3); POTASSIUM 3.8 mmol/L (3.5-5.1); TOTAL BILIRUBIN 0.5 mg/dL (0.0-1.0)
[2019-02-11 08:00] VITALS: BP 159/91
[2019-02-11] MEDS ORDERED: NON-FORMULARY ITEM (Omeprazole 20 MG) PO SCH (08:00)
--- NOTE | 2019-02-11 08:18 | NUR ---
PATIENT HAS BEEN SCREENED AND CATEGORIZED HIGH NUTRITION RISK. PATIENT WILL BE SEEN WITHIN 1-2 DAYS OF ADMISSION. 02/11/19-02/12/[address]
[2019-02-11] MEDS ORDERED: GABAPENTIN 300 MG CAP PO SCH (09:00)
[2019-02-11] MEDS ORDERED: ENOXAPARIN 40 MG/0.4 ML SYR SUBQ SCH (09:00)
[2019-02-11] MEDS ORDERED: LEVOFLOXACIN 750 MG/D5W PREMIX 150 ML IV SCH (09:00)
[2019-02-11] MEDS: NAPROXEN 500 MG TAB PO SCH (09:27)
--- NOTE | 2019-02-11 10:00 | NUR ---
Pt is sitting by bedside. No signs of distress noted. Pt's brother in room by Pt's bedside. Call light in reach.
[2019-02-11] MEDS ORDERED: LEVO750T2 PO (11:38)
[2019-02-11] MEDS ORDERED: hydrALAZINE 25 MG TAB PO SCH ×2 (11:43→21:00)
[2019-02-11] MEDS ORDERED: cloNIDine 0.1 MG TAB PO PRN (11:45)
--- NOTE | 2019-02-11 11:54 | NUR ---
DC PLANNIN68 Y/O MALE PATIENT FROM [facility]. ADMITTED DUE TO FEVER/ALOC. PAST MEDICAL HISTORY INCLUDE COPD, DM AND HYPERTENSION. INITIAL DIAGNOSIS OF PNEUMONIA, DELIRIUM. WBC 8.9. ON LEVAQUIN IV. CXR SHOWED CARDIOMEGALY, CHRONIC INTERSTITIAL LUNG DISEASE, CANNOT EXCLUDE SUPERIMPOSED EDEMA OR ACUTE INFILTRATE. NEPHRO CONSULT WITH DR. MARTINEZ. DC PLAN PENDING ON PATIENT'S RESPONSE TO TREATMENT.
[2019-02-11 12:00] VITALS: BP 184/96
[2019-02-11] MEDS ORDERED: NON ADHERENT DRESSING TP SCH (13:00)
[2019-02-11] MEDS ORDERED: NACL 0.9% IRR 250 ML BOTTLE IR SCH (13:00)
--- NOTE | 2019-02-11 13:55 | NUR ---
Family Psychologist Note: Basic Screen: Yes High Risk DC Screen [place]: NATALIE Bean Relationship: DAUGHTER Pre-Admission Living Arrangements: SNF Prior ADL Independent Current Home Health Name/Tel: N/A Current DME/02 Name/Tel: [facility] Current Hospice Name/Tel: N/A Current Dialysis Name/Tel: N/A Healthcare Decision Maker: Patient Advance Directive No - REFUSED Physician Orders for Life Sustaining Treatment Form No Patient/Family Have Educational Needs No Information Taught: Advance Directive Person Taught: Patient Teaching Tools: Verbal Factors Affecting Learning: None Participation Level: Refused Evaluation: Verbalizes Understanding Needs Additional Education: No Discipline: Case Mgt/Social Svcs Tentative Discharge Plan/Destination: No Needs Identified Will require assistance post discharge: No Referred to Planer Operator: No Tentative Discharge Plan Summary: Patient is a 68 year old male admitted for pneumonia and altered mental status. Patient has PMHX of asthma, COPD, diabetes, and hypertension. Patient was admitted from [facility]. SW verified demographics with patient. Patient stated his PCP is Dr. Saurav Garcia and was last seen 01/06/2019. Patient stated that he is now moving back home to [address] [place] [address] and will be living alone. SW offered resources to [facility] but patient refused. Patient reported no history of mental health and no SI/HI. Patient stated that he quit cigarettes last month. Patient reports no other substance use. SW provided education on advanced directive but patient refused. Patient's tentative plan after discharge is to return to his residence. No further needs identified. Signature: MADDISON Gray Date: Feb 11, 2019 Time: 13:54
--- NOTE | 2019-02-11 14:33 | NUR ---
PCP Appointment: ALBERT contacted Ynes from Dr. Saurav Garcia's office. ALBERT scheduled hospital follow up appointment at 4:00PM on 02/17/2019 @ [address] [address] ALBERT left appointment slip in patient's chart to be given at discharge.
--- NOTE | 2019-02-11 17:46 | NUR ---
Pt was discharged at 1500. But patient waited for brother to come. Pt's discharge instruction given to him. Pt's belongings with patient. IV line removed from patient. Catheter intact. No active bleeding noted. Pt was given appointment to follow up with PCP within 1 week. Pt's medication prescription given to patient. Picture of wound on his left ankle taken. Wound was 3cms x 3cms and 1 cms x 3 cms. No exudate, no odor noted. Cleansed with NS patted dry and gauze on wound and wrapped and taped. Pt tolerated wound dressing well. No complains of pain upon discharge. Pt ambulated from bed to wheel chair with assistance of walking cane. Took patient in wheel chair to his car. Pt was accompanied by his brother to his car.
--- NOTE | 2019-02-12 08:33 | NUR ---
WOUND CARE CONSULT NOT DONE. PT. DISCHARGED.
[2019-02-12] MEDS ORDERED: ERGOCALCIFEROL 50,000 IU SGL PO SCH (09:00)
--- NOTE | 2019-02-13 09:22 | NUR ---
CALLED PT'S DAUGHTER, PHONE NUMBER ON FILE AND NO ANSWER.
--- NOTE | 2019-02-13 09:23 | NUR ---
CALLED [facility] AND PT IS NO LONGER A RESIDENT THERE. THEY STATED PT WENT HOME.
== END 2019-02-11 17:30 | disposition home or self-care (01) | DRG 871 ==
LOC: MED 12:50 → MTU 15:36
PROVIDERS: ADMIT Internal Medicine Pulmonary Disease; ATTEND Internal Medicine Pulmonary Disease
DX: A41.9 Sepsis, unspecified organism (principal); J18.9 Pneumonia, unspecified organism; G93.41 Metabolic encephalopathy; N39.0 Urinary tract infection, site not specified; J96.11 Chronic respiratory failure with hypoxia; E44.1 Mild protein-calorie malnutrition; J44.9 Chronic obstructive pulmonary disease, unspecified; E11.9 Type 2 diabetes mellitus without complications; I10 Essential (primary) hypertension; E78.00 Pure hypercholesterolemia, unspecified; G89.29 Other chronic pain; Z79.84 Long term (current) use of oral hypoglycemic drugs; Z79.4 Long term (current) use of insulin; Z79.899 Other long term (current) drug therapy; Z87.891 Personal history of nicotine dependence; Z68.30 Body mass index [BMI] 30.0-30.9, adult
CPT/HCPCS: 36415; 71045; 80053; 81001; 82948; 83605; 83690; 84484; 85025; 85610; 87040; 87070; 87081; 87086; 87186; 87804; 93005; 94640; 96361; 96365; 99291; J1630; J1650; J1815; J1956; J7120; J7644; Q0092

== ENCOUNTER 2019-04-28 17:22 | Emergency (ER) | payer OTHER ==
[~2019-04-28] VITALS: Ht 175.3 cm; Wt 94.3 kg
[~2019-04-28 17:22] MED LIST changes: +ATRN INH; -CALC-784 PO; +CALC1CAP PO; +ERGO500028 PO; -FERR325E14 PO; -FLONAS NS; +HYDR-5122 PO; +LEVO750T2 PO; +NAPR-54 PO; +PRON INH
[2019-04-28 17:35] VITALS: BP 155/101
--- NOTE | 2019-04-28 18:40 | NUR ---
DR. MICHAEL AT BEDSIDE.
--- NOTE | 2019-04-28 18:40 | NUR ---
68 Y/M PRESENTS TO ED FOR RASH X 2 MONTHS. GAVE HIM PERMETHRIN BUT RASH HAS UNRESOLVED. RASH TO BACK, TORSO, B LEGS. DENIES FEVER, CHILLS, N/V CP OR DIFFICULTY BREATHING NKDA
[2019-04-28] MEDS ORDERED: predniSONE 20 MG TAB PO ONE (18:45)
[2019-04-28 19:07] VITALS: BP 155/101
--- NOTE | 2019-04-28 19:07 | NUR ---
Patient discharged with v/s stable. Written and verbal after care instructions given and explained. Patient alert, oriented and verbalized understanding of instructions. Ambulatory with steady gait. All questions addressed prior to discharge. ID band removed. Patient advised to follow up with PMD. Rx of BENADRYL AND PREDNISONE given. Patient educated on indication of medication including possible reaction and side effects. Opportunity to ask questions provided and answered.
== END 2019-04-28 19:07 | disposition home or self-care (01) ==
LOC: MED 17:22
DX: R21 Rash and other nonspecific skin eruption (principal); J44.9 Chronic obstructive pulmonary disease, unspecified; I10 Essential (primary) hypertension; E11.9 Type 2 diabetes mellitus without complications; F17.210 Nicotine dependence, cigarettes, uncomplicated; Z79.899 Other long term (current) drug therapy; Z79.84 Long term (current) use of oral hypoglycemic drugs
CPT/HCPCS: 99283; J7512

== ENCOUNTER 2019-06-12 16:46 | Emergency (ER) | payer OTHER ==
[~2019-06-12] VITALS: Ht 175.3 cm; Wt 89.8 kg
[2019-06-12 17:00] VITALS: BP 125/68
--- NOTE | 2019-06-12 17:00 | NUR ---
PT TRIAGED, AMBULATED TO BED WITH CANE.
--- NOTE | 2019-06-12 17:05 | NUR ---
68 Y/O MALE C/O PRIMARY DOCTOR SENT PT TO ER ROUTINE BLOOD WORK HAD GLUCOSE RESULT OF 400+. PT STATES HE TAKES METFORMIN DAILY. PT ALSO C/O BUMPS ON BODY FOR 2 MONTHS, WHICH HIS PASSENGER SERVICE AGENT IS MANAGING AND HAS PRESCRIBED TOPCIAL CREAM FOR. PT DENIES ANY VISION/MENTATION CHANGES.DENIES N/V/D; SKIN IS PINK/WARM/DRY; AAOX4 WITH EVEN AND STEADY GAIT;PT DENIES ANY FEVER, CP, SOB, OR COUGH AT THIS TIME; PATIENT STATES PAIN OF 0/10 AT THIS TIME; VSS; PATIENT POSITIONED FOR COMFORT; HOB ELEVATED; BEDRAILS UP X2; BED DOWN AND WHEELS LOCKED. MEDICAL HX: COPD/DIABETES/HTN NKA
--- NOTE | 2019-06-12 17:17 | NUR ---
AT BEDSIDE EXAMINING PT
[2019-06-12] MEDS ORDERED: NACL 0.9% 500 ML IV ONE (17:21)
[2019-06-12 18:03] LABS: BASOPHILS % (AUTO) 0.1 % (0.0-2.0); EOSINOPHILS # (AUTO) 0.4 K/uL (0-0.4); EOSINOPHILS % (AUTO) 3.9 % (0.0-4.0); HEMATOCRIT 33.7 % (36-52); HEMOGLOBIN 10.6 g/dL (12.0-18.0); LYMPHOCYTES # (AUTO) 0.5 K/uL (2.0-11.5); LYMPHOCYTES % (AUTO) 4.5 % (20.5-51.1); MEAN CORPUSCULAR HEMOGLOBIN 24 pg (27-31); MEAN CORPUSCULAR HGB CONC 31 g/dL (33-37); MONOCYTES # (AUTO) 0.6 K/uL (0.8-1.0); MONOCYTES % (AUTO) 5.9 % (1.7-9.3); NEUTROPHILS # (AUTO) 8.5 K/uL (1.8-7.7); NEUTROPHILS % (AUTO) 85.6 % (42.2-75.2); PLATELET COUNT (AUTO) 195 K/uL (140-450); RED BLOOD CELL COUNT(AUTO) 4.38 MIL/uL (4.20-6.10); RED CELL DISTRIBUTION WIDTH 21.2 % (11.6-13.7)
--- NOTE | 2019-06-12 18:05 | NUR ---
PT SCRATCHING AND ACCIDENTALLY REMOVED L FA IV, CANNULA INTACT. L WRIST 20G IV PLACED.
[2019-06-12 18:12] LABS: ACETONE, SERUM NEGATIVE (NEGATIVE)
[2019-06-12 18:19] LABS: ALBUMIN 2.9 g/dL (3.4-5.0); ANION GAP 10.6 (8-16); ASPARTATE AMINOTRANSFERASE 8 U/L (15-37); CARBON DIOXIDE 33.8 mmol/L (21-32); CHLORIDE 95 mmol/L (98-107); CREATININE 2.5 mg/dL (0.6-1.3); GFR ARICAN-AMERICAN 33 mL/min (>90); POTASSIUM 3.4 mmol/L (3.5-5.1); SODIUM SERUM 136 mmol/L (136-145); TOTAL BILIRUBIN 0.5 mg/dL (0.0-1.0); UREA NITROGEN, BLOOD 40 mg/dL (7-18)
[2019-06-12] MEDS ORDERED: INSULIN REGULAR, HUMAN 100 UNIT/ML VIAL IVP ONE ×2 (18:25→18:45)
[2019-06-12 18:30] VITALS: BP 124/70
[2019-06-12 18:36] LABS: GLUCOSE 495 mg/dL (74-106)
--- NOTE | 2019-06-12 19:10 | NUR ---
Pt report given to JULIANNA MOSLEY. Transfer of care at this time.
--- NOTE | 2019-06-12 19:30 | NUR ---
BLOOD GLUCOSE 393. PROVIDER NOTIFIED.
[2019-06-12] MEDS ORDERED: INSULIN REGULAR, HUMAN 100 UNIT/ML VIAL SUBQ ONE (19:45)
--- NOTE | 2019-06-12 19:45 | NUR ---
4 UNITS SQ INSULIN GIVEN PER PROVIDERS ORDERS. WILL CONTINUE TO MONITOR.
--- NOTE | 2019-06-12 20:17 | NUR ---
378 BLOOD GLUCOSE RECHECK AFTER INSULIN ADMINISTRATION. NOTIFIED.
--- NOTE | 2019-06-12 20:27 | NUR ---
Patient discharged with v/s stable. Written and verbal after care instructions given and explained. Patient verbalized understanding. Ambulatory with steady gait. All questions addressed prior to discharge. Advised to follow up with PMD.
--- NOTE | 2019-06-14 15:59 | NUR ---
ER MD DR KAYLIN GARNER AEROBIC CULTURE RESULTS (PRELIMINARY) NO ORDERS GIVEN.
== END 2019-06-12 20:25 | disposition home or self-care (01) ==
LOC: MED 16:46
DX: E11.65 Type 2 diabetes mellitus with hyperglycemia (principal); R21 Rash and other nonspecific skin eruption; J44.9 Chronic obstructive pulmonary disease, unspecified; I10 Essential (primary) hypertension; Z79.84 Long term (current) use of oral hypoglycemic drugs; Z79.899 Other long term (current) drug therapy
CPT/HCPCS: 36415; 80053; 82009; 82948; 85025; 87040; 87070; 87186; 96361; 96372; 96374; 99284; J1815; J7030

== ENCOUNTER 2019-07-01 13:37 | Inpatient (IN) | payer OTHER ==
[~2019-07-01] VITALS: Ht 175.3 cm; Wt 89.4 kg
[2019-07-01 13:46] VITALS: BP 125/54
[2019-07-01] MEDS ORDERED: NACL 0.9% 1,000 ML IV ONE (14:45)
[2019-07-01 14:51] LABS: BASOPHILS # (AUTO) 0.1 K/uL (0.00-0.22); BASOPHILS % (AUTO) 0.5 % (0.0-2.0); EOSINOPHILS # (AUTO) 0.1 K/uL (0-0.4); EOSINOPHILS % (AUTO) 0.7 % (0.0-4.0); HEMATOCRIT 31.7 % (36-52); HEMOGLOBIN 9.9 g/dL (12.0-18.0); LYMPHOCYTES # (AUTO) 0.3 K/uL (2.0-11.5); LYMPHOCYTES % (AUTO) 2.5 % (20.5-51.1); MEAN CORPUSCULAR HEMOGLOBIN 24 pg (27-31); MEAN CORPUSCULAR HGB CONC 31 g/dL (33-37); MEAN CORPUSCULAR VOLUME 76.3 fL (80-94); MONOCYTES # (AUTO) 0.5 K/uL (0.8-1.0); MONOCYTES % (AUTO) 4.7 % (1.7-9.3); NEUTROPHILS # (AUTO) 10.4 K/uL (1.8-7.7); NEUTROPHILS % (AUTO) 91.6 % (42.2-75.2); PLATELET COUNT (AUTO) 360 K/uL (140-450); RED BLOOD CELL COUNT(AUTO) 4.15 MIL/uL (4.20-6.10); RED CELL DISTRIBUTION WIDTH 18.9 % (11.6-13.7); WHITE BLOOD COUNT (AUTO) 11.4 K/uL (4.8-10.8)
[2019-07-01 15:13] LABS: ALBUMIN 2.4 g/dL (3.4-5.0); ANION GAP 9.2 (8-16); CARBON DIOXIDE 32.9 mmol/L (21-32); CREATININE 2.9 mg/dL (0.6-1.3); POTASSIUM 4.1 mmol/L (3.5-5.1); TOTAL BILIRUBIN 0.7 mg/dL (0.0-1.0)
[2019-07-01] MEDS ORDERED: DEXTROSE 50% 50 ML SYR IVP PRN (16:00)
[2019-07-01] MEDS ORDERED: MORPHINE SULFATE 2 MG/ML SYR IVP PRN (16:00)
[2019-07-01] MEDS ORDERED: VANCOMYCIN 500 MG in DEXTROSE 5% 100 ML IV ONE (16:00)
[2019-07-01] MEDS ORDERED: ONDANSETRON 4 MG/2 ML VIAL IVP PRN (16:00)
[2019-07-01] MEDS ORDERED: ACETAMINOPHEN 325 MG TAB PO PRN (16:00)
[2019-07-01] MEDS ORDERED: cefTRIAXone 1,000 MG VIAL ONE (16:03)
[2019-07-01] MEDS ORDERED: VANCOMYCIN 1,000 MG VIAL ONE (16:04)
[2019-07-01] MEDS ORDERED: INSULIN REGULAR, HUMAN 100 UNIT/ML VIAL IVP ONE (16:20)
[2019-07-01] MEDS: BLOOD GLUCOSE MONITORING 1 DEV DEV FS SCH ×2 (16:30→20:36)
[2019-07-01 17:00] VITALS: BP 130/65
[2019-07-01 17:21] LABS: PROTHROMBIN TIME 10.2 secs (10.8-13.4)
[2019-07-01] MEDS: PIPERACILLIN/TAZOBACTAM 2.25 GM in DEXTROSE 5% 50 ML IV SCH ×2 (18:28→23:51)
[2019-07-01] MEDS: INSULIN LISPRO SLIDING SCALE 100 UNITS/ML VIAL SUBQ PRN (20:54)
[2019-07-01] MEDS ORDERED: PIPERACILLIN/TAZOBACTAM 3.375 GM in DEXTROSE 5% 50 ML IV SCH (21:00)
[2019-07-01] MEDS: HYDROcodone/APAP 5/325 MG 1 TAB TAB PO PRN (21:23)
[2019-07-02 00:30] VITALS: BP 142/56
[2019-07-02] MEDS: HYDROcodone/APAP 5/325 MG 1 TAB TAB PO PRN ×2 (02:41→21:00)
[2019-07-02] MEDS: PIPERACILLIN/TAZOBACTAM 2.25 GM in DEXTROSE 5% 50 ML IV SCH ×4 (05:19→23:57)
[2019-07-02 06:24] LABS: ALBUMIN 2.1 g/dL (3.4-5.0); ANION GAP 7.3 (8-16); CARBON DIOXIDE 34.6 mmol/L (21-32); CREATININE 2.4 mg/dL (0.6-1.3); MAGNESIUM 1.8 mg/dL (1.8-2.4); POTASSIUM 3.9 mmol/L (3.5-5.1); TOTAL BILIRUBIN 0.4 mg/dL (0.0-1.0)
[2019-07-02 06:53] LABS: BASOPHILS % (AUTO) 0.4 % (0.0-2.0); EOSINOPHILS # (AUTO) 0.4 K/uL (0-0.4); EOSINOPHILS % (AUTO) 5.5 % (0.0-4.0); HEMATOCRIT 31.1 % (36-52); HEMOGLOBIN 9.9 g/dL (12.0-18.0); LYMPHOCYTES # (AUTO) 0.6 K/uL (2.0-11.5); LYMPHOCYTES % (AUTO) 7.5 % (20.5-51.1); MEAN CORPUSCULAR HEMOGLOBIN 24 pg (27-31); MEAN CORPUSCULAR HGB CONC 32 g/dL (33-37); MEAN CORPUSCULAR VOLUME 75.7 fL (80-94); MONOCYTES # (AUTO) 0.7 K/uL (0.8-1.0); MONOCYTES % (AUTO) 9.1 % (1.7-9.3); NEUTROPHILS # (AUTO) 6.1 K/uL (1.8-7.7); NEUTROPHILS % (AUTO) 77.5 % (42.2-75.2); PLATELET COUNT (AUTO) 335 K/uL (140-450); RED BLOOD CELL COUNT(AUTO) 4.11 MIL/uL (4.20-6.10); RED CELL DISTRIBUTION WIDTH 19.1 % (11.6-13.7); WHITE BLOOD COUNT (AUTO) 7.9 K/uL (4.8-10.8)
[2019-07-02] MEDS: BLOOD GLUCOSE MONITORING 1 DEV DEV FS SCH ×4 (07:02→20:23)
[2019-07-02] MEDS: INSULIN LISPRO SLIDING SCALE 100 UNITS/ML VIAL SUBQ PRN ×5 (07:04→20:38)
[2019-07-02 08:00] VITALS: BP 126/75
[2019-07-02] MEDS: ENOXAPARIN 30 MG/0.3 ML SYR SUBQ SCH (09:00)
[2019-07-02] MEDS ORDERED: ASPIRIN 81 MG TAB.CHEW PO SCH (09:00)
[2019-07-02] MEDS ORDERED: ENOXAPARIN 40 MG/0.4 ML SYR SUBQ SCH (09:00)
[2019-07-02] MEDS ORDERED: LIDOCAINE 1% 500 MG/50 ML VIAL ONE (09:05)
[2019-07-02] MEDS ORDERED: BUPIVACAINE-MPF 0.5% 30 ML VIAL INJ ONE (09:05)
[2019-07-02] MEDS ORDERED: SEVOFLURANE 250 ML BTL INH ONE (09:45)
[2019-07-02] MEDS ORDERED: PROPOFOL 200 MG/20 ML VIAL IV ONE (09:45)
[2019-07-02] MEDS ORDERED: fentaNYL 0.05 MG/ML VIAL ONE (09:45)
[2019-07-02] MEDS ORDERED: MORPHINE SULFATE 4 MG/ML SYR IV PRN (11:15)
[2019-07-02] MEDS ORDERED: ONDANSETRON 4 MG/2 ML VIAL IVP PRN ×2 (11:15→11:30)
[2019-07-02] MEDS ORDERED: HYDROmorphone 1 MG/ML AMP IVP PRN ×2 (11:15→11:30)
[2019-07-02] MEDS ORDERED: MORPHINE SULFATE 2 MG/ML SYR IVP PRN (11:15)
[2019-07-02] MEDS ORDERED: BLOOD GLUCOSE MONITORING 1 DEV DEV FS SCH (11:30)
[2019-07-02] MEDS ORDERED: diphenhydrAMINE 50 MG/ML VIAL IVP PRN (11:30)
[2019-07-02] MEDS: NACL 0.9% 1,000 ML IV SCH ×2 (12:18→20:20)
[2019-07-02] MEDS: HYDROCOLLOID DRESSING TP SCH (13:39)
[2019-07-02] MEDS: GAUZE TP SCH (13:39)
[2019-07-02 16:00] VITALS: BP 130/74
[2019-07-03] VITALS: BP 150/71
[2019-07-03] MEDS: NACL 0.9% 1,000 ML IV SCH ×3 (04:06→20:46)
[2019-07-03] MEDS: PIPERACILLIN/TAZOBACTAM 2.25 GM in DEXTROSE 5% 50 ML IV SCH ×3 (05:22→17:48)
[2019-07-03] MEDS: BLOOD GLUCOSE MONITORING 1 DEV DEV FS SCH ×4 (05:43→21:00)
[2019-07-03] MEDS: INSULIN LISPRO SLIDING SCALE 100 UNITS/ML VIAL SUBQ PRN ×4 (05:44→20:38)
[2019-07-03 06:15] LABS: HEMOGLOBIN 9.8 g/dL (12.0-18.0); MEAN CORPUSCULAR HEMOGLOBIN 24 pg (27-31); MEAN CORPUSCULAR HGB CONC 32 g/dL (33-37); MEAN CORPUSCULAR VOLUME 76.4 fL (80-94); RED BLOOD CELL COUNT(AUTO) 4.04 MIL/uL (4.20-6.10); RED CELL DISTRIBUTION WIDTH 18.6 % (11.6-13.7); WHITE BLOOD COUNT (AUTO) 7.4 K/uL (4.8-10.8)
[2019-07-03 07:21] LABS: BASOPHILS % (MANUAL) 0 % (0-2); EOSINOPHILS % (MANUAL) 10 % (0-4); LYMPHOCYTES % (MANUAL) 11 % (20-46); MONOCYTES % (MANUAL) 5 % (5-12)
[2019-07-03 07:22] LABS: PLATELET COUNT (AUTO) 319 K/uL (140-450)
[2019-07-03 07:23] LABS: HEMATOCRIT 30.9 % (36-52)
[2019-07-03 08:00] VITALS: BP 163/91
[2019-07-03] MEDS: ENOXAPARIN 30 MG/0.3 ML SYR SUBQ SCH (09:51)
[2019-07-03] MEDS ORDERED: amLODIPine 5 MG TAB PO SCH (11:15)
[2019-07-03] MEDS: HYDROcodone/APAP 5/325 MG 1 TAB TAB PO PRN (11:18)
[2019-07-03] MEDS ORDERED: SULF-58 PO (11:43)
[2019-07-03] MEDS ORDERED: AMOX-1000 PO (11:43)
[2019-07-03] MEDS: GAUZE TP SCH (12:00)
[2019-07-03] MEDS ORDERED: MUPIROCIN CA NASAL 2% 1GM TUBE NS SCH (13:00)
[2019-07-03] MEDS ORDERED: CHLORHEXADINE GLUC 2% CLOTH TP SCH (13:00)
[2019-07-03 16:00] VITALS: BP 156/73
[2019-07-04] VITALS: BP 168/89
[2019-07-04] MEDS: NACL 0.9% 1,000 ML IV SCH (00:36)
[2019-07-04] MEDS: PIPERACILLIN/TAZOBACTAM 2.25 GM in DEXTROSE 5% 50 ML IV SCH ×3 (00:36→11:08)
[2019-07-04] MEDS: HYDROCOLLOID DRESSING TP SCH (01:00)
[2019-07-04] MEDS: BLOOD GLUCOSE MONITORING 1 DEV DEV FS SCH ×2 (06:12→11:13)
[2019-07-04] MEDS: INSULIN LISPRO SLIDING SCALE 100 UNITS/ML VIAL SUBQ PRN (06:20)
[2019-07-04 07:53] VITALS: BP 142/76
[2019-07-04 08:00] VITALS: BP 161/90
[2019-07-04] MEDS: HYDROcodone/APAP 5/325 MG 1 TAB TAB PO PRN ×2 (08:27)
[2019-07-04] MEDS: ENOXAPARIN 30 MG/0.3 ML SYR SUBQ SCH (08:30)
== END 2019-07-04 13:15 | disposition home health service (06) | DRG 464 ==
LOC: MED 13:37 → MTU 15:58
PROVIDERS: ADMIT Hospitalist; ATTEND Hospitalist
PROC: 0JB90ZZ Excision of Buttock Subcutaneous Tissue and Fascia, Open Approach (ICD-10-PCS; principal; 2019-07-02 10:00)
DX: M72.6 Necrotizing fasciitis (principal); L02.31 Cutaneous abscess of buttock; N17.9 Acute kidney failure, unspecified; L03.317 Cellulitis of buttock; E44.0 Moderate protein-calorie malnutrition; D63.8 Anemia in other chronic diseases classified elsewhere; E78.5 Hyperlipidemia, unspecified; J44.9 Chronic obstructive pulmonary disease, unspecified; K21.9 Gastro-esophageal reflux disease without esophagitis; G89.29 Other chronic pain; I10 Essential (primary) hypertension; E11.42 Type 2 diabetes mellitus with diabetic polyneuropathy; I12.9 Hypertensive chronic kidney disease with stage 1 through stage 4 chronic kidney disease, or unspecified chronic kidney disease; E11.22 Type 2 diabetes mellitus with diabetic chronic kidney disease; N18.3 Chronic kidney disease, stage 3 (moderate)
CPT/HCPCS: 36415; 71045; 72192; 80053; 82948; 83605; 83735; 85025; 85610; 85730; 87070; 87081; 87186; 93005; 96361; 96365; 99285; J0696; J1170; J1650; J1815; J2001; J2270; J2543; J2704; J3010; J3370; J3490; J7030; J7060

== ENCOUNTER 2019-07-11 09:25 | Emergency (ER) | payer OTHER ==
[~2019-07-11] VITALS: Ht 182.9 cm; Wt 113.4 kg
[~2019-07-11 09:25] MED LIST changes: +AMOX-1000 PO; -INSU100S22 SUBQ; -LEVO750T2 PO; +SULF-58 PO
[2019-07-11 09:33] VITALS: BP 101/50
--- NOTE | 2019-07-11 09:50 | NUR ---
68/M [facility] FROM HOME WITH CC: HIGH BS >500 MG/DL CHECKED BY HOME HEALTH NURSE. PT RECEIVING HOME HEALTH SERVICES FOR DIABETIC WOUNDS. OPEN WOUND NOTED AT LEFT LOWER LEG POSTERIORLY/MEDIALLY, DRESSING C/D/I. PT WAS RECENTLY SWITCHED FROM METFORMIN TO TRULICITY PER EMS PT DENIES PAIN, N/V, POLYURIA/POLYDIPSIA. STATES "MAYBE MORE TIRED THAN USUAL". VSS ON BEDSIDE MONITOR. FSBS 512 MG/DL AT TRIAGE. HX- COPD, DM, HTN, LEFT LOWER LEG DIABETIC WOUND W/ SKIN GRAFT, RT GLUTEAL ABSCESS Addendum: 07/11/19 at 1030 by KASSI 68/M [facility] FROM HOME WITH CC: HIGH BS >500 MG/DL CHECKED BY HOME HEALTH NURSE. PT RECEIVING HOME HEALTH SERVICES FOR DIABETIC WOUNDS. DRESSING C/D/I AT LEFT ANKLE/LOWER LEG, OPENED TO REVEAL OPEN WOUND NOTED AT LEFT LOWER LEG POSTERIORLY/MEDIALLY. HX SKIN GRAFT LLE. PT WAS RECENTLY SWITCHED FROM METFORMIN TO TRULICITY PER EMS. PT DENIES PAIN, N/V, POLYURIA/POLYDIPSIA. STATES "MAYBE MORE TIRED THAN USUAL". VSS ON BEDSIDE MONITOR. FSBS 512 MG/DL AT TRIAGE. HX- COPD, DM, HTN, LEFT LOWER LEG DIABETIC WOUND W/ SKIN GRAFT, RT GLUTEAL ABSCESS
--- NOTE | 2019-07-11 10:11 | NUR ---
DR WILCOX EVALUATING PT AT BEDSIDE
[2019-07-11] MEDS ORDERED: NACL 0.9% 500 ML IV ONE (10:12)
--- NOTE | 2019-07-11 10:29 | NUR ---
EMT AT BEDSIDE FOR EKG
--- NOTE | 2019-07-11 10:37 | NUR ---
PT LYING IN BED, COMFORTABLY, SPEAKING ON PERSONAL PHONE AT THIS TIME.
--- NOTE | 2019-07-11 10:50 | NUR ---
BLOOD DRAW PICKED UP BY [employer] SPECIFICATIONS CONTROL ASSISTANT
[2019-07-11 10:57] LABS: BASOPHILS # (AUTO) 0.1 K/uL (0.00-0.22); BASOPHILS % (AUTO) 0.7 % (0.0-2.0); EOSINOPHILS # (AUTO) 0.2 K/uL (0-0.4); EOSINOPHILS % (AUTO) 2.4 % (0.0-4.0); HEMATOCRIT 28.4 % (36-52); HEMOGLOBIN 9.1 g/dL (12.0-18.0); LYMPHOCYTES # (AUTO) 0.5 K/uL (2.0-11.5); LYMPHOCYTES % (AUTO) 5.5 % (20.5-51.1); MEAN CORPUSCULAR HEMOGLOBIN 25 pg (27-31); MEAN CORPUSCULAR HGB CONC 32 g/dL (33-37); MONOCYTES # (AUTO) 0.3 K/uL (0.8-1.0); NEUTROPHILS # (AUTO) 8.6 K/uL (1.8-7.7); NEUTROPHILS % (AUTO) 88.4 % (42.2-75.2); PLATELET COUNT (AUTO) 287 K/uL (140-450); RED BLOOD CELL COUNT(AUTO) 3.68 MIL/uL (4.20-6.10); RED CELL DISTRIBUTION WIDTH 19.7 % (11.6-13.7); WHITE BLOOD COUNT (AUTO) 9.7 K/uL (4.8-10.8)
[2019-07-11 11:01] LABS: APPEARANCE,URINE SL CLOUDY (CLEAR); BILIRUBIN,URINE NEGATIVE (NEGATIVE); BLOOD, URINE TRACE-I (NEGATIVE); COLOR,URINE YELLOW (YELLOW); LEUKOCYTE ESTERASE ,URINE NEGATIVE (NEGATIVE); NITRITE, URINE NEGATIVE (NEGATIVE); PH,URINE 6.5 (5.0-9.0); UGLUCOSE 3+ (NEGATIVE)
[2019-07-11 11:16] LABS: ALBUMIN 2.8 g/dL (3.4-5.0); ANION GAP 9.4 (8-16); ASPARTATE AMINOTRANSFERASE 13 U/L (15-37); CARBON DIOXIDE 32.1 mmol/L (21-32); CHLORIDE 92 mmol/L (98-107); CREATININE 3.3 mg/dL (0.6-1.3); GFR ARICAN-AMERICAN 24 mL/min (>90); POTASSIUM 4.5 mmol/L (3.5-5.1); SODIUM SERUM 129 mmol/L (136-145); TOTAL BILIRUBIN 0.3 mg/dL (0.0-1.0); UREA NITROGEN, BLOOD 39 mg/dL (7-18)
[2019-07-11 11:17] LABS: CALCIUM OXALATE CRYSTALS,UR None Seen /HPF (None Seen); RBC,URINE 0-5 /HPF (0-5); TRICHOMONAS,URINE None Seen /HPF (None Seen); TRIPLE PHOSPHATE CRYSTAL,UR None Seen /HPF (None Seen); URIC ACID CRYSTALS,URINE None Seen /HPF (None Seen); WBC,URINE 0-5 /HPF (0-5); YEAST,URINE None Seen /HPF (None Seen)
[2019-07-11 11:18] LABS: COARSE GRANULAR CASTS,URINE None Seen /LPF (None Seen); FINE GRANULAR CASTS,URINE None Seen /LPF (None Seen); HYALINE CASTS, URINE None Seen /LPF (None Seen); OTHER CASTS, URINE None Seen /LPF (None Seen); OTHER CRYSTALS,URINE None Seen /HPF (None Seen); RED BLOOD CELL CASTS,URINE None Seen /LPF (None Seen); URINE AMORPHOUS URATE None Seen /HPF (None Seen); WAXY CASTS,URINE None Seen /LPF (None Seen)
[2019-07-11 11:28] LABS: GLUCOSE 580 mg/dL (74-106)
[2019-07-11] MEDS ORDERED: INSULIN REGULAR, HUMAN 100 UNIT/ML VIAL IVP ONE ×3 (11:35→14:50)
--- NOTE | 2019-07-11 11:42 | NUR ---
XRAY AT BEDSIDE
[2019-07-11 12:06] LABS: ACETONE, SERUM NEGATIVE (NEGATIVE)
--- NOTE | 2019-07-11 15:38 | NUR ---
CALLED PT'S BROTHER GEOVANNA ([phone]) PER PT REQUEST. BROTHER WILL COME IT TECHNICAL SPECIALIST PATIENT NOW, ETA 20 MIN
--- NOTE | 2019-07-11 16:50 | NUR ---
Patient discharged with v/s stable. Written and verbal after care instructions given and explained. Patient verbalized understanding. Wheel Chair Assisted with to car. All questions addressed prior to discharge. Advised to follow up with PMD. PICKED UP BY BROTHER
[2019-07-11 16:53] VITALS: BP 114/57
== END 2019-07-11 16:50 | disposition home or self-care (01) ==
LOC: MED 09:25
DX: E11.65 Type 2 diabetes mellitus with hyperglycemia (principal); J44.9 Chronic obstructive pulmonary disease, unspecified; I10 Essential (primary) hypertension; Z90.49 Acquired absence of other specified parts of digestive tract; Z98.890 Other specified postprocedural states; Z79.84 Long term (current) use of oral hypoglycemic drugs; Z79.899 Other long term (current) drug therapy
CPT/HCPCS: 36415; 71045; 80053; 81001; 82009; 83880; 84484; 85025; 87040; 93005; 96374; 96376; 99285; J1815; J7030; Q0092

== ENCOUNTER 2019-08-28 19:51 | Emergency (ER) | payer OTHER ==
[~2019-08-28] VITALS: Ht 175.3 cm; Wt 84.8 kg
[2019-08-28 20:07] VITALS: BP 161/90
--- NOTE | 2019-08-28 20:12 | NUR ---
PT AMBUALTORY WITH WALKER TO ROOM 11
--- NOTE | 2019-08-28 20:23 | NUR ---
XR AT BEDSIDE.
[2019-08-28] MEDS ORDERED: KETOROLAC 30 MG/ML VIAL IM ONE (20:30)
--- NOTE | 2019-08-28 20:40 | NUR ---
68 Y/O C/O LEFT HAND 3RD DIGIT AND NOSE PAIN X 1HR AGO S/P FALL. DENIES ANY LOC. BRIDGE OF NOSE SHOWS ABRASION. NO BLOOD OR DRIANGE NOTED ON BRIDGE OF NOSE. NO HEMATOMA PRESENT ON HEAD. A&OX4. USES WALKER TO AMBULATE. LEFT HAND 3R DIGIT SHOWS SWELLING AND TENDERNESS TO TOUCH. CMS INTACT ON BUE. RADIAL PULSE PRESENT BUE. NO OBVIOUS DEFORMITY NOTED. DENIES ANY N,V,FEVER, BLURRY VSION, OR [place]. VSS. NKA. PMH: HTN, DM.
--- NOTE | 2019-08-28 21:11 | NUR ---
PT TRANSFER TO CT [facility]IA [facility].
--- NOTE | 2019-08-28 21:29 | NUR ---
PT RETURNED BACK FROM [facility].
[2019-08-28 22:32] VITALS: BP 161/90
--- NOTE | 2019-08-28 22:32 | NUR ---
Patient discharged with v/s stable. Written and verbal after care instructions given and explained. Patient verbalized understanding. Ambulatory with WALKER WITH steady gait. All questions addressed prior to discharge. Advised to follow up with PMD.
== END 2019-08-28 22:32 | disposition home or self-care (01) ==
LOC: MED 19:51
DX: S63.693A Other sprain of left middle finger, initial encounter (principal); S00.31XA Abrasion of nose, initial encounter; E11.9 Type 2 diabetes mellitus without complications; I10 Essential (primary) hypertension; Z79.899 Other long term (current) drug therapy; W18.39XA Other fall on same level, initial encounter; Y93.89 Activity, other specified; Y92.89 Other specified places as the place of occurrence of the external cause; Y99.8 Other external cause status; Z79.4 Long term (current) use of insulin
CPT/HCPCS: 70450; 70486; 73130; 96372; 99285; J1885; Q0092

== ENCOUNTER 2019-10-03 11:43 | Observation (INO) | payer OTHER, SELFPAY ==
[~2019-10-03] VITALS: Ht 180.3 cm; Wt 79.4 kg
[2019-10-03 11:46] VITALS: BP 122/68
[2019-10-03 14:57] LABS: HEMATOCRIT 28.3 % (36-52); HEMOGLOBIN 8.6 g/dL (12.0-18.0); MEAN CORPUSCULAR HEMOGLOBIN 22 pg (27-31); MEAN CORPUSCULAR HGB CONC 30 g/dL (33-37); MEAN CORPUSCULAR VOLUME 70.6 fL (80-94); PLATELET COUNT (AUTO) 204 K/uL (140-450); RED BLOOD CELL COUNT(AUTO) 4.01 MIL/uL (4.20-6.10); RED CELL DISTRIBUTION WIDTH 17.9 % (11.6-13.7); WHITE BLOOD COUNT (AUTO) 15.7 K/uL (4.8-10.8)
[2019-10-03 15:14] LABS: ALBUMIN 2.8 g/dL (3.4-5.0); ANION GAP 17.1 (8-16); CREATININE 3.1 mg/dL (0.6-1.3); POTASSIUM 3.1 mmol/L (3.5-5.1); TOTAL BILIRUBIN 0.8 mg/dL (0.0-1.0)
[2019-10-03 15:15] LABS: EOSINOPHILS % (MANUAL) 4 % (0-4); LYMPHOCYTES % (MANUAL) 8 % (20-46); MONOCYTES % (MANUAL) 1 % (5-12)
[2019-10-03 15:46] LABS: BILIRUBIN,URINE NEGATIVE (NEGATIVE); BLOOD, URINE 1+ (NEGATIVE); COLOR,URINE YELLOW (YELLOW); LEUKOCYTE ESTERASE ,URINE TRACE (NEGATIVE); NITRITE, URINE POSITIVE (NEGATIVE); PH,URINE 5.5 (5.0-9.0); UGLUCOSE 3+ (NEGATIVE)
[2019-10-03 15:48] LABS: APPEARANCE,URINE HAZY (CLEAR)
[2019-10-03] MEDS ORDERED: IBUPROFEN 600 MG TAB PO ONE (15:50)
[2019-10-03 16:00] LABS: PROTHROMBIN TIME 9.1 secs (10.8-13.4)
[2019-10-03] MEDS ORDERED: BACITRACIN OINT 500 UNITS/GM PKT TP ONE ×2 (16:25→16:26)
[2019-10-03 16:52] LABS: RBC,URINE 0-5 /HPF (0-5); WBC,URINE 80-100 /HPF (0-5)
[2019-10-03] MEDS: LACTATED RINGERS 1,000 ML IV SCH (17:32)
[2019-10-03] MEDS ORDERED: DEXTROSE 50% 50 ML SYR IVP PRN (19:10)
[2019-10-03 20:00] VITALS: BP 126/59
[2019-10-03] MEDS ORDERED: POTASSIUM CHLORIDE 10 MEQ TABER PO SCH (21:00)
[2019-10-03] MEDS: BLOOD GLUCOSE MONITORING 1 DEV DEV FS SCH (21:21)
[2019-10-04] VITALS: BP 155/80
[2019-10-04] MEDS: LACTATED RINGERS 1,000 ML IV SCH ×3 (06:45→22:24)
[2019-10-04] MEDS: BLOOD GLUCOSE MONITORING 1 DEV DEV FS SCH ×4 (06:45→21:00)
[2019-10-04 08:00] VITALS: BP 132/62
[2019-10-04 08:09] LABS: BASOPHILS % (AUTO) 0.2 % (0.0-2.0); EOSINOPHILS # (AUTO) 0.2 K/uL (0-0.4); EOSINOPHILS % (AUTO) 1.7 % (0.0-4.0); HEMATOCRIT 27.9 % (36-52); HEMOGLOBIN 8.4 g/dL (12.0-18.0); LYMPHOCYTES # (AUTO) 0.5 K/uL (2.0-11.5); LYMPHOCYTES % (AUTO) 3.6 % (20.5-51.1); MEAN CORPUSCULAR HEMOGLOBIN 21 pg (27-31); MEAN CORPUSCULAR HGB CONC 30 g/dL (33-37); MEAN CORPUSCULAR VOLUME 69.9 fL (80-94); MONOCYTES # (AUTO) 0.8 K/uL (0.8-1.0); NEUTROPHILS # (AUTO) 12.2 K/uL (1.8-7.7); NEUTROPHILS % (AUTO) 88.5 % (42.2-75.2); PLATELET COUNT (AUTO) 226 K/uL (140-450); RED BLOOD CELL COUNT(AUTO) 3.98 MIL/uL (4.20-6.10); RED CELL DISTRIBUTION WIDTH 17.9 % (11.6-13.7); WHITE BLOOD COUNT (AUTO) 13.8 K/uL (4.8-10.8)
[2019-10-04 08:13] LABS: MAGNESIUM 2.1 mg/dL (1.8-2.4); PHOSPHORUS 3.7 mg/dL (2.5-4.9)
[2019-10-04] MEDS: ENOXAPARIN 30 MG/0.3 ML SYR SUBQ SCH (08:25)
[2019-10-04 08:48] LABS: ANION GAP 21.1 (8-16); CREATININE 2.5 mg/dL (0.6-1.3); POTASSIUM 3.1 mmol/L (3.5-5.1)
[2019-10-04] MEDS ORDERED: ENOXAPARIN 40 MG/0.4 ML SYR SUBQ SCH (09:00)
[2019-10-04] MEDS: INSULIN LISPRO SLIDING SCALE 100 UNITS/ML VIAL SUBQ PRN ×3 (11:58→23:23)
[2019-10-04] MEDS ORDERED: POTASSIUM CHLORIDE 10 MEQ TABER PO SCH (13:00)
[2019-10-04 16:00] VITALS: BP 156/70
[2019-10-04 20:00] VITALS: BP 122/43
[2019-10-05] MEDS: HYDROcodone/APAP 5/325 MG 1 TAB TAB PO PRN ×2 (02:25→16:25)
[2019-10-05] MEDS: INSULIN LISPRO SLIDING SCALE 100 UNITS/ML VIAL SUBQ PRN ×3 (06:28→21:14)
[2019-10-05] MEDS: BLOOD GLUCOSE MONITORING 1 DEV DEV FS SCH ×4 (07:57→21:13)
[2019-10-05 08:00] VITALS: BP 138/76
[2019-10-05 08:16] LABS: BASOPHILS % (AUTO) 0.3 % (0.0-2.0); EOSINOPHILS # (AUTO) 0.2 K/uL (0-0.4); EOSINOPHILS % (AUTO) 1.9 % (0.0-4.0); HEMATOCRIT 27.7 % (36-52); HEMOGLOBIN 8.4 g/dL (12.0-18.0); LYMPHOCYTES # (AUTO) 0.7 K/uL (2.0-11.5); LYMPHOCYTES % (AUTO) 5.6 % (20.5-51.1); MEAN CORPUSCULAR HEMOGLOBIN 21 pg (27-31); MEAN CORPUSCULAR HGB CONC 30 g/dL (33-37); MEAN CORPUSCULAR VOLUME 70.1 fL (80-94); MONOCYTES # (AUTO) 0.6 K/uL (0.8-1.0); MONOCYTES % (AUTO) 4.6 % (1.7-9.3); NEUTROPHILS # (AUTO) 11.3 K/uL (1.8-7.7); NEUTROPHILS % (AUTO) 87.6 % (42.2-75.2); PLATELET COUNT (AUTO) 233 K/uL (140-450); RED BLOOD CELL COUNT(AUTO) 3.95 MIL/uL (4.20-6.10); RED CELL DISTRIBUTION WIDTH 17.9 % (11.6-13.7); WHITE BLOOD COUNT (AUTO) 12.9 K/uL (4.8-10.8)
[2019-10-05] MEDS: LACTATED RINGERS 1,000 ML IV SCH ×2 (08:24→18:24)
[2019-10-05 08:31] LABS: ALBUMIN 2.4 g/dL (3.4-5.0); ANION GAP 10.6 (8-16); CARBON DIOXIDE 34.1 mmol/L (21-32); TOTAL BILIRUBIN 0.4 mg/dL (0.0-1.0)
[2019-10-05] MEDS: ENOXAPARIN 30 MG/0.3 ML SYR SUBQ SCH (09:00)
[2019-10-05 09:20] LABS: POTASSIUM 2.7 mmol/L (3.5-5.1)
[2019-10-05] MEDS: POTASSIUM CHLORIDE 10 MEQ TABER PO SCH ×4 (09:36→20:45)
[2019-10-05] MEDS ORDERED: INSULIN REGULAR, HUMAN 100 UNIT/ML VIAL IVP SCH (14:30)
[2019-10-05] MEDS ORDERED: INSULIN LISPRO 100 UNITS/ML VIAL SUBQ SCH (14:30)
[2019-10-05 16:00] VITALS: BP 146/86
[2019-10-06] VITALS: BP 128/59
[2019-10-06] MEDS: HYDROcodone/APAP 5/325 MG 1 TAB TAB PO PRN (00:58)
[2019-10-06] MEDS: LACTATED RINGERS 1,000 ML IV SCH ×2 (03:24→14:24)
[2019-10-06] MEDS: BLOOD GLUCOSE MONITORING 1 DEV DEV FS SCH ×4 (06:04→21:55)
[2019-10-06] MEDS: INSULIN LISPRO SLIDING SCALE 100 UNITS/ML VIAL SUBQ PRN ×4 (06:05→21:59)
[2019-10-06 08:00] VITALS: BP 154/84
[2019-10-06 08:37] LABS: BASOPHILS % (AUTO) 0.3 % (0.0-2.0); EOSINOPHILS # (AUTO) 0.2 K/uL (0-0.4); EOSINOPHILS % (AUTO) 1.5 % (0.0-4.0); HEMATOCRIT 29.4 % (36-52); HEMOGLOBIN 8.9 g/dL (12.0-18.0); LYMPHOCYTES # (AUTO) 0.8 K/uL (2.0-11.5); LYMPHOCYTES % (AUTO) 5.3 % (20.5-51.1); MEAN CORPUSCULAR HEMOGLOBIN 21 pg (27-31); MEAN CORPUSCULAR HGB CONC 30 g/dL (33-37); MEAN CORPUSCULAR VOLUME 69.8 fL (80-94); MONOCYTES # (AUTO) 1.2 K/uL (0.8-1.0); MONOCYTES % (AUTO) 8.1 % (1.7-9.3); NEUTROPHILS # (AUTO) 12.3 K/uL (1.8-7.7); NEUTROPHILS % (AUTO) 84.8 % (42.2-75.2); PLATELET COUNT (AUTO) 268 K/uL (140-450); RED BLOOD CELL COUNT(AUTO) 4.21 MIL/uL (4.20-6.10); RED CELL DISTRIBUTION WIDTH 18.4 % (11.6-13.7); WHITE BLOOD COUNT (AUTO) 14.5 K/uL (4.8-10.8)
[2019-10-06 08:47] LABS: ALBUMIN 2.6 g/dL (3.4-5.0); ANION GAP 12.8 (8-16); CARBON DIOXIDE 30.6 mmol/L (21-32); CREATININE 1.9 mg/dL (0.6-1.3); POTASSIUM 4.4 mmol/L (3.5-5.1); TOTAL BILIRUBIN 0.5 mg/dL (0.0-1.0)
[2019-10-06] MEDS: POTASSIUM CHLORIDE 10 MEQ TABER PO SCH (09:11)
[2019-10-06] MEDS: ENOXAPARIN 30 MG/0.3 ML SYR SUBQ SCH (09:16)
[2019-10-06] MEDS ORDERED: Z-GUARD PASTE TP SCH (13:00)
[2019-10-06 16:00] VITALS: BP 166/71
[2019-10-06 17:15] VITALS: BP 166/71
[2019-10-07] VITALS: BP 158/66
[2019-10-07] MEDS: LACTATED RINGERS 1,000 ML IV SCH (00:24)
[2019-10-07] MEDS: HYDROcodone/APAP 5/325 MG 1 TAB TAB PO PRN (02:59)
[2019-10-07] MEDS: BLOOD GLUCOSE MONITORING 1 DEV DEV FS SCH (06:13)
[2019-10-07] MEDS: INSULIN LISPRO SLIDING SCALE 100 UNITS/ML VIAL SUBQ PRN (06:14)
[2019-10-20] MEDS ORDERED: PIPE1PDS39 IV (11:58)
[2019-10-20] MEDS ORDERED: HUMSLIDE SUBQ (11:58)
[2019-10-20] MEDS ORDERED: LANTUS SUBQ (11:58)
== END 2019-10-07 06:25 | disposition home or self-care (01) ==
LOC: MED 11:43 → EEVIPCON 16:26 → INTOOBSV 16:26 → MTU 16:26
PROVIDERS: ADMIT Hospitalist; ATTEND Hospitalist
DX: Z03.818 Encounter for observation for suspected exposure to other biological agents ruled out (principal); I73.9 Peripheral vascular disease, unspecified; R42 Dizziness and giddiness; I87.2 Venous insufficiency (chronic) (peripheral); I12.9 Hypertensive chronic kidney disease with stage 1 through stage 4 chronic kidney disease, or unspecified chronic kidney disease; E11.22 Type 2 diabetes mellitus with diabetic chronic kidney disease; N18.9 Chronic kidney disease, unspecified; R29.6 Repeated falls; L89.899 Pressure ulcer of other site, unspecified stage; R53.81 Other malaise; J44.9 Chronic obstructive pulmonary disease, unspecified; Z95.828 Presence of other vascular implants and grafts; W18.39XA Other fall on same level, initial encounter; Y93.89 Activity, other specified; Y92.89 Other specified places as the place of occurrence of the external cause
CPT/HCPCS: 36415; 70450; 71045; 80048; 80053; 81001; 82948; 83036; 83735; 84100; 84484; 85025; 85610; 85730; 87081; 87086; 87186; 93005; 93970; 96361; 96372; 96374; 97116; 97161; 99285; G0378; J1650; J1815; J7120; Q0092; U0003